=== PATIENT | female | born 1980 | race Two or more races ===

== ENCOUNTER 2020-02-04 17:36 | Inpatient (IN) | payer BC, MEDICAID ==
[~2020-02-04] VITALS: Ht 172.7 cm; Wt 60.6 kg
[~2020-02-04 17:36] MED LIST: IBUP600T27 PO; IBUPROFEN PO
[2020-02-04 18:34] LABS: Hematocrit 12.3 % (36.0-46.0)
[2020-02-04 18:35] LABS: Mean Corpuscular Hemoglobin 32.4 pg (28.0-32.0); Mean Corpuscular Hgb Conc. 36.8 g/dL (32.0-36.0); Mean Corpuscular Volume 88.2 fL (80.0-100.0); Platelet Count (auto) 164 10^3/uL (140-450); Red Cell Distribution Width 19.2 % (11.8-14.3); White Blood Cell 6.9 10^3/uL (4.4-10.8)
[2020-02-04 18:46] LABS: Albumin 1.7 g/dL (3.4-5.0); Anion Gap 13 (5-15); Blood Alcohol < 3.0 mg/dL (0-5); Blood Urea Nitrogen 18 mg/dL (7-18); Calcium 7.6 mg/dL (8.5-10.1); Carbon Dioxide 23 mmol/L (21-32); Chloride 80 mmol/L (98-107); Glucose 120 mg/dL (74-106); INR 2.12 (0.9-1.15); Magnesium 1.7 mg/dL (1.6-2.6); Partial Thromboplastin Time 42.2 sec (23.64-32.05)
[2020-02-04 18:50] LABS: Lactic Acid w/Reflex 3.1 mmol/L (0.4-2.0)
[2020-02-04 18:52] LABS: Alanine Aminotransferase 31 U/L (13-56); Alkaline Phosphatase 151 U/L (45-117); Aspartate Aminotransferase 135 U/L (15-37); BUN/Creatinine Ratio 13.6; Bilirubin, Total 3.7 mg/dL (0.2-1.0); GFR African American 58 mL/min; GFR Non-African American 48 mL/min; Total Protein 5.6 g/dL (6.4-8.2)
[2020-02-04] MEDS ORDERED: LACTULOSE 20Gm/30ML SOLN PO ONE ×2 (19:00→19:15)
[2020-02-04] MEDS ORDERED: NOREPINEPHRINE 8 MG/250ML KIT 250 ML IV ONE (19:04)
[2020-02-04 19:14] LABS: Potassium 2.9 mmol/L (3.5-5.1); Sodium 116 mmol/L (136-145)
[2020-02-04 19:15] LABS: Band Neutrophils % (manual) 0; Basophils % (manual) 0 (0.0-2.0); Blast Cells 0; Eosinophils % (manual) 0 (0-7); Hemoglobin 4.5 g/dL (12.2-16.2); Metamyelocytes % 0; Myelocytes % 0; Promyelocytes % 0; Reactive Lymphocytes 0
[2020-02-04] MEDS: NOREPINEPHRINE 8 MG/250ML KIT 250 ML IV SCH (19:16)
[2020-02-04 19:24] LABS: Amylase 39 U/L (25-115); Lipase 386 U/L (73-393)
[2020-02-04 19:36] LABS: Alcohol, Urine < 3.0 mg/dL (0-5); Amphetamine Screen, Urine NEGATIVE (NEGATIVE); Barbiturate Scree,Urine NEGATIVE (NEGATIVE); Benzodiazephine Screen, Urine NEGATIVE (NEGATIVE); Cannabinoid Screen, Urine NEGATIVE (NEGATIVE); Cocaine Screen, Urine NEGATIVE (NEGATIVE); Opiate Scree,Urine NEGATIVE (NEGATIVE); Phencyclidine Screen, Urine NEGATIVE (NEGATIVE)
[2020-02-04] MEDS ORDERED: levoFLOXacin 750MG 150 ML IV ONE (19:45)
[2020-02-04] MEDS ORDERED: SODIUM CHLORIDE 0.9% 1,000 ML IV ONE ×2 (19:45→22:30)
[2020-02-04 20:00] LABS: Lymphocytes % (manual) 11 (10.0-50.0); Monocytes % (manual) 4 (0-12)
[2020-02-04 20:07] LABS: Urine Bacteria MANY /hpf (None Seen); Urine Blood Negative /uL (Negative); Urine Hyaline Cast MANY /lpf (0 - 2); Urine Mucus FEW (None Seen); Urine Specific Gravity 1.016 (1.001-1.035); Urine WBC 60 /hpf (0 - 5)
[2020-02-04] MEDS: POTASSIUM CHL 20MEQ/100ML 100 ML IV SCH ×2 (21:25→21:45)
[2020-02-04 22:00] VITALS: BP 88/51
[2020-02-04 22:20] VITALS: BP 106/65
[2020-02-04] MEDS ORDERED: DEXTROSE (50%) 50ML SYRG IV PRN (22:30)
[2020-02-04] MEDS ORDERED: MORPHINE SULFATE 4 MG/ML SYR/VIAL IV PRN (22:30)
[2020-02-04] MEDS: LACTULOSE 20Gm/30ML SOLN PO SCH (22:30)
[2020-02-04] MEDS ORDERED: DOCUSATE SOD 100 MG CAP PO PRN (22:30)
[2020-02-04 23:00] VITALS: BP 103/57
[2020-02-04 23:15] VITALS: BP 105/65
[2020-02-05] MEDS: InsuLIN REG 1unit/0.01ml Soln (100units/ml) SC SCH ×6 (00:45→20:00)
[2020-02-05] MEDS: LACTULOSE 20Gm/30ML SOLN PO SCH ×4 (00:54→18:15)
[2020-02-05] MEDS: ACCU-CHEK COMFORT CURVE STRIP VI SCH ×6 (00:56→20:22)
[2020-02-05 01:00] VITALS: BP 108/63
[2020-02-05] MEDS: ONDANSETRON HCL 4 MG/2 ML VIAL IV PRN (01:48)
[2020-02-05 02:11] LABS: Basophils # (auto) 0.1 10 ^3/uL (0-0.2); Basophils % (auto) 0.8 % (0.0-2.0); Eosinophils # (auto) 0 10 ^3/uL (0-0.8); Monocytes # (auto) 0.5 10 ^3/uL (0-1.3); Nucleated Red Blood Cells % 0.4 %
[2020-02-05 02:13] LABS: Hematocrit 18.2 % (36.0-46.0); Lymphocytes % (auto) 9.1 % (10.0-50.0); Mean Corpuscular Hemoglobin 31.4 pg (28.0-32.0); Mean Corpuscular Hgb Conc. 35.1 g/dL (32.0-36.0); Mean Corpuscular Volume 89.6 fL (80.0-100.0); Monocytes % (auto) 4.3 % (0.0-12.0); Neutrophils # (auto) 9.9 10 ^3/uL (1.6-8.6); Neutrophils % (auto) 85.8 % (37.0-80.0); Platelet Count (auto) 180 10^3/uL (140-450); Red Blood Cells 2.03 10^6/uL (4.0-5.20); Red Cell Distribution Width 17.1 % (11.8-14.3); White Blood Cell 11.5 10^3/uL (4.4-10.8)
[2020-02-05 02:24] LABS: Hemoglobin 6.4 g/dL (12.2-16.2)
[2020-02-05 02:32] LABS: Calcium 7.3 mg/dL (8.5-10.1); Potassium 3.1 mmol/L (3.5-5.1)
[2020-02-05 02:35] LABS: BUN/Creatinine Ratio 12.6
[2020-02-05 03:00] VITALS: BP 101/58
[2020-02-05 03:19] LABS: Hepatitis B Surface Antibody Negative
[2020-02-05 06:04] LABS: Hepatitis A Total Antibody Negative; Hepatitis B Core Total AB Negative; Hepatitis B Surface Antigen Negative (Negative); Hepatitis C Antibody Negative (Negative)
[2020-02-05 08:10] VITALS: BP 102/65
[2020-02-05 09:44] LABS: Basophils # (auto) 0.1 10 ^3/uL (0-0.2); Eosinophils # (auto) 0 10 ^3/uL (0-0.8); Hemoglobin 8.4 g/dL (12.2-16.2); Monocytes # (auto) 0.5 10 ^3/uL (0-1.3); Red Blood Cells 2.69 10^6/uL (4.0-5.20)
[2020-02-05 09:46] LABS: Basophils % (auto) 0.7 % (0.0-2.0); Hematocrit 24.2 % (36.0-46.0); Lymphocytes # (auto) 1.5 10 ^3/uL (0.4-5.4); Lymphocytes % (auto) 12.5 % (10.0-50.0); Mean Corpuscular Hemoglobin 31.4 pg (28.0-32.0); Mean Corpuscular Hgb Conc. 34.8 g/dL (32.0-36.0); Mean Corpuscular Volume 90.2 fL (80.0-100.0); Monocytes % (auto) 4.3 % (0.0-12.0); Neutrophils # (auto) 9.9 10 ^3/uL (1.6-8.6); Neutrophils % (auto) 82.5 % (37.0-80.0); Nucleated Red Blood Cells % 0.1 %; Platelet Count (auto) 138 10^3/uL (140-450); Red Cell Distribution Width 15.9 % (11.8-14.3)
[2020-02-05 09:50] LABS: Albumin 1.4 g/dL (3.4-5.0); Calcium 7.1 mg/dL (8.5-10.1); Potassium 3.1 mmol/L (3.5-5.1)
[2020-02-05 09:53] LABS: BUN/Creatinine Ratio 13.7
[2020-02-05 09:55] LABS: Bilirubin, Total 6.2 mg/dL (0.2-1.0); Total Protein 5.2 g/dL (6.4-8.2)
[2020-02-05] MEDS: levoFLOXacin 750MG 150 ML IV SCH (10:09)
[2020-02-05 14:34] LABS: INR 2.04 (0.9-1.15); Partial Thromboplastin Time 42.6 sec (23.64-32.05)
[2020-02-05] MEDS ORDERED: PANTOPRAZOLE 40 MG/10 ML VIAL INJ IV ONE (15:00)
[2020-02-05] MEDS ORDERED: POTASSIUM EFFERVESENT TAB 25 MEQ PO ONE (15:00)
[2020-02-05] MEDS ORDERED: MORPHINE SULF INJ 2 MG/ML SYRINGE 1ML IV PRN (15:00)
[2020-02-05] MEDS ORDERED: FUROSEMIDE 40 MG/4 ML VIAL IV ONE (15:00)
[2020-02-05] MEDS: PANTOPRAZOLE 40mg/50ML NS AE 50 ML IV SCH ×2 (15:30→19:38)
[2020-02-05] MEDS: OCTREOTIDE ACETATE 500 MCG in SODIUM CHL 0.9% 99 ML IV SCH (16:14)
[2020-02-05 19:31] LABS: Calcium 7.3 mg/dL (8.5-10.1); Potassium 3.5 mmol/L (3.5-5.1)
[2020-02-05 19:34] LABS: BUN/Creatinine Ratio 14.4
[2020-02-05] MEDS: NOREPINEPHRINE 8 MG/250ML KIT 250 ML IV SCH (19:38)
[2020-02-06] VITALS (53 sets, daily range): BP systolic 85–103; BP diastolic 41–63
[2020-02-06] MEDS: LACTULOSE 20Gm/30ML SOLN PO SCH ×4 (00:30→18:00)
[2020-02-06] MEDS: ACCU-CHEK COMFORT CURVE STRIP VI SCH ×6 (00:30→20:00)
[2020-02-06] MEDS: OCTREOTIDE ACETATE 500 MCG in SODIUM CHL 0.9% 99 ML IV SCH ×3 (00:58→20:38)
[2020-02-06] MEDS: PANTOPRAZOLE 40mg/50ML NS AE 50 ML IV SCH ×5 (00:58→20:41)
[2020-02-06] MEDS: InsuLIN REG 1unit/0.01ml Soln (100units/ml) SC SCH ×6 (04:00→20:00)
[2020-02-06 05:28] LABS: Basophils # (auto) 0 10 ^3/uL (0-0.2); Basophils % (auto) 0.4 % (0.0-2.0); Eosinophils # (auto) 0 10 ^3/uL (0-0.8); Hematocrit 23.7 % (36.0-46.0); Hemoglobin 8.4 g/dL (12.2-16.2); Lymphocytes # (auto) 1.5 10 ^3/uL (0.4-5.4); Mean Corpuscular Hgb Conc. 35.3 g/dL (32.0-36.0); Mean Corpuscular Volume 90.7 fL (80.0-100.0); Monocytes # (auto) 0.6 10 ^3/uL (0-1.3); Monocytes % (auto) 7.6 % (0.0-12.0); Neutrophils # (auto) 6.2 10 ^3/uL (1.6-8.6); Nucleated Red Blood Cells % 0.1 %; Platelet Count (auto) 94 10^3/uL (140-450); Red Blood Cells 2.62 10^6/uL (4.0-5.20); Red Cell Distribution Width 15.8 % (11.8-14.3); White Blood Cell 8.3 10^3/uL (4.4-10.8)
[2020-02-06 05:40] LABS: BUN/Creatinine Ratio 13.5; Potassium 3.2 mmol/L (3.5-5.1)
[2020-02-06 08:44] LABS: INR 2.17 (0.9-1.15)
[2020-02-06] MEDS ORDERED: POTASSIUM CHL 20 Meq TABLET PO ONE (09:30)
[2020-02-06] MEDS ORDERED: POTASSIUM EFFERVESENT TAB 25 MEQ PO ONE (09:45)
[2020-02-06] MEDS: FUROSEMIDE 40 MG/4 ML VIAL IV SCH ×3 (09:50→12:30)
[2020-02-06] MEDS: ALBUMIN 25% 100 ML IV SCH ×2 (09:50→18:00)
[2020-02-06] MEDS ORDERED: FUROSEMIDE 40 MG/4 ML VIAL IV SCH (10:00)
[2020-02-06] MEDS: levoFLOXacin 750MG 150 ML IV SCH (12:20)
[2020-02-06 13:30] LABS: Urine Bacteria FEW /hpf (None Seen); Urine Blood 1+ /uL (Negative); Urine Specific Gravity 1.005 (1.001-1.035); Urine WBC 2 /hpf (0 - 5)
[2020-02-06 13:53] LABS: Sodium Urine 29 mmol/L (40-220)
[2020-02-06 13:55] LABS: Creatinine, Urine 16 mg/dL (30.0-125.0)
[2020-02-06] MEDS: NOREPINEPHRINE 8 MG/250ML KIT 250 ML IV SCH (17:10)
[2020-02-06] MEDS: SPIRONOLACTONE 25 MG TAB PO SCH (18:00)
[2020-02-06 19:23] LABS: Calcium 7.4 mg/dL (8.5-10.1)
[2020-02-06 19:26] LABS: BUN/Creatinine Ratio 11.1
[2020-02-07] VITALS (95 sets, daily range): BP systolic 80–127; BP diastolic 48–81
[2020-02-07] MEDS: ALBUMIN 25% 100 ML IV SCH (01:04)
[2020-02-07] MEDS: PANTOPRAZOLE 40mg/50ML NS AE 50 ML IV SCH ×5 (02:00→23:01)
[2020-02-07] MEDS: InsuLIN REG 1unit/0.01ml Soln (100units/ml) SC SCH ×6 (04:00→20:24)
[2020-02-07] MEDS: ACCU-CHEK COMFORT CURVE STRIP VI SCH ×6 (04:00→20:23)
[2020-02-07 04:31] LABS: Albumin 2.5 g/dL (3.4-5.0); Calcium 7.5 mg/dL (8.5-10.1)
[2020-02-07 04:36] LABS: BUN/Creatinine Ratio 10.2; Bilirubin, Total 7.1 mg/dL (0.2-1.0); Phosphorus 1.8 mg/dL (2.5-4.90); Total Protein 5.2 g/dL (6.4-8.2)
[2020-02-07 04:56] LABS: Potassium 2.9 mmol/L (3.5-5.1)
[2020-02-07] MEDS: LACTULOSE 20Gm/30ML SOLN PO SCH ×5 (05:34→23:35)
[2020-02-07] MEDS: POTASSIUM CHL 20MEQ/100ML 100 ML IV SCH ×2 (05:57→07:55)
[2020-02-07] MEDS: SPIRONOLACTONE 25 MG TAB PO SCH ×2 (06:00→18:06)
[2020-02-07] MEDS ORDERED: LORazepam 2MG/ML-1ML VIAL ONE (06:15)
[2020-02-07] MEDS: FUROSEMIDE 40 MG/4 ML VIAL IV SCH ×2 (07:00→09:45)
[2020-02-07] MEDS ORDERED: LORazepam 2MG/ML-1ML VIAL IV ONE (07:00)
[2020-02-07] MEDS: OCTREOTIDE ACETATE 500 MCG in SODIUM CHL 0.9% 99 ML IV SCH ×2 (07:00→17:00)
[2020-02-07 08:52] LABS: Basophils # (auto) 0.1 10 ^3/uL (0-0.2); Eosinophils # (auto) 0 10 ^3/uL (0-0.8); Platelet Count (auto) 78 10^3/uL (140-450)
[2020-02-07 08:54] LABS: Basophils % (auto) 1.4 % (0.0-2.0); Hematocrit 22.7 % (36.0-46.0); Hemoglobin 8.1 g/dL (12.2-16.2); Lymphocytes # (auto) 1.1 10 ^3/uL (0.4-5.4); Lymphocytes % (auto) 15.3 % (10.0-50.0); Mean Corpuscular Hemoglobin 33.1 pg (28.0-32.0); Mean Corpuscular Hgb Conc. 35.8 g/dL (32.0-36.0); Mean Corpuscular Volume 92.5 fL (80.0-100.0); Monocytes # (auto) 0.5 10 ^3/uL (0-1.3); Monocytes % (auto) 7.2 % (0.0-12.0); Neutrophils # (auto) 5.5 10 ^3/uL (1.6-8.6); Neutrophils % (auto) 76.1 % (37.0-80.0); Nucleated Red Blood Cells % 0.3 %; Red Blood Cells 2.45 10^6/uL (4.0-5.20); Red Cell Distribution Width 16.4 % (11.8-14.3); White Blood Cell 7.3 10^3/uL (4.4-10.8)
[2020-02-07] MEDS ORDERED: FUROSEMIDE 20 MG/2 ML VIAL ONE ×2 (09:40→09:55)
[2020-02-07] MEDS: levoFLOXacin 750MG 150 ML IV SCH (09:44)
[2020-02-07] MEDS: MIDODRINE HCL 10 MG TAB PO SCH ×2 (09:44→21:58)
[2020-02-07] MEDS ORDERED: LORazepam 2MG/ML-1ML VIAL IV PRN ×2 (10:00)
[2020-02-07] MEDS ORDERED: POTASSIUM PHOSPHATE 44 MEQ in D5W 5% 250 ML IV ONE (11:30)
[2020-02-07] MEDS: MAGNESIUM SULFATE 1GM/100ML 100 ML IV SCH ×2 (12:37→14:00)
[2020-02-07] MEDS: NOREPINEPHRINE 8 MG/250ML KIT 250 ML IV SCH ×2 (13:28→23:02)
[2020-02-07] MEDS ORDERED: PHYTONADIONE (VIT K)10 MG/ML 1ML VIAL SUBCUT ONE (15:00)
[2020-02-07] MEDS ORDERED: phytonadione 1 ML ONE (15:56)
[2020-02-07 18:49] LABS: Basophils # (auto) 0 10 ^3/uL (0-0.2); Basophils % (auto) 0.5 % (0.0-2.0); Eosinophils # (auto) 0 10 ^3/uL (0-0.8); Hematocrit 24.9 % (36.0-46.0); Hemoglobin 8.5 g/dL (12.2-16.2); Lymphocytes # (auto) 0.9 10 ^3/uL (0.4-5.4); Lymphocytes % (auto) 8.8 % (10.0-50.0); Mean Corpuscular Hemoglobin 31.8 pg (28.0-32.0); Mean Corpuscular Hgb Conc. 34.3 g/dL (32.0-36.0); Mean Corpuscular Volume 92.7 fL (80.0-100.0); Monocytes # (auto) 0.9 10 ^3/uL (0-1.3); Monocytes % (auto) 9.4 % (0.0-12.0); Neutrophils # (auto) 7.9 10 ^3/uL (1.6-8.6); Neutrophils % (auto) 81.3 % (37.0-80.0); Nucleated Red Blood Cells % 0.3 %; Platelet Count (auto) 79 10^3/uL (140-450); Red Blood Cells 2.68 10^6/uL (4.0-5.20); Red Cell Distribution Width 16.3 % (11.8-14.3); White Blood Cell 9.8 10^3/uL (4.4-10.8)
[2020-02-07 22:30] LABS: BUN/Creatinine Ratio 8.6; Calcium 7.5 mg/dL (8.5-10.1); Potassium 3.5 mmol/L (3.5-5.1)
[2020-02-08] VITALS (92 sets, daily range): BP systolic 86–121; BP diastolic 41–81
[2020-02-08] MEDS: ACCU-CHEK COMFORT CURVE STRIP VI SCH ×5 (00:05→18:13)
[2020-02-08] MEDS: InsuLIN REG 1unit/0.01ml Soln (100units/ml) SC SCH ×5 (03:49→18:00)
[2020-02-08] MEDS: PANTOPRAZOLE 40mg/50ML NS AE 50 ML IV SCH ×2 (04:25→11:17)
[2020-02-08 05:45] LABS: Albumin 1.9 g/dL (3.4-5.0); BUN/Creatinine Ratio 9.7; Calcium 7.2 mg/dL (8.5-10.1); Potassium 3.5 mmol/L (3.5-5.1)
[2020-02-08] MEDS: LACTULOSE 20Gm/30ML SOLN PO SCH ×3 (05:46→18:00)
[2020-02-08] MEDS: SPIRONOLACTONE 25 MG TAB PO SCH ×2 (05:46→18:00)
[2020-02-08 05:48] LABS: Bilirubin, Total 6.3 mg/dL (0.2-1.0); Total Protein 4.9 g/dL (6.4-8.2)
[2020-02-08 08:39] LABS: INR 1.95 (0.9-1.15); Partial Thromboplastin Time 48.1 sec (23.64-32.05)
[2020-02-08] MEDS: NOREPINEPHRINE 8 MG/250ML KIT 250 ML IV SCH (09:27)
[2020-02-08] MEDS: MIDODRINE HCL 10 MG TAB PO SCH ×2 (10:00→21:55)
[2020-02-08] MEDS: levoFLOXacin 750MG 150 ML IV SCH (11:17)
[2020-02-08] MEDS ORDERED: CLINIMIX PER PHARMACY 0 ML IV SCH (11:45)
[2020-02-08 12:44] LABS: Eosinophils # (auto) 0 10 ^3/uL (0-0.8); Hematocrit 24.6 % (36.0-46.0); Hemoglobin 8.4 g/dL (12.2-16.2); Monocytes # (auto) 1.5 10 ^3/uL (0-1.3); Platelet Count (auto) 72 10^3/uL (140-450); White Blood Cell 12.4 10^3/uL (4.4-10.8)
[2020-02-08 12:45] LABS: Basophils # (auto) 0 10 ^3/uL (0-0.2); Basophils % (auto) 0.3 % (0.0-2.0); Lymphocytes # (auto) 1.2 10 ^3/uL (0.4-5.4); Lymphocytes % (auto) 9.9 % (10.0-50.0); Mean Corpuscular Hemoglobin 31.9 pg (28.0-32.0); Mean Corpuscular Hgb Conc. 34.2 g/dL (32.0-36.0); Mean Corpuscular Volume 93.2 fL (80.0-100.0); Monocytes % (auto) 11.9 % (0.0-12.0); Neutrophils # (auto) 9.6 10 ^3/uL (1.6-8.6); Neutrophils % (auto) 77.9 % (37.0-80.0); Nucleated Red Blood Cells % 0.2 %; Red Blood Cells 2.64 10^6/uL (4.0-5.20); Red Cell Distribution Width 16.7 % (11.8-14.3)
[2020-02-08] MEDS: VASOPRESSIN 50 UNITS in D5W 5% 247.5 ML IV SCH (13:47)
[2020-02-08] MEDS: ALBUMIN 25% 50 ML IV SCH ×2 (14:16→14:30)
[2020-02-08] MEDS ORDERED: POTASSIUM CHL 20MEQ/100ML 100 ML IV ONE (16:30)
[2020-02-08] MEDS ORDERED: DEXTROSE (50%) 50ML SYRG IV SCH (18:00)
[2020-02-08] MEDS: AMINO ACID INFUSION IN D5W 1,000 ML IV NR (20:22)
[2020-02-08] MEDS: PANTOPRAZOLE 40 MG/10 ML VIAL INJ IV SCH (21:55)
[2020-02-09] VITALS (70 sets, daily range): BP systolic 82–117; BP diastolic 40–72
[2020-02-09 04:37] LABS: Calcium 7.1 mg/dL (8.5-10.1); Magnesium 1.3 mg/dL (1.6-2.6)
[2020-02-09 04:42] LABS: Basophils # (auto) 0 10 ^3/uL (0-0.2); Basophils % (auto) 0.2 % (0.0-2.0); Eosinophils # (auto) 0 10 ^3/uL (0-0.8); Hematocrit 22.3 % (36.0-46.0); Hemoglobin 7.6 g/dL (12.2-16.2); Lymphocytes # (auto) 1.4 10 ^3/uL (0.4-5.4); Lymphocytes % (auto) 9.8 % (10.0-50.0); Mean Corpuscular Hemoglobin 31.6 pg (28.0-32.0); Mean Corpuscular Hgb Conc. 33.9 g/dL (32.0-36.0); Monocytes % (auto) 14.3 % (0.0-12.0); Neutrophils # (auto) 10.4 10 ^3/uL (1.6-8.6); Neutrophils % (auto) 75.7 % (37.0-80.0); Nucleated Red Blood Cells % 0.1 %; Platelet Count (auto) 57 10^3/uL (140-450); Red Cell Distribution Width 16.5 % (11.8-14.3); White Blood Cell 13.7 10^3/uL (4.4-10.8)
[2020-02-09 04:43] LABS: BUN/Creatinine Ratio 11.5; Bilirubin, Total 7.8 mg/dL (0.2-1.0); Pre Albumin 3.8 mg/dL (20.0-40.0); Total Protein 4.9 g/dL (6.4-8.2)
[2020-02-09 05:04] LABS: Potassium 2.9 mmol/L (3.5-5.1)
[2020-02-09] MEDS ORDERED: POTASSIUM CHL 20MEQ/100ML 100 ML IV ONE (05:30)
[2020-02-09] MEDS: LACTULOSE 20Gm/30ML SOLN PO SCH ×4 (06:00→18:20)
[2020-02-09] MEDS: SPIRONOLACTONE 25 MG TAB PO SCH ×2 (06:00→18:20)
[2020-02-09] MEDS: ACCU-CHEK COMFORT CURVE STRIP VI SCH ×4 (06:15→18:21)
[2020-02-09] MEDS: InsuLIN REG 1unit/0.01ml Soln (100units/ml) SC SCH ×4 (06:15→18:22)
[2020-02-09] MEDS: FUROSEMIDE 40 MG/4 ML VIAL IV SCH (07:00)
[2020-02-09] MEDS: PANTOPRAZOLE 40 MG/10 ML VIAL INJ IV SCH ×2 (10:03→22:23)
[2020-02-09] MEDS: levoFLOXacin 750MG 150 ML IV SCH (10:05)
[2020-02-09] MEDS: POTASSIUM CHL 20MEQ/100ML 100 ML IV SCH ×4 (10:06→16:46)
[2020-02-09] MEDS: MIDODRINE HCL 10 MG TAB PO SCH ×2 (10:30→18:20)
[2020-02-09] MEDS ORDERED: SODIUM PHOSP 40 MEQ in D5W 5% 250 ML IV ONE (11:00)
[2020-02-09] MEDS: MAGNESIUM SULFATE 1GM/100ML 100 ML IV SCH ×4 (11:53→15:39)
[2020-02-09] MEDS ORDERED: POTASSIUM PHOSPHATE 44 MEQ in D5W 5% 250 ML IV ONE ×2 (12:15→19:00)
[2020-02-09] MEDS ORDERED: CLINIMIX PER PHARMACY 0 ML IV SCH (13:00)
[2020-02-09] MEDS: VASOPRESSIN 50 UNITS in D5W 5% 247.5 ML IV SCH ×2 (13:00→21:35)
[2020-02-09] MEDS: NOREPINEPHRINE BITARTRATE 16 MG in D5W 5% 250 ML IV SCH (14:26)
[2020-02-09] MEDS: AMINO ACID INFUSION IN D5W 1,000 ML IV NR (19:49)
[2020-02-09] MEDS ORDERED: TPN PER PHARMACY IV NR ×10 (20:00)
[2020-02-09] MEDS ORDERED: TPN PER PHARMACY IV SCH (20:00)
[2020-02-10] VITALS (88 sets, daily range): BP systolic 84–121; BP diastolic 36–80
[2020-02-10] MEDS: LACTULOSE 20Gm/30ML SOLN PO SCH ×5 (00:23→23:49)
[2020-02-10] MEDS: InsuLIN REG 1unit/0.01ml Soln (100units/ml) SC SCH ×4 (00:26→18:49)
[2020-02-10] MEDS: NOREPINEPHRINE BITARTRATE 16 MG in D5W 5% 250 ML IV SCH (04:00)
[2020-02-10] MEDS: ACCU-CHEK COMFORT CURVE STRIP VI SCH ×4 (05:52→18:00)
[2020-02-10] MEDS: MIDODRINE HCL 10 MG TAB PO SCH ×2 (06:00→18:47)
[2020-02-10] MEDS: SPIRONOLACTONE 25 MG TAB PO SCH ×2 (06:00→18:47)
[2020-02-10 06:08] LABS: Basophils # (auto) 0 10 ^3/uL (0-0.2); Basophils % (auto) 0.2 % (0.0-2.0); Eosinophils # (auto) 0 10 ^3/uL (0-0.8); Hematocrit 21.6 % (36.0-46.0); Hemoglobin 7.4 g/dL (12.2-16.2); Lymphocytes # (auto) 1.1 10 ^3/uL (0.4-5.4); Lymphocytes % (auto) 8.2 % (10.0-50.0); Mean Corpuscular Hemoglobin 31.9 pg (28.0-32.0); Mean Corpuscular Hgb Conc. 34.3 g/dL (32.0-36.0); Mean Corpuscular Volume 93.2 fL (80.0-100.0); Monocytes # (auto) 2.1 10 ^3/uL (0-1.3); Neutrophils % (auto) 75.6 % (37.0-80.0); Nucleated Red Blood Cells % 0.2 %; Platelet Count (auto) 51 10^3/uL (140-450); Red Blood Cells 2.32 10^6/uL (4.0-5.20); Red Cell Distribution Width 17.5 % (11.8-14.3); White Blood Cell 13.2 10^3/uL (4.4-10.8)
[2020-02-10 06:18] LABS: Potassium 4.3 mmol/L (3.5-5.1)
[2020-02-10 06:24] LABS: Albumin 1.7 g/dL (3.4-5.0); BUN/Creatinine Ratio 14.6; Calcium 6.9 mg/dL (8.5-10.1); Magnesium 1.7 mg/dL (1.6-2.6)
[2020-02-10 06:27] LABS: Bilirubin, Total 5.4 mg/dL (0.2-1.0); Phosphorus 2.2 mg/dL (2.5-4.90); Total Protein 4.6 g/dL (6.4-8.2)
[2020-02-10] MEDS: FUROSEMIDE 40 MG/4 ML VIAL IV SCH (07:06)
[2020-02-10] MEDS: PANTOPRAZOLE 40 MG/10 ML VIAL INJ IV SCH ×2 (10:17→22:03)
[2020-02-10] MEDS: levoFLOXacin 250 MG TAB PO SCH (11:00)
[2020-02-10] MEDS ORDERED: SODIUM CHL 3% 500 ML IV ONE (11:30)
[2020-02-10 13:12] LABS: Basophils # (auto) 0 10 ^3/uL (0-0.2); Basophils % (auto) 0.4 % (0.0-2.0); Eosinophils # (auto) 0 10 ^3/uL (0-0.8); Hematocrit 21.8 % (36.0-46.0); Hemoglobin 7.4 g/dL (12.2-16.2); Lymphocytes # (auto) 1.1 10 ^3/uL (0.4-5.4); Lymphocytes % (auto) 8.2 % (10.0-50.0); Mean Corpuscular Hemoglobin 31.8 pg (28.0-32.0); Mean Corpuscular Hgb Conc. 34.2 g/dL (32.0-36.0); Mean Corpuscular Volume 92.9 fL (80.0-100.0); Monocytes % (auto) 15.5 % (0.0-12.0); Neutrophils # (auto) 9.8 10 ^3/uL (1.6-8.6); Neutrophils % (auto) 75.9 % (37.0-80.0); Nucleated Red Blood Cells % 0.1 %; Platelet Count (auto) 53 10^3/uL (140-450); Red Blood Cells 2.34 10^6/uL (4.0-5.20); Red Cell Distribution Width 17.4 % (11.8-14.3); White Blood Cell 12.9 10^3/uL (4.4-10.8)
[2020-02-10 13:33] LABS: BUN/Creatinine Ratio 12.4; Calcium 7.3 mg/dL (8.5-10.1); Potassium 3.5 mmol/L (3.5-5.1)
[2020-02-10] MEDS ORDERED: FUROSEMIDE 40 MG/4 ML VIAL IV SCH (18:00)
[2020-02-10] MEDS ORDERED: TPN PER PHARMACY IV NR ×10 (20:00)
[2020-02-10] MEDS ORDERED: FUROSEMIDE 20 MG/2 ML VIAL ONE (20:51)
[2020-02-10 23:01] LABS: Hemoglobin 8.2 g/dL (12.2-16.2)
[2020-02-11] VITALS (91 sets, daily range): BP systolic 81–114; BP diastolic 32–79
[2020-02-11] MEDS: FUROSEMIDE 100 MG/10ML VIAL IV SCH ×2 (05:49→17:47)
[2020-02-11] MEDS: SPIRONOLACTONE 25 MG TAB PO SCH ×2 (05:50→17:47)
[2020-02-11] MEDS: MIDODRINE HCL 10 MG TAB PO SCH ×2 (05:50→17:47)
[2020-02-11] MEDS: LACTULOSE 20Gm/30ML SOLN PO SCH ×3 (05:50→18:00)
[2020-02-11] MEDS: NOREPINEPHRINE BITARTRATE 16 MG in D5W 5% 250 ML IV SCH (05:52)
[2020-02-11 06:10] LABS: Basophils # (auto) 0 10 ^3/uL (0-0.2); Basophils % (auto) 0.2 % (0.0-2.0); Eosinophils # (auto) 0 10 ^3/uL (0-0.8); Hematocrit 23.2 % (36.0-46.0); Hemoglobin 7.8 g/dL (12.2-16.2); Lymphocytes % (auto) 7.6 % (10.0-50.0); Mean Corpuscular Hgb Conc. 33.8 g/dL (32.0-36.0); Mean Corpuscular Volume 91.8 fL (80.0-100.0); Monocytes # (auto) 2.3 10 ^3/uL (0-1.3); Monocytes % (auto) 17.3 % (0.0-12.0); Neutrophils # (auto) 10.1 10 ^3/uL (1.6-8.6); Neutrophils % (auto) 74.9 % (37.0-80.0); Platelet Count (auto) 58 10^3/uL (140-450); Red Blood Cells 2.52 10^6/uL (4.0-5.20); Red Cell Distribution Width 18.3 % (11.8-14.3); White Blood Cell 13.5 10^3/uL (4.4-10.8)
[2020-02-11 06:29] LABS: Calcium 7.2 mg/dL (8.5-10.1); Potassium 3.3 mmol/L (3.5-5.1)
[2020-02-11 06:32] LABS: BUN/Creatinine Ratio 15.7
[2020-02-11] MEDS: PANTOPRAZOLE 40 MG/10 ML VIAL INJ IV SCH ×2 (09:41→23:52)
[2020-02-11] MEDS: levoFLOXacin 250 MG TAB PO SCH (09:42)
[2020-02-11] MEDS ORDERED: LACTULOSE 20Gm/30ML SOLN PO PRN (19:15)
[2020-02-11] MEDS: VASOPRESSIN 50 UNITS in D5W 5% 247.5 ML IV SCH ×3 (21:20)
[2020-02-11] MEDS: SODIUM CHLORIDE 1 GM TAB PO SCH (23:52)
[2020-02-12] VITALS (93 sets, daily range): BP systolic 80–110; BP diastolic 38–71
[2020-02-12 04:27] LABS: Basophils # (auto) 0 10 ^3/uL (0-0.2); Eosinophils # (auto) 0 10 ^3/uL (0-0.8); Lymphocytes # (auto) 1.2 10 ^3/uL (0.4-5.4); Platelet Count (auto) 65 10^3/uL (140-450)
[2020-02-12 04:29] LABS: Basophils % (auto) 0.2 % (0.0-2.0); Hematocrit 22.4 % (36.0-46.0); Hemoglobin 7.5 g/dL (12.2-16.2); Lymphocytes % (auto) 8.2 % (10.0-50.0); Mean Corpuscular Hemoglobin 30.6 pg (28.0-32.0); Mean Corpuscular Hgb Conc. 33.4 g/dL (32.0-36.0); Mean Corpuscular Volume 91.6 fL (80.0-100.0); Monocytes # (auto) 2.1 10 ^3/uL (0-1.3); Neutrophils # (auto) 10.9 10 ^3/uL (1.6-8.6); Neutrophils % (auto) 76.6 % (37.0-80.0); Nucleated Red Blood Cells % 0.1 %; Red Blood Cells 2.44 10^6/uL (4.0-5.20); Red Cell Distribution Width 18.6 % (11.8-14.3); White Blood Cell 14.2 10^3/uL (4.4-10.8)
[2020-02-12 04:38] LABS: BUN/Creatinine Ratio 14.4; Calcium 6.9 mg/dL (8.5-10.1)
[2020-02-12 04:48] LABS: Potassium 2.9 mmol/L (3.5-5.1)
[2020-02-12] MEDS ORDERED: POTASSIUM CHL 20 Meq TABLET PO ONE (05:15)
[2020-02-12] MEDS ORDERED: POTASSIUM CHL 20MEQ/100ML 100 ML IV ONE ×2 (05:24→11:45)
[2020-02-12] MEDS: POTASSIUM CHL 20MEQ/100ML 100 ML IV SCH ×2 (05:45→07:24)
[2020-02-12] MEDS: MIDODRINE HCL 10 MG TAB PO SCH ×3 (05:47→17:45)
[2020-02-12] MEDS: FUROSEMIDE 100 MG/10ML VIAL IV SCH (05:47)
[2020-02-12] MEDS: SPIRONOLACTONE 25 MG TAB PO SCH ×2 (05:47→17:45)
[2020-02-12] MEDS: NOREPINEPHRINE BITARTRATE 16 MG in D5W 5% 250 ML IV SCH (07:25)
[2020-02-12] MEDS: PANTOPRAZOLE 40 MG/10 ML VIAL INJ IV SCH ×2 (09:55→21:32)
[2020-02-12] MEDS: SODIUM CHLORIDE 1 GM TAB PO SCH ×2 (09:55→21:32)
[2020-02-12] MEDS: levoFLOXacin 250 MG TAB PO SCH (09:55)
[2020-02-12] MEDS ORDERED: ALBUMIN 25% 50 ML IV ONE (16:30)
[2020-02-12] MEDS: ALBUMIN 25% 50 ML IV SCH (17:20)
[2020-02-13] VITALS (90 sets, daily range): BP systolic 78–107; BP diastolic 36–64
[2020-02-13] MEDS: ALBUMIN 25% 50 ML IV SCH ×2 (00:12→08:30)
[2020-02-13 04:35] LABS: Basophils # (auto) 0.1 10 ^3/uL (0-0.2); Eosinophils # (auto) 0 10 ^3/uL (0-0.8); Eosinophils % (auto) 0.2 % (0.0-7.0); Hemoglobin 7.7 g/dL (12.2-16.2); Lymphocytes # (auto) 0.9 10 ^3/uL (0.4-5.4); Monocytes # (auto) 1.6 10 ^3/uL (0-1.3); Nucleated Red Blood Cells % 0.1 %
[2020-02-13 04:37] LABS: Basophils % (auto) 0.5 % (0.0-2.0); Hematocrit 22.7 % (36.0-46.0); Lymphocytes % (auto) 5.8 % (10.0-50.0); Mean Corpuscular Hemoglobin 31.8 pg (28.0-32.0); Mean Corpuscular Hgb Conc. 33.9 g/dL (32.0-36.0); Mean Corpuscular Volume 93.7 fL (80.0-100.0); Monocytes % (auto) 10.2 % (0.0-12.0); Neutrophils # (auto) 13.3 10 ^3/uL (1.6-8.6); Neutrophils % (auto) 83.3 % (37.0-80.0); Platelet Count (auto) 78 10^3/uL (140-450); Red Blood Cells 2.42 10^6/uL (4.0-5.20); Red Cell Distribution Width 19.5 % (11.8-14.3)
[2020-02-13 04:50] LABS: INR 1.74 (0.9-1.15)
[2020-02-13 04:52] LABS: Magnesium 1.3 mg/dL (1.6-2.6); Potassium 3.8 mmol/L (3.5-5.1)
[2020-02-13 04:57] LABS: BUN/Creatinine Ratio 13.7; Bilirubin, Total 5.7 mg/dL (0.2-1.0); Phosphorus 2.8 mg/dL (2.5-4.90); Total Protein 4.7 g/dL (6.4-8.2)
[2020-02-13] MEDS: ONDANSETRON HCL 4 MG/2 ML VIAL IV PRN (05:35)
[2020-02-13] MEDS: SPIRONOLACTONE 25 MG TAB PO SCH ×2 (06:00→18:37)
[2020-02-13] MEDS: MIDODRINE HCL 10 MG TAB PO SCH ×3 (08:00→18:36)
[2020-02-13] MEDS ORDERED: MAGNESIUM OXIDE 400 MG TAB PO ONE (11:00)
[2020-02-13] MEDS: PANTOPRAZOLE 40 MG/10 ML VIAL INJ IV SCH ×2 (12:35→22:00)
[2020-02-13] MEDS: FUROSEMIDE 100 MG/10ML VIAL IV SCH (12:35)
[2020-02-13] MEDS: levoFLOXacin 250 MG TAB PO SCH (12:36)
[2020-02-13] MEDS: NOREPINEPHRINE BITARTRATE 16 MG in SODIUM CHL 0.9% 234 ML IV SCH (12:49)
[2020-02-13] MEDS: NOREPINEPHRINE BITARTRATE 16 MG in D5W 5% 250 ML IV SCH (12:49)
[2020-02-13] MEDS: VASOPRESSIN 50 UNITS in D5W 5% 247.5 ML IV SCH (13:00)
[2020-02-13] MEDS: MAGNESIUM OXIDE 400 MG TAB PO SCH (22:00)
[2020-02-14] VITALS (94 sets, daily range): BP systolic 87–108; BP diastolic 49–68
[2020-02-14 03:45] LABS: Basophils # (auto) 0.1 10 ^3/uL (0-0.2); Basophils % (auto) 0.4 % (0.0-2.0); Eosinophils # (auto) 0 10 ^3/uL (0-0.8); Hemoglobin 7.7 g/dL (12.2-16.2); Monocytes # (auto) 1.8 10 ^3/uL (0-1.3)
[2020-02-14 03:48] LABS: Hematocrit 22.9 % (36.0-46.0); Lymphocytes # (auto) 1.1 10 ^3/uL (0.4-5.4); Lymphocytes % (auto) 6.9 % (10.0-50.0); Mean Corpuscular Hemoglobin 31.3 pg (28.0-32.0); Mean Corpuscular Hgb Conc. 33.8 g/dL (32.0-36.0); Mean Corpuscular Volume 92.5 fL (80.0-100.0); Monocytes % (auto) 11.2 % (0.0-12.0); Neutrophils # (auto) 13.3 10 ^3/uL (1.6-8.6); Neutrophils % (auto) 81.5 % (37.0-80.0); Platelet Count (auto) 95 10^3/uL (140-450); Red Blood Cells 2.48 10^6/uL (4.0-5.20); Red Cell Distribution Width 19.7 % (11.8-14.3); White Blood Cell 16.3 10^3/uL (4.4-10.8)
[2020-02-14 04:08] LABS: Potassium 3.5 mmol/L (3.5-5.1)
[2020-02-14 04:11] LABS: BUN/Creatinine Ratio 14.3
[2020-02-14] MEDS: SPIRONOLACTONE 25 MG TAB PO SCH (06:00)
[2020-02-14] MEDS: MAGNESIUM OXIDE 400 MG TAB PO SCH ×2 (08:34→23:00)
[2020-02-14] MEDS: PANTOPRAZOLE 40 MG/10 ML VIAL INJ IV SCH ×2 (08:34→23:00)
[2020-02-14] MEDS: levoFLOXacin 250 MG TAB PO SCH (08:34)
[2020-02-14] MEDS: MIDODRINE HCL 10 MG TAB PO SCH ×3 (08:34→18:09)
[2020-02-14] MEDS: VASOPRESSIN 50 UNITS in D5W 5% 247.5 ML IV SCH (08:35)
[2020-02-14] MEDS: FUROSEMIDE 100 MG/10ML VIAL IV SCH (08:35)
[2020-02-14] MEDS ORDERED: FERROUS SULFATE 325 MG TAB PO SCH (12:00)
[2020-02-14] MEDS: NOREPINEPHRINE BITARTRATE 16 MG in SODIUM CHL 0.9% 234 ML IV SCH (13:26)
[2020-02-14] MEDS ORDERED: cefTRIAXone 1GM/50ML D5W 50 ML IV ONE (14:00)
[2020-02-14] MEDS ORDERED: SODIUM FERR GLUC 125 MG in NS 100 ML IV SCH (15:00)
[2020-02-14] MEDS ORDERED: IRON SUCROSE COMPLEX 200 MG in SODIUM CHL 0.9% 100 ML IV SCH (16:00)
[2020-02-15] VITALS (57 sets, daily range): BP systolic 84–102; BP diastolic 45–66
[2020-02-15] MEDS: ONDANSETRON HCL 4 MG/2 ML VIAL IV PRN ×2 (04:05→20:38)
[2020-02-15 04:19] LABS: Basophils # (auto) 0.1 10 ^3/uL (0-0.2); Eosinophils # (auto) 0 10 ^3/uL (0-0.8); Hemoglobin 8.1 g/dL (12.2-16.2); Neutrophils # (auto) 15.6 10 ^3/uL (1.6-8.6)
[2020-02-15 04:21] LABS: Basophils % (auto) 0.7 % (0.0-2.0); Hematocrit 23.7 % (36.0-46.0); Lymphocytes % (auto) 5.3 % (10.0-50.0); Mean Corpuscular Hemoglobin 31.9 pg (28.0-32.0); Mean Corpuscular Hgb Conc. 34.1 g/dL (32.0-36.0); Mean Corpuscular Volume 93.4 fL (80.0-100.0); Monocytes # (auto) 1.7 10 ^3/uL (0-1.3); Monocytes % (auto) 9.2 % (0.0-12.0); Neutrophils % (auto) 84.8 % (37.0-80.0); Platelet Count (auto) 107 10^3/uL (140-450); Red Blood Cells 2.54 10^6/uL (4.0-5.20); White Blood Cell 18.4 10^3/uL (4.4-10.8)
[2020-02-15 04:36] LABS: Red Cell Distribution Width 21.8 % (11.8-14.3)
[2020-02-15 04:38] LABS: % Iron Saturation 94.7 % (15-50); Albumin 1.8 g/dL (3.4-5.0); BUN/Creatinine Ratio 17.5; Calcium 6.6 mg/dL (8.5-10.1); Potassium 3.7 mmol/L (3.5-5.1)
[2020-02-15 04:41] LABS: Bilirubin, Total 5.5 mg/dL (0.2-1.0); Total Protein 4.8 g/dL (6.4-8.2)
[2020-02-15] MEDS: MIDODRINE HCL 10 MG TAB PO SCH ×3 (08:23→18:22)
[2020-02-15] MEDS ORDERED: cefTRIAXone 1GM/50ML D5W 50 ML IV SCH (09:00)
[2020-02-15] MEDS: MAGNESIUM OXIDE 400 MG TAB PO SCH (09:52)
[2020-02-15] MEDS: PANTOPRAZOLE 40 MG/10 ML VIAL INJ IV SCH ×2 (09:52→22:20)
[2020-02-15] MEDS: FUROSEMIDE 100 MG/10ML VIAL IV SCH (10:00)
[2020-02-15] MEDS ORDERED: DOXYCYCLINE 100MG/250ML 250 ML IV ONE (11:00)
[2020-02-15 11:33] LABS: Magnesium 1.5 mg/dL (1.6-2.6)
[2020-02-15 11:37] LABS: Phosphorus 2.8 mg/dL (2.5-4.90)
[2020-02-15] MEDS: PIPERACILLIN-TAZOB 3.375GM 100 ML IV SCH ×2 (11:39→18:22)
[2020-02-15] MEDS ORDERED: POTASSIUM CHL 20 Meq TABLET PO ONE (13:00)
[2020-02-15] MEDS: VASOPRESSIN 50 UNITS in D5W 5% 247.5 ML IV SCH (13:00)
[2020-02-15] MEDS: MAGNESIUM SULFATE 1GM/100ML 100 ML IV SCH ×3 (14:16→15:29)
[2020-02-15] MEDS: NOREPINEPHRINE BITARTRATE 16 MG in SODIUM CHL 0.9% 234 ML IV SCH (16:00)
[2020-02-15] MEDS: DOXYCYCLINE 100MG/250ML 250 ML IV SCH (22:20)
[2020-02-16] VITALS (81 sets, daily range): BP systolic 86–107; BP diastolic 41–66
[2020-02-16] MEDS: PIPERACILLIN-TAZOB 3.375GM 100 ML IV SCH ×5 (00:05→23:50)
[2020-02-16 04:06] LABS: Basophils # (auto) 0.1 10 ^3/uL (0-0.2); Basophils % (auto) 0.7 % (0.0-2.0); Eosinophils # (auto) 0 10 ^3/uL (0-0.8); Lymphocytes % (auto) 5.8 % (10.0-50.0); Mean Corpuscular Hemoglobin 31.4 pg (28.0-32.0)
[2020-02-16 04:10] LABS: Hematocrit 22.9 % (36.0-46.0); Hemoglobin 7.7 g/dL (12.2-16.2); Mean Corpuscular Hgb Conc. 33.7 g/dL (32.0-36.0); Monocytes # (auto) 1.5 10 ^3/uL (0-1.3); Monocytes % (auto) 8.6 % (0.0-12.0); Neutrophils # (auto) 14.9 10 ^3/uL (1.6-8.6); Neutrophils % (auto) 84.9 % (37.0-80.0); Platelet Count (auto) 116 10^3/uL (140-450); Red Blood Cells 2.46 10^6/uL (4.0-5.20); White Blood Cell 17.6 10^3/uL (4.4-10.8)
[2020-02-16 04:17] LABS: Red Cell Distribution Width 22.2 % (11.8-14.3)
[2020-02-16 04:27] LABS: Albumin 1.8 g/dL (3.4-5.0); BUN/Creatinine Ratio 20.4; Bilirubin, Total 4.6 mg/dL (0.2-1.0); Calcium 6.8 mg/dL (8.5-10.1); Magnesium 2.1 mg/dL (1.6-2.6); Total Protein 4.7 g/dL (6.4-8.2)
[2020-02-16 08:10] LABS: INR 1.75 (0.9-1.15); Partial Thromboplastin Time 50.7 sec (23.64-32.05)
[2020-02-16] MEDS: MIDODRINE HCL 10 MG TAB PO SCH ×3 (08:13→17:31)
[2020-02-16] MEDS: FUROSEMIDE 100 MG/10ML VIAL IV SCH ×2 (09:37→13:03)
[2020-02-16] MEDS: PANTOPRAZOLE 40 MG/10 ML VIAL INJ IV SCH ×2 (09:38→21:52)
[2020-02-16] MEDS: DOXYCYCLINE 100MG/250ML 250 ML IV SCH ×2 (09:38→21:52)
[2020-02-16] MEDS ORDERED: FUROSEMIDE 100 MG/10ML VIAL IV ONE (10:45)
[2020-02-16] MEDS ORDERED: ALBUMIN 25% 50 ML IV ONE ×2 (11:34→11:45)
[2020-02-16] MEDS: VASOPRESSIN 50 UNITS in D5W 5% 247.5 ML IV SCH (13:00)
[2020-02-16] MEDS: NOREPINEPHRINE BITARTRATE 16 MG in SODIUM CHL 0.9% 234 ML IV SCH (17:31)
[2020-02-17] VITALS (31 sets, daily range): BP systolic 79–111; BP diastolic 40–69
[2020-02-17 04:18] LABS: Basophils # (auto) 0.1 10 ^3/uL (0-0.2); Basophils % (auto) 0.6 % (0.0-2.0); Eosinophils # (auto) 0 10 ^3/uL (0-0.8); Hematocrit 24.4 % (36.0-46.0); Hemoglobin 8.4 g/dL (12.2-16.2); Lymphocytes # (auto) 1.2 10 ^3/uL (0.4-5.4); Lymphocytes % (auto) 8.3 % (10.0-50.0); Mean Corpuscular Hemoglobin 31.9 pg (28.0-32.0); Mean Corpuscular Hgb Conc. 34.2 g/dL (32.0-36.0); Mean Corpuscular Volume 93.3 fL (80.0-100.0); Monocytes # (auto) 1.3 10 ^3/uL (0-1.3); Neutrophils # (auto) 11.5 10 ^3/uL (1.6-8.6); Neutrophils % (auto) 82.1 % (37.0-80.0); Nucleated Red Blood Cells % 0.1 %; Platelet Count (auto) 125 10^3/uL (140-450); Red Blood Cells 2.62 10^6/uL (4.0-5.20)
[2020-02-17 04:30] LABS: Potassium 3.2 mmol/L (3.5-5.1)
[2020-02-17 04:34] LABS: Calcium 7.2 mg/dL (8.5-10.1)
[2020-02-17] MEDS: PIPERACILLIN-TAZOB 3.375GM 100 ML IV SCH ×3 (05:34→17:20)
[2020-02-17] MEDS ORDERED: POTASSIUM CHL 20MEQ/100ML 100 ML IV ONE ×2 (06:15→06:18)
[2020-02-17] MEDS: MIDODRINE HCL 10 MG TAB PO SCH ×3 (07:50→17:20)
[2020-02-17] MEDS: DOXYCYCLINE 100MG/250ML 250 ML IV SCH ×2 (09:37→22:11)
[2020-02-17] MEDS: PANTOPRAZOLE 40 MG/10 ML VIAL INJ IV SCH ×2 (09:37→22:12)
[2020-02-17] MEDS: FUROSEMIDE 100 MG/10ML VIAL IV SCH ×2 (10:30→10:33)
[2020-02-17] MEDS ORDERED: POTASSIUM CHL 20 Meq TABLET PO ONE (11:00)
[2020-02-17] MEDS ORDERED: POTASSIUM EFFERVESENT TAB 25 MEQ PO ONE (11:00)
[2020-02-18] MEDS: PIPERACILLIN-TAZOB 3.375GM 100 ML IV SCH ×4 (00:33→17:37)
[2020-02-18 05:15] VITALS: BP 96/54
[2020-02-18 09:07] VITALS: BP 92/53
[2020-02-18] MEDS: DOXYCYCLINE 100MG/250ML 250 ML IV SCH ×2 (10:54→22:32)
[2020-02-18] MEDS: PANTOPRAZOLE 40 MG/10 ML VIAL INJ IV SCH ×2 (10:55→22:32)
[2020-02-18] MEDS: MIDODRINE HCL 10 MG TAB PO SCH ×3 (10:55→18:00)
[2020-02-18] MEDS: FUROSEMIDE 100 MG/10ML VIAL IV SCH (10:55)
[2020-02-18] MEDS ORDERED: POTASSIUM CHLORIDE 40 MEQ, LIDOCAINE 1% (LOCAL ANESTH.) 4 ML in SODIUM CHL 0.9% 100 ML IV ONE (11:00)
[2020-02-18] MEDS: MAGNESIUM SULFATE 1GM/100ML 100 ML IV SCH ×4 (12:00→20:39)
[2020-02-18 13:00] VITALS: BP 98/58
[2020-02-18 16:42] VITALS: BP 98/60
[2020-02-18 20:00] VITALS: BP 98/59
[2020-02-18 21:01] VITALS: BP 98/59
[2020-02-19] MEDS: PIPERACILLIN-TAZOB 3.375GM 100 ML IV SCH ×4 (02:19→20:55)
[2020-02-19 04:30] VITALS: BP 101/60
[2020-02-19 06:18] LABS: Basophils # (auto) 0.2 10 ^3/uL (0-0.2); Basophils % (auto) 1.1 % (0.0-2.0); Eosinophils # (auto) 0 10 ^3/uL (0-0.8); Hematocrit 26.2 % (36.0-46.0); Hemoglobin 8.8 g/dL (12.2-16.2); Lymphocytes # (auto) 1.5 10 ^3/uL (0.4-5.4); Lymphocytes % (auto) 9.1 % (10.0-50.0); Mean Corpuscular Hemoglobin 31.8 pg (28.0-32.0); Mean Corpuscular Hgb Conc. 33.5 g/dL (32.0-36.0); Monocytes # (auto) 1.3 10 ^3/uL (0-1.3); Monocytes % (auto) 7.7 % (0.0-12.0); Neutrophils # (auto) 13.9 10 ^3/uL (1.6-8.6); Neutrophils % (auto) 82.1 % (37.0-80.0); Platelet Count (auto) 168 10^3/uL (140-450); Red Blood Cells 2.76 10^6/uL (4.0-5.20); White Blood Cell 16.9 10^3/uL (4.4-10.8)
[2020-02-19 06:20] LABS: Red Cell Distribution Width 24.9 % (11.8-14.3)
[2020-02-19 08:55] VITALS: BP 99/54
[2020-02-19] MEDS: MIDODRINE HCL 10 MG TAB PO SCH ×3 (09:33→18:24)
[2020-02-19] MEDS: PANTOPRAZOLE 40 MG/10 ML VIAL INJ IV SCH ×2 (09:55→22:02)
[2020-02-19] MEDS: FUROSEMIDE 100 MG/10ML VIAL IV SCH (09:55)
[2020-02-19] MEDS: DOXYCYCLINE 100MG/250ML 250 ML IV SCH ×2 (09:55→23:45)
[2020-02-19] MEDS ORDERED: POTASSIUM PHOSPHATE 26.4 MEQ in SODIUM CHL 0.9% 100 ML IV ONE (11:30)
[2020-02-19 13:00] VITALS: BP 106/63
[2020-02-19 16:47] VITALS: BP 101/58
[2020-02-19 21:53] VITALS: BP 100/57
[2020-02-20] MEDS: PIPERACILLIN-TAZOB 3.375GM 100 ML IV SCH ×2 (02:57→08:52)
[2020-02-20 05:33] VITALS: BP 99/59
[2020-02-20 06:03] LABS: Basophils # (auto) 0.2 10 ^3/uL (0-0.2); Basophils % (auto) 1.3 % (0.0-2.0); Eosinophils # (auto) 0 10 ^3/uL (0-0.8); Eosinophils % (auto) 0.1 % (0.0-7.0); Hematocrit 23.8 % (36.0-46.0); Hemoglobin 8.1 g/dL (12.2-16.2); Lymphocytes # (auto) 1.4 10 ^3/uL (0.4-5.4); Lymphocytes % (auto) 10.2 % (10.0-50.0); Mean Corpuscular Hemoglobin 32.4 pg (28.0-32.0); Mean Corpuscular Hgb Conc. 34.1 g/dL (32.0-36.0); Monocytes # (auto) 1.5 10 ^3/uL (0-1.3); Neutrophils # (auto) 10.8 10 ^3/uL (1.6-8.6); Neutrophils % (auto) 77.4 % (37.0-80.0); Platelet Count (auto) 152 10^3/uL (140-450); White Blood Cell 13.9 10^3/uL (4.4-10.8)
[2020-02-20 06:04] LABS: Red Cell Distribution Width 24.9 % (11.8-14.3)
[2020-02-20 06:22] LABS: Albumin 1.7 g/dL (3.4-5.0); Calcium 7.4 mg/dL (8.5-10.1); Potassium 3.4 mmol/L (3.5-5.1)
[2020-02-20 06:25] LABS: BUN/Creatinine Ratio 28.8; Bilirubin, Total 3.4 mg/dL (0.2-1.0); Total Protein 5.2 g/dL (6.4-8.2)
[2020-02-20] MEDS: MIDODRINE HCL 10 MG TAB PO SCH ×2 (07:59→12:43)
[2020-02-20] MEDS ORDERED: POTASSIUM CHL 20 Meq TABLET PO ONE (08:30)
[2020-02-20 09:00] VITALS: BP 100/61
[2020-02-20] MEDS: PANTOPRAZOLE 40 MG/10 ML VIAL INJ IV SCH (09:40)
[2020-02-20] MEDS: DOXYCYCLINE 100MG/250ML 250 ML IV SCH (09:40)
[2020-02-20] MEDS: FUROSEMIDE 100 MG/10ML VIAL IV SCH (09:40)
[2020-02-20 13:00] VITALS: BP 113/76
[2020-02-20 13:02] VITALS: BP 100/61
[2020-03-22] MEDS ORDERED: MULTCAP45 PO ×2 (16:54)
[2020-03-22] MEDS ORDERED: FURO40TA4 PO ×2 (16:54)
[2020-03-22] MEDS ORDERED: FER325T PO ×2 (16:54)
[2020-03-22] MEDS ORDERED: PANT40TA2 PO ×2 (16:54)
[2020-03-22] MEDS ORDERED: RIFA550T PO ×2 (16:54)
[2020-03-22] MEDS ORDERED: ATOR40TA52 PO ×2 (16:54)
[2020-03-26] MEDS ORDERED: MID10T PO ×2 (13:03)
== END 2020-02-20 15:00 | disposition home or self-care (01) | DRG 720 ==
LOC: EDBD 17:36 → EDUNIT# 17:36 → ER 17:36 → OVERFLOW 17:37 → ICU WEST 02-06 10:55 → DOU IN ICU 02-09 08:05 → ICU WEST 02-11 17:29 → WEST WING 02-17 13:57 → TELE-WESTW 02-17 14:22
PROVIDERS: ADMIT Hospitalist; ATTEND Family Medicine
PROC: 02HV33Z Insertion of Infusion Device into Superior Vena Cava, Percutaneous Approach (ICD-10-PCS; 2020-02-04)
PROC: 30233N1 Transfusion of Nonautologous Red Blood Cells into Peripheral Vein, Percutaneous Approach (ICD-10-PCS; 2020-02-04)
PROC: 0W9G3ZZ Drainage of Peritoneal Cavity, Percutaneous Approach (ICD-10-PCS; principal; 2020-02-07)
PROC: 0W9G3ZZ Drainage of Peritoneal Cavity, Percutaneous Approach (ICD-10-PCS; 2020-02-16)
DX: A41.51 Sepsis due to Escherichia coli [E. coli] (principal); K72.00 Acute and subacute hepatic failure without coma; N17.0 Acute kidney failure with tubular necrosis; R65.21 Severe sepsis with septic shock; G93.41 Metabolic encephalopathy; J18.9 Pneumonia, unspecified organism; D68.9 Coagulation defect, unspecified; K92.2 Gastrointestinal hemorrhage, unspecified; E87.1 Hypo-osmolality and hyponatremia; N39.0 Urinary tract infection, site not specified; R18.8 Other ascites; D64.9 Anemia, unspecified; D69.59 Other secondary thrombocytopenia; E83.39 Other disorders of phosphorus metabolism; E83.42 Hypomagnesemia; E87.6 Hypokalemia; E87.70 Fluid overload, unspecified; G40.409 Other generalized epilepsy and epileptic syndromes, not intractable, without status epilepticus; K74.60 Unspecified cirrhosis of liver; K76.0 Fatty (change of) liver, not elsewhere classified; R62.7 Adult failure to thrive; Z79.899 Other long term (current) drug therapy; Z83.3 Family history of diabetes mellitus; Z90.710 Acquired absence of both cervix and uterus; Z91.14 Patient's other noncompliance with medication regimen; E88.09 Other disorders of plasma-protein metabolism, not elsewhere classified; R63.4 Abnormal weight loss; Z68.20 Body mass index [BMI] 20.0-20.9, adult
CPT/HCPCS: 10022; 36415; 36600; 49083; 70450; 71045; 74176; 76700; 76705; 76942; 80048; 80053; 80061; 80307; 80320; 81001; 82040; 82105; 82140; 82150; 82378; 82390; 82570; 82728; 82805; 82962; 83036; 83516; 83540; 83550; 83605; 83690; 83735; 83930; 83935; 84100; 84300; 84478; 84484; 84550; 85007; 85014; 85018; 85025; 85027; 85610; 85730; 86225; 86235; 86704; 86706; 86708; 86803; 86850; 86900; 86901; 86920; 87040; 87081; 87086; 87088; 87186; 87205; 87340; 89051; 93005; 93306; 95819; C9113; G0378; J0696; J1756; J1815; J1956; J2001; J2405; J2543; J3430; J3480; J3490; J7060; J7131; P9047

== ENCOUNTER 2020-02-28 10:55 | Inpatient (IN) | payer BC, MEDICAID ==
[~2020-02-28] VITALS: Ht 165.1 cm; Wt 56.0 kg
[2020-02-28] VITALS (7 sets, daily range): BP systolic 85–109; BP diastolic 56–77
[2020-02-28] MEDS ORDERED: LORazepam 2MG/ML-1ML VIAL ONE (11:07)
[2020-02-28 11:29] LABS: Hematocrit 26.7 % (36.0-46.0); Hemoglobin 8.8 g/dL (12.2-16.2); Mean Corpuscular Hemoglobin 31.7 pg (28.0-32.0); Mean Corpuscular Hgb Conc. 32.9 g/dL (32.0-36.0); Mean Corpuscular Volume 96.3 fL (80.0-100.0); Platelet Count (auto) 363 10^3/uL (140-450); Red Blood Cells 2.77 10^6/uL (4.0-5.20); White Blood Cell 22.8 10^3/uL (4.4-10.8)
[2020-02-28] MEDS ORDERED: LORazepam 2MG/ML-1ML VIAL IV ONE ×2 (11:30)
[2020-02-28 11:31] LABS: Urine Bacteria FEW /hpf (None Seen); Urine Blood Negative /uL (Negative); Urine Hyaline Cast FEW /lpf (0 - 2); Urine Specific Gravity 1.009 (1.001-1.035); Urine WBC 1 /hpf (0 - 5)
[2020-02-28 11:33] LABS: Red Cell Distribution Width 25.4 % (11.8-14.3)
[2020-02-28 11:35] LABS: Basophils % (manual) 0 (0.0-2.0); Blast Cells 0; Myelocytes % 0; Promyelocytes % 0; Reactive Lymphocytes 0
[2020-02-28 11:47] LABS: INR 1.65 (0.9-1.15); Partial Thromboplastin Time 42.9 sec (23.64-32.05)
[2020-02-28 11:49] LABS: Albumin 2.1 g/dL (3.4-5.0); Anion Gap 15 (5-15); Blood Urea Nitrogen 30 mg/dL (7-18); Calcium 7.4 mg/dL (8.5-10.1); Carbon Dioxide 14 mmol/L (21-32); Chloride 109 mmol/L (98-107); Glucose 177 mg/dL (74-106); Sodium 138 mmol/L (136-145)
[2020-02-28 11:51] LABS: Lactic Acid w/Reflex 5.2 mmol/L (0.4-2.0)
[2020-02-28 11:52] LABS: Band Neutrophils % (manual) 3; Eosinophils % (manual) 2 (0-7); Lymphocytes % (manual) 16 (10.0-50.0); Metamyelocytes % 1; Monocytes % (manual) 5 (0-12)
[2020-02-28 11:55] LABS: Alanine Aminotransferase 40 U/L (13-56); Alkaline Phosphatase 147 U/L (45-117); Aspartate Aminotransferase 96 U/L (15-37); BUN/Creatinine Ratio 22.2; Bilirubin, Total 3.9 mg/dL (0.2-1.0); GFR African American 56 mL/min; GFR Non-African American 47 mL/min; Total Protein 7.2 g/dL (6.4-8.2)
[2020-02-28 11:58] LABS: Potassium 2.4 mmol/L (3.5-5.1)
[2020-02-28] MEDS: POTASSIUM CHL 20MEQ/100ML 100 ML IV SCH ×3 (12:25→16:14)
[2020-02-28] MEDS ORDERED: NITROGLYCERIN 0.4 MG SL TAB SL PRN (13:00)
[2020-02-28] MEDS ORDERED: MORPHINE SULF INJ 2 MG/ML SYRINGE 1ML IV PRN (13:00)
[2020-02-28] MEDS ORDERED: LORazepam 2MG/ML-1ML VIAL IV PRN ×2 (13:00→21:45)
[2020-02-28] MEDS: DOXYCYCLINE 100MG/250ML 250 ML IV SCH (13:00)
[2020-02-28] MEDS ORDERED: ONDANSETRON HCL 4 MG/2 ML VIAL IV PRN (13:00)
[2020-02-28 13:20] LABS: Magnesium 1.5 mg/dL (1.6-2.6)
[2020-02-28 13:29] LABS: CRP High Sensitivity 1.17 mg/dL (< 0.3)
[2020-02-28] MEDS ORDERED: ALBUMIN 25% 100 ML IV ONE (16:00)
--- NOTE | 2020-02-28 17:15 | NUR ---
Admit to [facility] admitted to [facility] via gurney on classroom monitor, and portable 02. Patient transfered to bed, connected to unit monitoring and oxygen, [facility]. Patient awake and oriented x3, re-oriented to time, fatigued, follows simple commands, speaks with a soft voice. No S/S of SOB or pain. Patient saturation 100% at 2 LPM oxygen via nasal cannula. See interventions for complete assessment. Bed locked on low position, padded side rails up x2, bed alarms on at all times, call de leon within reach, instructed to call for needed assistance. Patient oriented to Ginette mock RN, unit, room, bed, and unit policies regarding patient care and visiting hours. All questions and concerns addressed, patient verbalized understanding.
--- NOTE | 2020-02-28 17:16 | NUR ---
Per NEWBORN PHOTOGRAPHER consult to Dr Morejon has been called.
--- NOTE | 2020-02-28 17:30 | NUR ---
MRSA swab sent to lab
[2020-02-28] MEDS ORDERED: DOXY100C2 PO (18:20)
[2020-02-28] MEDS ORDERED: RIFA550T PO (18:20)
[2020-02-28] MEDS ORDERED: FURO40TA4 PO (18:20)
[2020-02-28] MEDS ORDERED: POTA1TAB61 PO (18:20)
--- NOTE | 2020-02-28 18:26 | NUR ---
Called next of kin on record Jayla Raymon - sister in law/caregiver regarding patient's home medications. Med rec done per information for Jayla.
[2020-02-28] MEDS: PIPERACILLIN-TAZOB 3.375GM 100 ML IV SCH (18:36)
[2020-02-28] MEDS: LACTULOSE 20Gm/30ML SOLN PO SCH (18:37)
--- NOTE | 2020-02-28 19:15 | NUR ---
Gave report to aKiley DEL RIO.
--- NOTE | 2020-02-28 19:15 | NUR ---
OPENING NOTE RECIEVED REPORT FROM DAY SHIFT RN AND ASSUMED CARE OF PT. PT IS RESTING IN BED. BED IS LOCKED AND IN LOWEST POSITION AND CALL LIGHT WITHIN REACH. EDUCATED PT ON PLAN OF CARE, USE OF CALL LIGHT AND FALL AND SEIZURE PRECAUTIONS. PT IS CONFUSED AND ALTERED AND UNABLE TO PROPERLY VERBALIZE UNDERSTANDING. VITAL SIGNS STABLE WITH NO S/S OF DISTRESS NOTED. 2L NC APPLIED. CAMERA MECHANIC CONNECTED. WILL CONTINUE TO MONITOR AND ASSESS PT.
--- NOTE | 2020-02-28 19:45 | NUR ---
IV insertion IV access obtained, via clean sterile technique by inserting 20 gauge catheter at LEFT AC after 1 attempt. IV secured properly. No trauma to site. Patient tolerated well. Will continue to assess for s/s of infiltration.
--- NOTE | 2020-02-28 20:35 | NUR ---
HOSPITALIST JERI ON UNIT MADE JERI AWARE OF PT LOC. NO NEW ORDERS RECEIVED, CONTINUE WITH CURRENT PLAN OF CARE.
--- NOTE | 2020-02-28 20:54 | NUR ---
NEURO DR ENGLISH AT BEDSIDE TO MONITOR AND ASSESS PT. NEW ORDERS RECEIVED, NOTED IN CHART. MADE MD AWARE OF PT LAB VALUES AND LOC.
[2020-02-28] MEDS: rifAXIMin 550 MG TAB PO SCH (22:00)
[2020-02-28] MEDS ORDERED: ATORVASTATIN 20 MG TAB PO SCH (22:00)
--- NOTE | 2020-02-28 23:15 | NUR ---
DIETARY PT REQUESTING WATER. NO DIET CURRENTLY ORDERED. NO PROCEDURES PENDING THAT PT SHOULD BE NPO FOR. PO PILLS GIVEN WITH APPLESAUCE AND 30 ML OF WATER GIVEN. MD ENGLISH OKAYED ADMINISTRATION OF WATER/APPLESAUCE WITH PILLS, BUT NO FORMAL DIET ORDER IN PLACE YET. WILL FOLLOW UP WITH HOSPITALIST.
[2020-02-29] VITALS (7 sets, daily range): BP systolic 99–103; BP diastolic 58–71
--- NOTE | 2020-02-29 01:00 | NUR ---
DOXYCYCLINE LATE ADMIN ZOSYN IS CURRENTLY RUNNING PER MD ORDER. WILL ADMIN DOXY PER MD ORDER AFTER ZOSYN HAS INFUSED AND NO S/S OF REACTION ARE NOTED. UNABLE TO CALL PHARMACY TO RESCHEDULE ADMINISTRATION.
--- NOTE | 2020-02-29 02:38 | NUR ---
FULL VANESSA CHANGE PT HAS HAD SEVERAL LIQUID BROWN BM DUE TO LACTULOSE ADMIN. FULL VANESSA CHANGE DONE, GOWN CHANGE, AND BATH GIVEN TO PT. JIMMY AND CATHETER CARE DONE.
[2020-02-29] MEDS: DOXYCYCLINE 100MG/250ML 250 ML IV SCH ×2 (03:00→15:04)
--- NOTE | 2020-02-29 05:20 | NUR ---
FAMILY CALL GRISELDA, PTS SISTER IN LAW/ CAREGIVER CALLED. SET UP PASSWORD. UPDATED HER ON PT CONDITION AND PLAN OF CARE. VERBALIZED UNDERSTANDING.
--- NOTE | 2020-02-29 05:30 | NUR ---
AM LABS SENT
--- NOTE | 2020-02-29 05:30 | NUR ---
PT REMOVED RFA 20 G. ELIANE ALVAREZ REINSERTED RFA 22G USING CLEAN STERILE TECHNIQUE. PT TOLERATED WELL.
[2020-02-29] MEDS: LACTULOSE 20Gm/30ML SOLN PO SCH ×5 (06:02→23:30)
[2020-02-29] MEDS: PIPERACILLIN-TAZOB 3.375GM 100 ML IV SCH ×5 (06:02→23:30)
--- NOTE | 2020-02-29 07:10 | NUR ---
AM LABS HAVE NOT RESULTED. CALLED LAB FOR FOLLOW UP. AWAITING CALL BACK.
--- NOTE | 2020-02-29 07:22 | NUR ---
LAB CALLBACK LAB SAID THEY DID NOT RECEIVE BLOOD. ASKED THEM TO COME AND DRAW LABS FROM PT. AWAITING ARRIVAL.
--- NOTE | 2020-02-29 07:30 | NUR ---
OPENING SHIFT NOTE: Received report from NOC RNKailey. Assumed care of patient. Received patient lying in bed, no s/s of distress noted, connected to bedside monitor. Patient is A&Ox3 (self, place, situation) and denies pain. Patient on 2L NC with O2 sats 100%, cartagena draining to gravity with dark hany output. Mittens on bilaterally due to pulling out IV lines. Patient with two patent IVS, Lt FA #20 and Rt FA #22. Bed in lowest position, rails x3 up with seizure precautions in place, and call light within reach. Updated on plan of care. Will continue to monitor.
--- NOTE | 2020-02-29 08:00 | NUR ---
Patient found in loose liquid stool. Patient unable to know when she has to go, states she thinks she is passing gas. Rectal tube placed with out difficulty. Balloon inflated with 35ml of water. Green liquid stool returned upon insertion.
[2020-02-29 08:15] LABS: Basophils # (auto) 0 10 ^3/uL (0-0.2); Eosinophils # (auto) 0 10 ^3/uL (0-0.8); Eosinophils % (auto) 0.2 % (0.0-7.0); Hematocrit 22.5 % (36.0-46.0); Hemoglobin 7.5 g/dL (12.2-16.2); Monocytes # (auto) 0.8 10 ^3/uL (0-1.3)
[2020-02-29 08:17] LABS: Basophils % (auto) 0.2 % (0.0-2.0); Lymphocytes # (auto) 1.9 10 ^3/uL (0.4-5.4); Lymphocytes % (auto) 13.6 % (10.0-50.0); Mean Corpuscular Hemoglobin 31.7 pg (28.0-32.0); Mean Corpuscular Hgb Conc. 33.4 g/dL (32.0-36.0); Mean Corpuscular Volume 94.9 fL (80.0-100.0); Monocytes % (auto) 5.6 % (0.0-12.0); Neutrophils # (auto) 11.3 10 ^3/uL (1.6-8.6); Neutrophils % (auto) 80.4 % (37.0-80.0); Platelet Count (auto) 212 10^3/uL (140-450); Red Blood Cells 2.37 10^6/uL (4.0-5.20)
[2020-02-29 08:18] LABS: Red Cell Distribution Width 24.5 % (11.8-14.3)
[2020-02-29 08:32] LABS: INR 1.92 (0.9-1.15); Partial Thromboplastin Time 48.8 sec (23.64-32.05)
[2020-02-29 08:35] LABS: Cholesterol 98 mg/dL (< 200)
[2020-02-29 08:36] LABS: Albumin 2.1 g/dL (3.4-5.0)
[2020-02-29 08:37] LABS: HDL Cholesterol 34 mg/dL (40-59); LDL Cholesterol 51 mg/dL (< 100); Triglycerides 56 mg/dL (< 150)
[2020-02-29 08:40] LABS: BUN/Creatinine Ratio 27.4; Bilirubin, Total 3.1 mg/dL (0.2-1.0); Total Protein 6.1 g/dL (6.4-8.2)
[2020-02-29 08:44] LABS: Potassium 2.6 mmol/L (3.5-5.1)
--- NOTE | 2020-02-29 08:50 | NUR ---
LAB CRITICAL: Lab call with critical result potassium 2.6. ammunition and explosives handler hospitalist paged for orders.
[2020-02-29] MEDS: PANTOPRAZOLE 40 MG/10 ML VIAL INJ IV SCH (10:53)
[2020-02-29] MEDS: rifAXIMin 550 MG TAB PO SCH ×2 (10:53→23:23)
--- NOTE | 2020-02-29 11:18 | NUR ---
Paged DR Morin regarding critical lab and possible downgrade orders. Addendum: 02/29/20 at 1122 by RYDER STORM RN Received Dr Morin's cell # from Dinorah, ICU Director. No answer, unable to leave message due to full mailbox.
--- NOTE | 2020-02-29 11:24 | NUR ---
explosive technician at bedside.
--- NOTE | 2020-02-29 11:29 | NUR ---
T/C from Dr Morin. Informed MD of potassium level. Orders to be put in. MD to see patient prior to deciding if patient can be downgraded.
[2020-02-29] MEDS ORDERED: POTASSIUM EFFERVESENT TAB 25 MEQ PO ONE (11:30)
[2020-02-29] MEDS ORDERED: POTASSIUM CHL 20 Meq TABLET PO ONE (11:30)
--- NOTE | 2020-02-29 11:45 | NUR ---
Dr Morin at bedside. Patient examined. Orders received to downgrade to tele with ángelater.
--- NOTE | 2020-02-29 12:43 | NUR ---
Report given to Sophy DEL RIO. Patient to room 217A via bed on tele box #29.
--- NOTE | 2020-02-29 13:10 | NUR ---
Received patient from [facility]. Patient awake, oriented x1, on rectal tube, on Soto catheter. Patient is looking for a black purse. Informed the patient her only belongings are her clothes and two rings on her fingers. No black purse. Sitter at bedside. .
--- NOTE | 2020-02-29 15:00 | NUR ---
Patient asking for food. Patient made aware she's on nothing by mouth except medications. Sitter at bedside. Will page the doctor.
--- NOTE | 2020-02-29 15:10 | NUR ---
Patient's [id number] Apmela (P# [phone]) called.
--- NOTE | 2020-02-29 15:15 | NUR ---
Paged Dr. Morin. Waiting for MD to call back.
--- NOTE | 2020-02-29 15:30 | NUR ---
PT eval orders received. Pt's K+ is 2.6. Spoke with pt's RN who states she is still awaiting orders from MD to replace potassium. Pt is not appropriate for mobilization with K+ <3.0 Will attempt again tomorrow.
--- NOTE | 2020-02-29 16:20 | NUR ---
Paged Dr. Morin again. Waiting for MD to call back.
--- NOTE | 2020-02-29 17:05 | NUR ---
Dr. Morin called back. made aware patient's K = 2.6*L and patient asked for food but on NPO. Dr. Morin ordered Regular diet and clarify with [facility] RN Pilar if patient received the Potassium she ordered.
--- NOTE | 2020-02-29 17:08 | NUR ---
Patient received Klor-Con at [facility] as administered by ELIANE Quezada as per EMAR.
--- NOTE | 2020-02-29 19:40 | NUR ---
RECEIVED REPORT FROM DAY RN POC REVIEWED
[2020-02-29] MEDS ORDERED: MAGNESIUM OXIDE 400 MG TAB PO ONE (20:00)
[2020-02-29] MEDS ORDERED: ALBUMIN 5% 250 ML IV ONE (20:15)
--- NOTE | 2020-02-29 20:15 | NUR ---
KIMMIE APPLIED PT PICKING AT IV SITE, REORIENTED PT TO POC
[2020-02-29] MEDS ORDERED: DEXTROSE (50%) 50ML SYRG IV PRN ×2 (21:15)
[2020-02-29] MEDS ORDERED: InsuLIN REG 1unit/0.01ml Soln (100units/ml) SC SCH (22:00)
--- NOTE | 2020-02-29 22:10 | NUR ---
ACCUCHECK 104
--- NOTE | 2020-02-29 22:36 | NUR ---
PT AWOKE RESTLESS AND CONFUSED, SITTER AT BEDSIDE REORIENTED PT TO POC
[2020-02-29] MEDS: ACCU-CHEK COMFORT CURVE STRIP VI SCH (22:45)
[2020-02-29] MEDS: ATORVASTATIN 20 MG TAB PO SCH (23:22)
[2020-02-29] MEDS: SODIUM BICARBONATE 650 MG TAB PO SCH (23:22)
[2020-03-01 02:00] VITALS: BP 110/37
[2020-03-01] MEDS: DOXYCYCLINE 100MG/250ML 250 ML IV SCH ×2 (02:47→15:41)
--- NOTE | 2020-03-01 03:30 | NUR ---
RESTING COMFORTABLE WITH EYES CLOSED RESP EVEN AND UNLABORED
[2020-03-01 05:54] VITALS: BP 109/61
[2020-03-01] MEDS: SODIUM BICARBONATE 650 MG TAB PO SCH ×3 (06:00→18:10)
[2020-03-01] MEDS: LACTULOSE 20Gm/30ML SOLN PO SCH (06:00)
[2020-03-01] MEDS: PIPERACILLIN-TAZOB 3.375GM 100 ML IV SCH ×3 (06:06→18:10)
[2020-03-01] MEDS: ACCU-CHEK COMFORT CURVE STRIP VI SCH ×4 (06:07→22:41)
--- NOTE | 2020-03-01 06:09 | NUR ---
ACCUCHECK 93
[2020-03-01 06:18] LABS: Lymphocytes % (auto) 20.3 % (10.0-50.0); Monocytes # (auto) 0.9 10 ^3/uL (0-1.3)
[2020-03-01 06:21] LABS: Basophils # (auto) 0.1 10 ^3/uL (0-0.2); Basophils % (auto) 0.7 % (0.0-2.0); Eosinophils # (auto) 0.1 10 ^3/uL (0-0.8); Eosinophils % (auto) 1.3 % (0.0-7.0); Hematocrit 19.5 % (36.0-46.0); Mean Corpuscular Hemoglobin 32.4 pg (28.0-32.0); Mean Corpuscular Hgb Conc. 34.3 g/dL (32.0-36.0); Mean Corpuscular Volume 94.4 fL (80.0-100.0); Monocytes % (auto) 8.8 % (0.0-12.0); Neutrophils # (auto) 6.9 10 ^3/uL (1.6-8.6); Neutrophils % (auto) 68.9 % (37.0-80.0); Nucleated Red Blood Cells % 0.3 %; Platelet Count (auto) 184 10^3/uL (140-450); Red Blood Cells 2.07 10^6/uL (4.0-5.20)
[2020-03-01 06:24] LABS: Red Cell Distribution Width 24.6 % (11.8-14.3)
[2020-03-01 06:26] LABS: Hemoglobin 6.7 g/dL (12.2-16.2)
--- NOTE | 2020-03-01 06:27 | NUR ---
HEMATOLOGY CALLED PTS HGB 6.7/HCT 19.5 WILL NOTIFY HOSPITALIST FOR ORDERS
--- NOTE | 2020-03-01 06:43 | NUR ---
HOSPITALIST PAGED REGARDING PTS LOW H/H WAITING FOR ORDERS
--- NOTE | 2020-03-01 06:52 | NUR ---
REPORT GIVEN TO AM NURSE POC REVIEWED
--- NOTE | 2020-03-01 07:08 | NUR ---
RECEIVED ORDERS FROM HOSPITALIST TO REPEAT H/H
[2020-03-01 07:44] LABS: Albumin 1.9 g/dL (3.4-5.0); Calcium 8.2 mg/dL (8.5-10.1); Potassium 3.5 mmol/L (3.5-5.1)
[2020-03-01 07:47] LABS: BUN/Creatinine Ratio 25.7; Bilirubin, Total 3.2 mg/dL (0.2-1.0); Total Protein 5.6 g/dL (6.4-8.2)
--- NOTE | 2020-03-01 08:00 | NUR ---
Patient sitting up in chair, asking where her wheelchair is. Patient said she came to the hospital with her chair from home. Explained to patient she has no wheelchair from home when she came to the hospital. Sitter at bedside.
[2020-03-01 08:03] LABS: Hematocrit 24.1 % (36.0-46.0)
--- NOTE | 2020-03-01 08:18 | NUR ---
Lxaags-rb-nne Pamela called. Pamela made aware patient was looking for her wheelchair. Pamela said the only belongings that patient has when taken to the hospital were her clothes. Patient's black purse, wheelchair are all at home.
--- NOTE | 2020-03-01 08:36 | NUR ---
Dr. Morin made aware of current Hgb = 8.0 L. MD ordered to follow up with GI Consult.
--- NOTE | 2020-03-01 08:41 | NUR ---
Unit SecOlivia Quinonez to quinten for GI Consult.
[2020-03-01 09:00] VITALS: BP 104/70
[2020-03-01] MEDS ORDERED: LORazepam 2MG/ML-1ML VIAL IV ONE (09:30)
--- NOTE | 2020-03-01 09:59 | NUR ---
Qifdxs-vz-wgs Pamela called that patient keeps calling the , that patient insisted of going home. Pamela said that they don't want the patient to go home when she's not well.
--- NOTE | 2020-03-01 10:37 | NUR ---
Spoke with PICC Line ELIANE Roach regarding order for midline.
--- NOTE | 2020-03-01 10:48 | NUR ---
Patient off unit for MRI.
--- NOTE | 2020-03-01 11:10 | NUR ---
Patient back to room from Radiology for MRI. Lavell Wilkinson at bedside for GI Consult.
--- NOTE | 2020-03-01 11:15 | NUR ---
Lavell Wilkinson ordered to wait for the Swallow Evaluation, when patient can eat after the evaluation, have patient on 2 GM Na diet.
[2020-03-01] MEDS: PANTOPRAZOLE 40 MG/10 ML VIAL INJ IV SCH (11:25)
[2020-03-01] MEDS: rifAXIMin 550 MG TAB PO SCH (11:25)
[2020-03-01] MEDS: MAGNESIUM OXIDE 400 MG TAB PO SCH (11:25)
--- NOTE | 2020-03-01 11:42 | NUR ---
Accu check = 109 mg/dl.
--- NOTE | 2020-03-01 11:50 | NUR ---
Dr. Morin at bedside. made aware Lavell Wilkinson has seen the patient for GI Consult, MRI done, Swallow Evaluation pending. Dr. Morin made aware patient was able to swallow crushed pills mixed with apple sauce and had sips of water with no coughing.
--- NOTE | 2020-03-01 11:54 | NUR ---
Paged the Physical Therapy for Swallow Evaluation.
--- NOTE | 2020-03-01 12:48 | NUR ---
Jennifer Perales at bedside for EEG. PICC Line ELIANE Roach came over for midline insertion or two regular IV line insertion.
[2020-03-01 13:00] VITALS: BP 110/70
[2020-03-01] MEDS ORDERED: POTASSIUM EFFERVESENT TAB 25 MEQ GT ONE (13:00)
--- NOTE | 2020-03-01 13:36 | NUR ---
SWALLOW EVALUATED. PATIENT REQUIRED ASSISTANCE TO SIT UP. PATIENT ALOC BUT ABLE TO FOLLOW DIRECTIONS. PATIENT HAS NATURAL TEETH UPPER AND LOWER. PATIENT ABLE TO TOLERATE MECHANICAL SOFT DIET TEXTURE WITH THIN LIQUIDS WITH NO OVERT SIGNS OR SYMPTOMS OF ASPIRATION. NURSING NOTIFIED.
--- NOTE | 2020-03-01 15:30 | NUR ---
Patient is biting, attempting to remove her mittens. Sitter at bedside. Paged Dr. Morin.
--- NOTE | 2020-03-01 15:33 | NUR ---
Dr. Morin called back. made aware patient is biting, attempting to remove her mittens. Patient is anxious. Dr. Morin ordered that too much Ativan is bad for patient's liver, only give the Ativan Inj PRN if patient has seizures. No seizures noted during this shift.
[2020-03-01 17:00] VITALS: BP 96/60
[2020-03-01 17:41] LABS: Urine Bacteria FEW /hpf (None Seen); Urine Blood 2+ /uL (Negative); Urine Budding Yeast MODERATE /hpf (None Seen); Urine Hyaline Cast FEW /lpf (0 - 2); Urine Mucus FEW (None Seen); Urine Specific Gravity 1.029 (1.001-1.035); Urine WBC 32 /hpf (0 - 5)
--- NOTE | 2020-03-01 18:10 | NUR ---
Patient sitting up on bed, asking where her push chair is. Reoriented the patient she came to the hospital with no push chair from home. Patient is confused. Sitter at bedside.
--- NOTE | 2020-03-01 18:10 | NUR ---
Accu check = 104 mg/dl.
--- NOTE | 2020-03-01 18:50 | NUR ---
Patient sitting up on chair, eating dinner. Sitter at bedside.
--- NOTE | 2020-03-01 19:27 | NUR ---
received report from day rn poc reviewed
--- NOTE | 2020-03-01 19:28 | NUR ---
pt back in bed bath and hair washed by sitter, pt appears tired and relaxed at this time, ate dinner sitting up in chair, will continue to monitor
[2020-03-01 22:00] VITALS: BP 100/51
--- NOTE | 2020-03-01 22:00 | NUR ---
BLOOD GLUCOSE 98
--- NOTE | 2020-03-01 22:00 | NUR ---
NOT ABLE TO GIVE PT PO MEDS PT IS STILL EXTREMLY LETHARGIC FROM EARLIER ATIVAN MED GIVEN FOR MRI EXAM, PT IS AROUSABLE UPON VERBAL COMMAND
--- NOTE | 2020-03-01 23:30 | NUR ---
PT AWOKE , ALERT TIMES 3 RESP EVEN AND UNLABORED, PT TOOK ALL MEDS NO S/S OF ASPIRATION, REORIENTED PT TO POC, SITTER AT BEDSIDE FOR PTS SAFETY, NO MITTENS ON PT AT THIS TIME
--- NOTE | 2020-03-01 23:43 | NUR ---
RESTING WITH EYES CLOSED RESP EVEN AND UNLABORED. AROUSABLE
[2020-03-02] VITALS (10 sets, daily range): BP systolic 89–104; BP diastolic 52–64
[2020-03-02] MEDS: LACTULOSE 20Gm/30ML SOLN PO SCH ×3 (01:32→23:17)
[2020-03-02] MEDS: SODIUM BICARBONATE 650 MG TAB PO SCH ×5 (01:32→23:17)
[2020-03-02] MEDS: levETIRAcetam 500 MG TAB PO SCH ×3 (01:33→23:17)
[2020-03-02] MEDS: ATORVASTATIN 20 MG TAB PO SCH ×2 (01:33→23:18)
[2020-03-02] MEDS: PIPERACILLIN-TAZOB 3.375GM 100 ML IV SCH ×5 (01:35→23:19)
[2020-03-02] MEDS: rifAXIMin 550 MG TAB PO SCH ×3 (01:35→23:18)
[2020-03-02] MEDS: DOXYCYCLINE 100MG/250ML 250 ML IV SCH ×2 (01:36→15:46)
[2020-03-02] MEDS: ACCU-CHEK COMFORT CURVE STRIP VI SCH ×4 (06:16→23:19)
--- NOTE | 2020-03-02 06:35 | NUR ---
BLOOD GLUCOSE 100, PT MORE ALERT THIS MORNING, NO S/S OF AGITATION
--- NOTE | 2020-03-02 06:44 | NUR ---
REPORT GIVEN TO AM NURSE POC REVIEWED
[2020-03-02 07:21] LABS: Basophils # (auto) 0 10 ^3/uL (0-0.2); Basophils % (auto) 0.5 % (0.0-2.0); Eosinophils # (auto) 0.2 10 ^3/uL (0-0.8); Lymphocytes % (auto) 21.5 % (10.0-50.0); Mean Corpuscular Hemoglobin 32.3 pg (28.0-32.0); Mean Corpuscular Hgb Conc. 34.7 g/dL (32.0-36.0); Mean Corpuscular Volume 93.3 fL (80.0-100.0); Monocytes # (auto) 0.8 10 ^3/uL (0-1.3); Monocytes % (auto) 8.2 % (0.0-12.0); Neutrophils # (auto) 6.4 10 ^3/uL (1.6-8.6); Neutrophils % (auto) 67.8 % (37.0-80.0); Nucleated Red Blood Cells % 0.1 %; Platelet Count (auto) 161 10^3/uL (140-450); Red Blood Cells 2.04 10^6/uL (4.0-5.20); White Blood Cell 9.4 10^3/uL (4.4-10.8)
--- NOTE | 2020-03-02 07:30 | NUR ---
Opening Shift Note Assumed care of patient, awake and alert/oriented x4. No S/S of distress/SOB or pain. Instructed on POC and to call for assist PRN, will continue to monitor for changes Q1hr and PRN. Bed in low and locked position, rails up x2, no-slip socks on. Sitter at bedside.
[2020-03-02 07:33] LABS: BUN/Creatinine Ratio 21.6; Calcium 8.1 mg/dL (8.5-10.1); Potassium 3.1 mmol/L (3.5-5.1)
[2020-03-02 07:38] LABS: Hemoglobin 6.6 g/dL (12.2-16.2); Red Cell Distribution Width 24.6 % (11.8-14.3)
--- NOTE | 2020-03-02 07:38 | NUR ---
CRITICAL HEMOGLOBIN 6.6, SPOKE TO LISSETTE IN LAB, PAGE TO ON-CALL HOSPITALIST FOR ORDERS, AWAITING CALL BACK.
--- NOTE | 2020-03-02 07:53 | NUR ---
HOSPITALIST CALL BACK NEW ORDERS ADDED FOR REDRAW IN 4 HOURS.
--- NOTE | 2020-03-02 09:30 | NUR ---
RECTAL TUBE DISCONTINUED PATIENT STATED SHE WISHES FOR THE TUBE TO BE REMOVED, INFORMED ON THE REASON FOR TUBE AND DETERMINED THAT PATIENT IS ABLE TO CALL FOR A BEDPAN OR ASK FOR ASSIST TO BEDSIDE COMMODE. RECTAL TUBE REMOVED BY REMOVING ALL WATER FROM BALLOON, APPROX 35ML. TOTAL IN COLLECTION BAG IS 500ML OF LOOSE STOOL WITH PARTIALLY FORMED PARTICLES. PATIENT TOLERATED IT WELL.
[2020-03-02] MEDS: FUROSEMIDE 20 MG TAB PO SCH (10:00)
--- NOTE | 2020-03-02 10:20 | NUR ---
PHYSICAL THERAPY AT BEDSIDE PATIENT MINIMUM ASSIST, AMBULATED WITH FRONT WHEEL WALKER APPROX 80FEET, TOLERATED WELL WITH STEADY GAIT.
[2020-03-02] MEDS ORDERED: POTASSIUM EFFERVESENT TAB 25 MEQ PO ONE (11:00)
[2020-03-02] MEDS: MAGNESIUM OXIDE 400 MG TAB PO SCH (11:23)
[2020-03-02] MEDS: PANTOPRAZOLE 40 MG/10 ML VIAL INJ IV SCH (11:24)
[2020-03-02 11:41] LABS: Hemoglobin 6.6 g/dL (12.2-16.2)
--- NOTE | 2020-03-02 12:09 | NUR ---
BLOOD TRANSFUSION INITIATED BLOOD CONSENT SIGNED BY PATIENT AND PHYSICIAN, SEE [facility]ATION [facility].
--- NOTE | 2020-03-02 12:15 | NUR ---
DR BARNARD AT BEDSIDE NEW ORDERS ADDED, WILL CARRY OUT.
--- NOTE | 2020-03-02 12:41 | NUR ---
DR LOTT AT BEDSIDE NEW ORDERS ADDED, PLANNING EGD ON THURSDAY IF PATIENT INR AND HGB IMPROVES. DISCUSSED PLAN WITH PATIENT AND SHE VERBALIZED UNDERSTANDING.
[2020-03-02] MEDS ORDERED: PHYTONADIONE (VIT K)10 MG/ML 1ML VIAL SUBCUT ONE (12:45)
--- NOTE | 2020-03-02 15:06 | NUR ---
HELD LASIX NOTIFIED DR DIXON OF HELD LASIX AT 1000 DUE TO DECREASED BLOOD PRESSURE 89/59, HOWEVER ALSO NOTIFIED THAT WE ARE CURRENTLY ADMINISTERING BLOOD, STATED ONE TIME ORDER OF LASIX 20MG IV. WILL CARRY OUT.
[2020-03-02] MEDS ORDERED: FUROSEMIDE 20 MG/2 ML VIAL IV ONE (15:15)
--- NOTE | 2020-03-02 15:47 | NUR ---
NUTRITION ASSESSMENT NOTES Please refer to link notes of nutrition screen form filed under the intervention section of the plan of care for further details. Est. Energy Needs: 6873-2013 kcal (25-30 kcal/kg BW). Est. Protein Needs: 55-66 gms/day (1.0-1.2 gms/kg BW). Will continue to monitor pertinent labs and reassess nutrient need prn Addendum: 03/02/20 at [address] Amended: Links added.
--- NOTE | 2020-03-02 19:30 | NUR ---
Opening Shift Note Assumed care of patient, awake and alert/oriented x 4. No S/S of distress/SOB or pain. Instructed on POC and to call for assist PRN, will continue to monitor for changes Q1hr and PRN. Bed in lowest locked position, side rails up x2, call light within reach. Addendum: 03/03/20 at 0359 by LEONIDAS DRAKE RN RN ADDITION: Seizure precautions in place at time of original note.
--- NOTE | 2020-03-02 22:10 | NUR ---
Dr. Morejon at bedside, POC discussed.
[2020-03-02] MEDS ORDERED: LORazepam 2MG/ML-1ML VIAL IV PRN (22:45)
--- NOTE | 2020-03-02 23:10 | NUR ---
Blood sugar 97, no coverage ordered, will continue to monitor.
[2020-03-03] MEDS: DOXYCYCLINE 100MG/250ML 250 ML IV SCH ×2 (02:02→13:00)
[2020-03-03 05:08] VITALS: BP 98/57
--- NOTE | 2020-03-03 06:32 | NUR ---
Closing Note Patient lying in bed, awake and alert. No s/s of distress. Will endorse care to dayshift RN. Addendum: 03/03/20 at 0644 by LEONIDAS DRAKE RN RN ADDITION: Blood sugar 86, no coverage ordered, will continue to monitor.
[2020-03-03] MEDS: PIPERACILLIN-TAZOB 3.375GM 100 ML IV SCH ×3 (06:33→17:51)
[2020-03-03] MEDS: ACCU-CHEK COMFORT CURVE STRIP VI SCH (06:34)
[2020-03-03] MEDS: SODIUM BICARBONATE 650 MG TAB PO SCH ×4 (06:34→22:40)
--- NOTE | 2020-03-03 08:00 | NUR ---
Opening Shift Note Assumed care of patient, awake, alert and oriented X. No S/S of distress/SOB or pain. Tele# 24, sinus rhythm @ 92 bpm. IV X2, right antecubital, 22 gauge, and right upper arm, 20 gauge, both patent and saline locked. Urethral Soto catheter draining clear, brown urine to gravity. Instructed on POC and to call for assist PRN, verbalized understanding. Bed locked, in lowest position, call light within reach, seizure and fall precautions in place, will continue to monitor for changes Q1hr and PRN.
[2020-03-03] MEDS: PANTOPRAZOLE 40 MG/10 ML VIAL INJ IV SCH (09:39)
[2020-03-03] MEDS: levETIRAcetam 500 MG TAB PO SCH ×2 (09:39→22:40)
[2020-03-03] MEDS: LACTULOSE 20Gm/30ML SOLN PO SCH ×2 (09:39→22:39)
[2020-03-03] MEDS: rifAXIMin 550 MG TAB PO SCH ×2 (09:40→22:40)
[2020-03-03] MEDS: FUROSEMIDE 20 MG TAB PO SCH (09:40)
[2020-03-03] MEDS ORDERED: PHYTONADIONE (VIT K)10 MG/ML 1ML VIAL SUBCUT ONE (10:00)
[2020-03-03 10:31] VITALS: BP 92/55
--- NOTE | 2020-03-03 10:35 | NUR ---
GI Dr Sorenson at bedside for GI follow up. New orders received and followed through. Patient updated on plan of care, verbalized understanding.
--- NOTE | 2020-03-03 11:22 | NUR ---
ROUNDS Dr Lavell Addison at bedside for rounds, new orders received and followed through. Patient updated on plan of care, verbalized understanding.
[2020-03-03 11:45] LABS: Basophils # (auto) 0.1 10 ^3/uL (0-0.2); Basophils % (auto) 0.6 % (0.0-2.0); Eosinophils # (auto) 0.2 10 ^3/uL (0-0.8); Eosinophils % (auto) 2.1 % (0.0-7.0); Monocytes # (auto) 0.9 10 ^3/uL (0-1.3)
[2020-03-03 11:46] LABS: Hematocrit 23.5 % (36.0-46.0); Hemoglobin 8.2 g/dL (12.2-16.2); Lymphocytes # (auto) 1.7 10 ^3/uL (0.4-5.4); Lymphocytes % (auto) 15.7 % (10.0-50.0); Mean Corpuscular Hemoglobin 32.3 pg (28.0-32.0); Mean Corpuscular Hgb Conc. 34.9 g/dL (32.0-36.0); Mean Corpuscular Volume 92.6 fL (80.0-100.0); Monocytes % (auto) 7.7 % (0.0-12.0); Neutrophils # (auto) 8.2 10 ^3/uL (1.6-8.6); Neutrophils % (auto) 73.9 % (37.0-80.0); Nucleated Red Blood Cells % 0.4 %; Platelet Count (auto) 149 10^3/uL (140-450); Red Blood Cells 2.54 10^6/uL (4.0-5.20); White Blood Cell 11.1 10^3/uL (4.4-10.8)
[2020-03-03 11:55] LABS: Red Cell Distribution Width 22.5 % (11.8-14.3)
[2020-03-03 12:02] LABS: Albumin 1.7 g/dL (3.4-5.0); Calcium 7.5 mg/dL (8.5-10.1)
[2020-03-03 12:07] LABS: BUN/Creatinine Ratio 20.3; Bilirubin, Total 3.3 mg/dL (0.2-1.0); Total Protein 5.7 g/dL (6.4-8.2)
[2020-03-03 12:09] LABS: Potassium 2.8 mmol/L (3.5-5.1)
--- NOTE | 2020-03-03 12:33 | NUR ---
K+ K+ 2.6, Dr Lavell Addison notified, verbalized understanding, new orders received for KCL 60 meq P.O. X1. Order placed and followed through.
[2020-03-03] MEDS ORDERED: POTASSIUM CHL 20 Meq TABLET PO ONE (12:45)
[2020-03-03 13:00] VITALS: BP_SYST 106; BP_SYST 88; BP_DIAS 60
--- NOTE | 2020-03-03 13:28 | NUR ---
B/P 88/60 Dr Sorenson, GI, notified, verbalized understanding. New order for Albumin received and followed through. Patient updated on plan of care, verbalized understanding.
[2020-03-03] MEDS: ALBUMIN 25% 100 ML IV SCH ×2 (15:45→17:06)
[2020-03-03 17:00] VITALS: BP 95/60
--- NOTE | 2020-03-03 19:31 | NUR ---
Care endorsed to ELIANE Tsang, night nurse.
--- NOTE | 2020-03-03 19:31 | NUR ---
Opening Shift Note Assumed care of patient, awake and alert/oriented x 4. No S/S of distress/SOB or pain. Seizure precautions in place. Instructed on POC and to call for assist PRN, will continue to monitor for changes Q1hr and PRN. Bed in lowest locked position, side rails up x2, call light within reach.
[2020-03-03 22:00] VITALS: BP 93/55
[2020-03-03] MEDS: ATORVASTATIN 20 MG TAB PO SCH (22:40)
--- NOTE | 2020-03-03 22:42 | NUR ---
2200 MEDICATIONS MEDICATIONS PASSED FOR PRIMARY RN ALL MEDS GIVEN PER MD ORDER ALL RIGHTS OF MEDICATION ADMINISTRATION VERIFIED.
[2020-03-04] MEDS: PIPERACILLIN-TAZOB 3.375GM 100 ML IV SCH ×5 (00:15→23:50)
[2020-03-04] MEDS: DOXYCYCLINE 100MG/250ML 250 ML IV SCH ×2 (01:50→15:52)
[2020-03-04 05:56] VITALS: BP 96/62
[2020-03-04] MEDS: SODIUM BICARBONATE 650 MG TAB PO SCH ×4 (06:05→23:17)
[2020-03-04 07:06] LABS: Basophils # (auto) 0.1 10 ^3/uL (0-0.2); Eosinophils # (auto) 0.2 10 ^3/uL (0-0.8); Lymphocytes # (auto) 1.8 10 ^3/uL (0.4-5.4); Nucleated Red Blood Cells % 0.2 %
[2020-03-04 07:10] LABS: Basophils % (auto) 0.7 % (0.0-2.0); Eosinophils % (auto) 2.3 % (0.0-7.0); Hematocrit 20.2 % (36.0-46.0); Hemoglobin 7.2 g/dL (12.2-16.2); Lymphocytes % (auto) 21.9 % (10.0-50.0); Mean Corpuscular Hemoglobin 32.2 pg (28.0-32.0); Mean Corpuscular Hgb Conc. 35.6 g/dL (32.0-36.0); Mean Corpuscular Volume 90.3 fL (80.0-100.0); Monocytes # (auto) 0.8 10 ^3/uL (0-1.3); Monocytes % (auto) 9.4 % (0.0-12.0); Neutrophils # (auto) 5.3 10 ^3/uL (1.6-8.6); Neutrophils % (auto) 65.7 % (37.0-80.0); Platelet Count (auto) 126 10^3/uL (140-450); Red Blood Cells 2.23 10^6/uL (4.0-5.20); White Blood Cell 8.1 10^3/uL (4.4-10.8)
[2020-03-04 07:21] LABS: INR 2.09 (0.9-1.15); Red Cell Distribution Width 21.9 % (11.8-14.3)
[2020-03-04 07:31] LABS: Albumin 2.3 g/dL (3.4-5.0); BUN/Creatinine Ratio 23.1; Calcium 7.3 mg/dL (8.5-10.1); Potassium 3.1 mmol/L (3.5-5.1)
[2020-03-04 07:33] LABS: Total Protein 5.2 g/dL (6.4-8.2)
--- NOTE | 2020-03-04 07:37 | NUR ---
Closing Note Patient lying in bed, eyes closed, respirations even and unlabored, appears asleep. No s/s of distress. Care endorsed to dayshisherley Monte RN.
--- NOTE | 2020-03-04 08:00 | NUR ---
Opening Shift Note Assumed care of patient, awake, alert and oriented X4. No S/S of distress/SOB or pain. Tele# 24, sinus rhythm @ 89 bpm. IV X2, right antecubital, 22 gauge, and right upper arm, 20 gauge, both patent and saline locked. Urethral Soto catheter draining clear, yellow urine to gravity. Instructed on POC and to call for assist PRN, verbalized understanding. Bed locked, in lowest position, call light within reach, will continue to monitor for changes Q1hr and PRN.
[2020-03-04] MEDS ORDERED: POTASSIUM CHL 20 Meq TABLET PO ONE (09:00)
[2020-03-04 09:28] VITALS: BP 96/60
[2020-03-04] MEDS ORDERED: PHYTONADIONE (VIT K)10 MG/ML 1ML VIAL SUBCUT ONE (10:00)
[2020-03-04] MEDS: FUROSEMIDE 20 MG TAB PO SCH (10:00)
[2020-03-04] MEDS: rifAXIMin 550 MG TAB PO SCH ×2 (10:31→23:17)
[2020-03-04] MEDS: PANTOPRAZOLE 40 MG/10 ML VIAL INJ IV SCH (10:31)
[2020-03-04] MEDS: LACTULOSE 20Gm/30ML SOLN PO SCH ×2 (10:31→23:17)
[2020-03-04] MEDS: levETIRAcetam 500 MG TAB PO SCH ×2 (10:31→23:18)
--- NOTE | 2020-03-04 10:35 | NUR ---
ROUNDS Dr Lavell Addison at bedside for rounds, plan of care discussed with patient, verbalized understanding.
--- NOTE | 2020-03-04 12:20 | NUR ---
GI Dr Sorenson at bedside for GI follow up. New orders received and followed through. Patient updated on plan of care, verbalized understanding.
[2020-03-04 12:54] VITALS: BP 98/62
--- NOTE | 2020-03-04 14:00 | NUR ---
PT DECLINED P.T. TODAY.
[2020-03-04 17:51] VITALS: BP 102/63
--- NOTE | 2020-03-04 19:13 | NUR ---
Care endorsed to ELIANE Tsang, night nurse.
--- NOTE | 2020-03-04 19:13 | NUR ---
Opening Shift Note Assumed care of patient, awake and alert X 4. No S/S of distress/SOB or pain. Bed in lowest locked position, side rails up x2, call light within reach. Instructed on POC and to call for assist PRN, will continue to monitor for changes Q1hr and PRN.
[2020-03-04 22:00] VITALS: BP 101/68
[2020-03-04] MEDS: ATORVASTATIN 20 MG TAB PO SCH (23:17)
[2020-03-05] VITALS (9 sets, daily range): BP systolic 94–103; BP diastolic 58–72
[2020-03-05] MEDS: DOXYCYCLINE 100MG/250ML 250 ML IV SCH ×2 (01:40→15:31)
[2020-03-05 05:36] LABS: Basophils # (auto) 0.1 10 ^3/uL (0-0.2); Hematocrit 20.8 % (36.0-46.0); Hemoglobin 7.2 g/dL (12.2-16.2); Lymphocytes # (auto) 1.1 10 ^3/uL (0.4-5.4); Monocytes # (auto) 0.9 10 ^3/uL (0-1.3); Neutrophils # (auto) 7.6 10 ^3/uL (1.6-8.6); Red Blood Cells 2.25 10^6/uL (4.0-5.20); White Blood Cell 9.9 10^3/uL (4.4-10.8)
[2020-03-05 05:42] LABS: Basophils % (auto) 0.7 % (0.0-2.0); Eosinophils # (auto) 0.2 10 ^3/uL (0-0.8); Eosinophils % (auto) 2.4 % (0.0-7.0); Lymphocytes % (auto) 11.4 % (10.0-50.0); Mean Corpuscular Hemoglobin 32.1 pg (28.0-32.0); Mean Corpuscular Hgb Conc. 34.7 g/dL (32.0-36.0); Mean Corpuscular Volume 92.3 fL (80.0-100.0); Neutrophils % (auto) 76.5 % (37.0-80.0); Platelet Count (auto) 111 10^3/uL (140-450)
[2020-03-05 05:44] LABS: Red Cell Distribution Width 21.9 % (11.8-14.3)
[2020-03-05 05:58] LABS: Albumin 2.1 g/dL (3.4-5.0); BUN/Creatinine Ratio 18.3; Bilirubin, Total 2.4 mg/dL (0.2-1.0); Calcium 7.2 mg/dL (8.5-10.1); Total Protein 5.5 g/dL (6.4-8.2)
[2020-03-05] MEDS: SODIUM BICARBONATE 650 MG TAB PO SCH ×2 (06:34→12:34)
[2020-03-05] MEDS: PIPERACILLIN-TAZOB 3.375GM 100 ML IV SCH ×2 (06:34→12:33)
--- NOTE | 2020-03-05 07:30 | NUR ---
Closing Note Patient lying in bed, awake and alert, no s/s of distress. Bed in lowest locked position, side rails up x2, call light within reach. Seizure precautions maintained throughout shift. Care endorsed to dayshift RN.
[2020-03-05 07:35] LABS: INR 2.1 (0.9-1.15)
--- NOTE | 2020-03-05 07:39 | NUR ---
Opening Note Assumed pt care from NOC RN. Pt is a/ox4 with no s/s of distress or SOB. Pt is currently sitting upright in bed with no complaints at this time. Discussed POC with pt; scheduled EGD today; pt verbalized understanding. Pt currently has cartagena which is draining to gravity and free of kinks. Pt has been NPO since 0000 for scheduled procedure. Safety measures maintained with call light within reach, bed in lowest position and side rails up. Will continue to monitor.
[2020-03-05] MEDS ORDERED: SODIUM CHLORIDE LOCK 10 ML ONE (09:15)
[2020-03-05] MEDS ORDERED: NALOXONE HCL 0.4 MG/ML VIAL ONE (09:15)
[2020-03-05] MEDS ORDERED: FLUMAZENIL 0.1 MG/ML INJ 10ML MDV IV ONE (09:15)
[2020-03-05] MEDS ORDERED: LIDOCAINE VISCOUS 2% 15ML UD ONE (09:15)
[2020-03-05] MEDS ORDERED: diphenhdrAMINE HCL 50 MG/1 ML VL ONE (09:16)
--- NOTE | 2020-03-05 09:54 | NUR ---
Transferred patient to OR, patient alert and oriented x4, no signs of distress noted. Given report to neuropsychiatrist, made aware of Blood Products running at 100ml/hr. All questions answered.
--- NOTE | 2020-03-05 10:13 | NUR ---
PT Patient was sent to OR for a procedure as per ELIANE Kramer. Addendum: 03/05/20 at 1013 by MARY ANN PTT Amended: Links added.
[2020-03-05] MEDS: MIDAZOLAM HCL 5 MG/ML-1ML VIAL ONE ×2 (11:17→11:21)
[2020-03-05] MEDS: fentaNYL CITRATE 100 MCG/2 ML VL ONE ×2 (11:17→11:21)
--- NOTE | 2020-03-05 12:05 | NUR ---
Pt Arrived Back on Unit Pt back on unit from OR. Pt is a/ox4 with no s/s of distress or SOB. Pt placed on 2L NC. Safety measures maintained with call light within reach, bed in lowest position and side rails up. Bed alarm on and pt instructed to call when need assistance. Pt verbalized understanding.
[2020-03-05] MEDS: LACTULOSE 20Gm/30ML SOLN PO SCH (12:33)
[2020-03-05] MEDS: PANTOPRAZOLE 40 MG/10 ML VIAL INJ IV SCH (12:33)
[2020-03-05] MEDS: levETIRAcetam 500 MG TAB PO SCH (12:34)
[2020-03-05] MEDS: rifAXIMin 550 MG TAB PO SCH (12:34)
[2020-03-05] MEDS: FUROSEMIDE 20 MG TAB PO SCH (12:34)
--- NOTE | 2020-03-05 12:43 | NUR ---
Transfusion Complete Transfusion was completed down in OR.
--- NOTE | 2020-03-05 13:58 | NUR ---
Dr. Morin at bedside. to see patient, discussed possible DC pending most recent Neuro note. No new orders, will continue to monitor.
[2020-03-05] MEDS ORDERED: POTASSIUM CHL 20 Meq TABLET PO SCH (15:30)
--- NOTE | 2020-03-05 15:48 | NUR ---
Soto Catheter Removed Pt instructed to call if need assistance in voiding. Will continue to monitor voiding needs. Addendum: 03/05/20 at 1722 by YONG ELAINE RN RN Pt voided without difficulty.
--- NOTE | 2020-03-05 16:27 | NUR ---
IVs and Tele 29 Removed IVS to pt's R FA and R Upper arm d/c'ed. Catheters were removed fully intact. Sites are asymptomatic. Pressure was applied to each site with gauze and then wrapped in coban. Pt instructed to keep dressing on for 30 minutes; pt verbalized understanding. Tele 29 removed and sent back to ICU. Tele staff made aware.
--- NOTE | 2020-03-05 17:20 | NUR ---
Pt D/C'ed Off Unit Pt d/c'ed off unit via wheelchair. Pt is a/ox4 with no s/s of distress or SOB. Education, d/c information, prescriptions were all given to pt. Pt aware of upcoming appointments. IVs and tele box was removed prior to d/c. All questions were answered.
[2020-03-05] MEDS ORDERED: DOXYCYCLINE 100 MG TAB/CAP PO SCH (22:00)
== END 2020-03-05 17:20 | disposition home or self-care (01) | DRG 871 ==
LOC: EDUNIT# 10:55 → ER 10:55 → EDBD 10:55 → OVERFLOW 10:56 → DOU IN ICU 17:15 → TELE-CENTR 02-29 12:52
PROVIDERS: ADMIT Nurse Practitioner Acute Care; ATTEND Internal Medicine Nephrology
PROC: 0W9G3ZZ Drainage of Peritoneal Cavity, Percutaneous Approach (ICD-10-PCS; 2020-02-28)
PROC: 30233N1 Transfusion of Nonautologous Red Blood Cells into Peripheral Vein, Percutaneous Approach (ICD-10-PCS; 2020-03-02)
PROC: 30233K1 Transfusion of Nonautologous Frozen Plasma into Peripheral Vein, Percutaneous Approach (ICD-10-PCS; 2020-03-05)
PROC: 0DJ08ZZ Inspection of Upper Intestinal Tract, Via Natural or Artificial Opening Endoscopic (ICD-10-PCS; principal; 2020-03-05 11:14)
DX: A41.9 Sepsis, unspecified organism (principal); G93.41 Metabolic encephalopathy; N17.0 Acute kidney failure with tubular necrosis; I63.9 Cerebral infarction, unspecified; D62 Acute posthemorrhagic anemia; E44.0 Moderate protein-calorie malnutrition; K76.6 Portal hypertension; K29.70 Gastritis, unspecified, without bleeding; Z68.20 Body mass index [BMI] 20.0-20.9, adult; K31.89 Other diseases of stomach and duodenum; D69.59 Other secondary thrombocytopenia; E83.42 Hypomagnesemia; E87.6 Hypokalemia; G40.909 Epilepsy, unspecified, not intractable, without status epilepticus; K70.31 Alcoholic cirrhosis of liver with ascites; K72.90 Hepatic failure, unspecified without coma; N18.3 Chronic kidney disease, stage 3 (moderate); D63.8 Anemia in other chronic diseases classified elsewhere; R62.7 Adult failure to thrive; Z83.3 Family history of diabetes mellitus; Z79.899 Other long term (current) drug therapy; Z90.710 Acquired absence of both cervix and uterus
CPT/HCPCS: 10022; 36415; 70450; 70551; 71045; 76942; 80048; 80053; 80061; 81001; 81025; 81241; 82140; 82550; 82962; 83605; 83735; 84132; 84484; 85007; 85014; 85018; 85025; 85027; 85301; 85302; 85303; 85305; 85306; 85610; 85613; 85670; 85705; 85730; 85732; 86141; 86147; 86850; 86900; 86901; 86920; 87040; 87081; 87086; 87205; 92610; 93886; 97116; 97163; 97530; 99291; C9113; G0378; J2250; J2543; J3430; J3480; J3490; J7060; P9047

== ENCOUNTER 2020-03-07 23:23 | Emergency (ER) | payer BC ==
[~2020-03-07] VITALS: Ht 154.9 cm; Wt 54.9 kg
[~2020-03-07 23:23] MED LIST changes: +FURO40TA4 PO; -IBUP600T27 PO; -IBUPROFEN PO; +POTA1TAB61 PO; +RIFA550T PO
[2020-03-07 23:55] VITALS: BP 100/62
[2020-03-08 00:15] LABS: Eosinophils # (auto) 0.4 10 ^3/uL (0-0.8); Eosinophils % (auto) 1.9 % (0.0-7.0)
[2020-03-08 00:16] LABS: Basophils # (auto) 0.2 10 ^3/uL (0-0.2); Basophils % (auto) 0.9 % (0.0-2.0); Hematocrit 22.2 % (36.0-46.0); Hemoglobin 7.4 g/dL (12.2-16.2); Lymphocytes # (auto) 2.1 10 ^3/uL (0.4-5.4); Lymphocytes % (auto) 9.5 % (10.0-50.0); Mean Corpuscular Hemoglobin 31.3 pg (28.0-32.0); Mean Corpuscular Hgb Conc. 33.6 g/dL (32.0-36.0); Mean Corpuscular Volume 93.2 fL (80.0-100.0); Monocytes # (auto) 1.3 10 ^3/uL (0-1.3); Monocytes % (auto) 5.7 % (0.0-12.0); Neutrophils # (auto) 18.6 10 ^3/uL (1.6-8.6); Platelet Count (auto) 114 10^3/uL (140-450); Red Blood Cells 2.38 10^6/uL (4.0-5.20); White Blood Cell 22.7 10^3/uL (4.4-10.8)
[2020-03-08 00:18] LABS: Red Cell Distribution Width 22.7 % (11.8-14.3)
[2020-03-08 00:32] LABS: Albumin 2.3 g/dL (3.4-5.0); BUN/Creatinine Ratio 15.4; Calcium 7.5 mg/dL (8.5-10.1); Potassium 3.3 mmol/L (3.5-5.1)
[2020-03-08 00:40] LABS: Total Protein 6.1 g/dL (6.4-8.2)
[2020-03-08] MEDS ORDERED: MORPHINE SULF INJ 2 MG/ML SYRINGE 1ML IV PRN (02:45)
[2020-03-08] MEDS ORDERED: NITROGLYCERIN 0.4 MG SL TAB SL PRN (02:45)
== END 2020-03-08 03:17 | disposition left against medical advice (07) ==
LOC: ER 23:25 → OVERFLOW 23:26 → UNDOADMIN 23:26 → ER 03-08 03:17
DX: K85.90 Acute pancreatitis without necrosis or infection, unspecified (principal); K83.1 Obstruction of bile duct; N17.9 Acute kidney failure, unspecified; Z79.1 Long term (current) use of non-steroidal anti-inflammatories (NSAID); Z79.899 Other long term (current) drug therapy; Z90.710 Acquired absence of both cervix and uterus
CPT/HCPCS: 36415; 74176; 80053; 82150; 83690; 85025

== ENCOUNTER 2020-03-22 11:28 | Inpatient (IN) | payer BC, MEDICAID ==
[~2020-03-22] VITALS: Ht 154.9 cm; Wt 70.5 kg
[2020-03-22 12:26] LABS: Basophils # (auto) 0.2 10 ^3/uL (0-0.2); Eosinophils # (auto) 0.1 10 ^3/uL (0-0.8); Hemoglobin 7.7 g/dL (12.2-16.2); Mean Corpuscular Hemoglobin 30.9 pg (28.0-32.0); Monocytes # (auto) 1.5 10 ^3/uL (0-1.3)
[2020-03-22 12:27] LABS: Basophils % (auto) 1.1 % (0.0-2.0); Eosinophils % (auto) 0.4 % (0.0-7.0); Hematocrit 22.7 % (36.0-46.0); Lymphocytes # (auto) 1.8 10 ^3/uL (0.4-5.4); Lymphocytes % (auto) 13.2 % (10.0-50.0); Mean Corpuscular Hgb Conc. 33.9 g/dL (32.0-36.0); Mean Corpuscular Volume 91.1 fL (80.0-100.0); Monocytes % (auto) 10.5 % (0.0-12.0); Neutrophils # (auto) 10.4 10 ^3/uL (1.6-8.6); Neutrophils % (auto) 74.8 % (37.0-80.0); Platelet Count (auto) 181 10^3/uL (140-450); Red Blood Cells 2.49 10^6/uL (4.0-5.20); Red Cell Distribution Width 22.2 % (11.8-14.3)
[2020-03-22 12:42] LABS: Potassium 3.9 mmol/L (3.5-5.1)
[2020-03-22 12:52] LABS: INR 1.52 (0.9-1.15); Partial Thromboplastin Time 42.1 sec (23.64-32.05)
[2020-03-22 12:59] LABS: BUN/Creatinine Ratio 12.1; Bilirubin, Total 2.4 mg/dL (0.2-1.0); Total Protein 5.9 g/dL (6.4-8.2)
[2020-03-22 13:00] LABS: Albumin 1.8 g/dL (3.4-5.0)
[2020-03-22] MEDS ORDERED: phytonadione 10 MG in SODIUM CHL 0.9% 50 ML IV ONE (13:45)
[2020-03-22] MEDS ORDERED: levoFLOXacin 500MG 100 ML IV ONE (13:45)
[2020-03-22] MEDS ORDERED: MORPHINE SULF INJ 2 MG/ML SYRINGE 1ML IV PRN (13:45)
[2020-03-22] MEDS ORDERED: NITROGLYCERIN 0.4 MG SL TAB SL PRN (13:45)
--- NOTE | 2020-03-22 14:33 | NUR ---
PT IN ULTRASOUND FOR A PARACENTESIS BY DR GALLAGHER. S 107/52-91-96-100%. 1445: FINISHED WITH PROCEDURE. 4250 ML OF FLUID REMOVED. PT TOLERATED WELL
--- NOTE | 2020-03-22 15:00 | NUR ---
Telemetry admit from ANCELMO MONZON admitted to Telemetry unit after SBAR received. Patient oriented to PRATEEK JEFFREY, RN primary RN, unit, room, bed, and unit policies regarding patient care and visiting hours. Patient now on continuous telemetry monitoring, tele box # 28 and telemetry reading on arrival to unit is SR. Patient weighed by bedscale and encouraged to call if they need something. All questions and concerns addressed, patient verbalized understanding.
[2020-03-22] MEDS ORDERED: LORazepam 0.5 MG TAB PO PRN (15:15)
[2020-03-22] MEDS ORDERED: ACETAMINOPHEN 500 MG TAB PO PRN ×2 (15:15→15:30)
[2020-03-22] MEDS ORDERED: PROMETHAZINE HCL 25 MG/ML 1ML IV PRN (15:15)
[2020-03-22] MEDS ORDERED: traMADol HCL 50 MG TAB PO PRN (15:15)
[2020-03-22] MEDS ORDERED: PNEUMOCOCCAL VACC POLYS 25 MCG/0.5 ML VIAL IM ONE (16:00)
[2020-03-22] MEDS: metroNIDAZOLE 500MG/100ML 100 ML IV SCH ×2 (16:30→21:30)
[2020-03-22 16:32] VITALS: BP 96/55
[2020-03-22] MEDS ORDERED: PANT40TA2 PO (16:54)
[2020-03-22] MEDS ORDERED: FURO40TA4 PO (16:54)
[2020-03-22] MEDS ORDERED: SPIR100T4 PO (16:54)
[2020-03-22] MEDS ORDERED: FER325T PO (16:54)
[2020-03-22] MEDS ORDERED: MULTCAP45 PO (16:54)
[2020-03-22] MEDS ORDERED: RIFA550T PO (16:54)
[2020-03-22] MEDS ORDERED: ATOR40TA52 PO (16:54)
[2020-03-22 18:03] LABS: Hematocrit 20.6 % (36.0-46.0)
--- NOTE | 2020-03-22 18:18 | NUR ---
Critical lab value Hgb 7.0. paged hospitalist technical solutions director, awaiting call back at this time. Will cont to monitor patient.
--- NOTE | 2020-03-22 18:42 | NUR ---
Placed second page to hospitalist waiter/waitress economy class regarding critical hgb value. Awaiting call back at this time. Will cont to monitor patient.
--- NOTE | 2020-03-22 19:13 | NUR ---
Endorsed care to night RN. Including low hgb nd multiple attempts to reach hospitalist relocation specialist regarding critical lab value.
[2020-03-22 20:00] VITALS: BP 95/53
--- NOTE | 2020-03-22 20:35 | NUR ---
Spoke to hospitalist Fernando and updated on patient's status and critical Hemoglobin. Per hospitalist, to wait for Hgb midnight draw result and to transfuse blood if Hgb is <7
[2020-03-22 21:23] VITALS: BP 95/53
[2020-03-22] MEDS: PANTOPRAZOLE 40 MG TAB PO SCH (21:30)
[2020-03-22] MEDS ORDERED: FAMOTIDINE 20 MG TAB PO SCH (22:00)
[2020-03-23] VITALS (7 sets, daily range): BP systolic 92–110; BP diastolic 50–69
--- NOTE | 2020-03-23 00:25 | NUR ---
Updated hospitalist Fernando on latest Hgb result of 6.5. Received order to transfuse 1 unit PRBC. Acknowledged and read back, will carry out order
[2020-03-23 00:41] LABS: Hematocrit 19.3 % (36.0-46.0)
[2020-03-23 00:44] LABS: Hemoglobin 6.5 g/dL (12.2-16.2)
--- NOTE | 2020-03-23 01:10 | NUR ---
Updated patient on POC, consent signed for blood transfusion. Called Lab to draw Stat blood typing
--- NOTE | 2020-03-23 04:02 | NUR ---
1 unit of PRBC started after verified by 2nd RN Barbara, will monitor for BT reaction
[2020-03-23 06:00] LABS: Basophils # (auto) 0.1 10 ^3/uL (0-0.2); Eosinophils # (auto) 0.1 10 ^3/uL (0-0.8); Hemoglobin 7.2 g/dL (12.2-16.2); Lymphocytes # (auto) 1.6 10 ^3/uL (0.4-5.4); Lymphocytes % (auto) 13.8 % (10.0-50.0); Monocytes # (auto) 1.7 10 ^3/uL (0-1.3)
[2020-03-23] MEDS: metroNIDAZOLE 500MG/100ML 100 ML IV SCH ×2 (06:00→14:22)
[2020-03-23 06:02] LABS: Basophils % (auto) 0.7 % (0.0-2.0); Eosinophils % (auto) 0.4 % (0.0-7.0); Mean Corpuscular Hemoglobin 31.4 pg (28.0-32.0); Mean Corpuscular Hgb Conc. 34.3 g/dL (32.0-36.0); Mean Corpuscular Volume 91.7 fL (80.0-100.0); Monocytes % (auto) 14.5 % (0.0-12.0); Neutrophils # (auto) 8.3 10 ^3/uL (1.6-8.6); Neutrophils % (auto) 70.6 % (37.0-80.0); Platelet Count (auto) 145 10^3/uL (140-450); Red Blood Cells 2.29 10^6/uL (4.0-5.20); White Blood Cell 11.7 10^3/uL (4.4-10.8)
[2020-03-23 06:03] LABS: Red Cell Distribution Width 21.7 % (11.8-14.3)
--- NOTE | 2020-03-23 06:08 | NUR ---
Unable to give Flagyl IV at this time, patient is on blood transfusion. Will endorse to gunjan DEL RIO
--- NOTE | 2020-03-23 07:20 | NUR ---
Blood transfusion done, no BT reaction noted. Will endorse to daysronnie RN
--- NOTE | 2020-03-23 07:45 | NUR ---
Opening Note Received report from night guard RN. Patient is awake, alert and oriented x4. No signs or symptoms of distress noted at this time. Patient denies pain or shortness of breath at this time. Reviewed plan of care with patient, patient verbalized understanding. Bed in low and locked position, call light within reach. Will continue to monitor Q1 hour and PRN.
--- NOTE | 2020-03-23 09:08 | NUR ---
Call from Dr. Swetha Wiseman MD instructed this RN to keep the patient NPO until she comes to see the patient. Patient updated on plan of care, verbalized understanding. Will continue to monitor Q1 hour and PRN.
[2020-03-23] MEDS ORDERED: levoFLOXacin 250MG 50 ML IV SCH (10:00)
[2020-03-23] MEDS ORDERED: levoFLOXacin 500MG 100 ML IV SCH (10:00)
[2020-03-23 10:01] LABS: Hematocrit 22.3 % (36.0-46.0); Hemoglobin 7.6 g/dL (12.2-16.2)
--- NOTE | 2020-03-23 10:05 | NUR ---
Dr. Royer Narvaez at station States patient does not need to be NPO. Will continue to monitor Q1 hour and PRN.
[2020-03-23] MEDS: PANTOPRAZOLE 40 MG TAB PO SCH ×2 (10:12→22:18)
--- NOTE | 2020-03-23 11:45 | NUR ---
ultra sound tech at bedside
[2020-03-23] MEDS: ALBUMIN 25% 50 ML IV SCH ×2 (11:46→18:28)
[2020-03-23 12:30] LABS: Urine Bacteria NONE SEEN /hpf (None Seen); Urine Blood TRACE /uL (Negative); Urine Hyaline Cast FEW /lpf (0 - 2); Urine Mucus FEW (None Seen); Urine WBC 14 /hpf (0 - 5)
[2020-03-23 12:35] LABS: Protein, Urine 124.7 mg/dL (0.0-11.9)
--- NOTE | 2020-03-23 12:47 | NUR ---
urine sample collected and sent to lab
--- NOTE | 2020-03-23 13:50 | NUR ---
Dr. Morin at bedside Discussing plan of care with patient and this RN. Will continue to monitor Q1 hour and PRN.
[2020-03-23] MEDS: OCTREOTIDE ACETATE 100 MCG/ML VL SUBCUT SCH ×2 (14:00→22:25)
[2020-03-23] MEDS: MIDODRINE HCL 10 MG TAB PO SCH ×2 (14:22→18:25)
--- NOTE | 2020-03-23 14:31 | NUR ---
Nutrition Assessment Notes Please refer to link for full assessment notes. Est Energy needs: 9450-7790 kcals (25-30 kcal/kgBW) Est Protein needs: 64-77 gms/day (1.0-1.2 gm/kgBW) Will continue to monitor and reassess prn. Addendum: 03/23/20 at [address] Amended: Links added.
[2020-03-23] MEDS ORDERED: levETIRAcetam 500 MG TAB PO ONE (17:45)
[2020-03-23] MEDS ORDERED: LORazepam 2MG/ML-1ML VIAL IV PRN (18:00)
[2020-03-23] MEDS ORDERED: LORazepam 2MG/ML-1ML VIAL IV ONE (18:00)
--- NOTE | 2020-03-23 19:10 | NUR ---
Closing Note Report given to rn shift mgr RN. No signs or symptoms of distress noted at this time.
--- NOTE | 2020-03-23 19:35 | NUR ---
Opening Shift Note Assumed care of patient, awake and alert. No S/S of distress/SOB or pain. Instructed on POC and to call for assist PRN, patient verbalized understanding. Safety precaution in place, call light within reach, will continue to monitor for changes Q1hr and PRN.
[2020-03-23] MEDS: levETIRAcetam 500 MG TAB PO SCH (22:18)
[2020-03-24] MEDS: ALBUMIN 25% 50 ML IV SCH (02:48)
--- NOTE | 2020-03-24 03:18 | NUR ---
IV on LAC accidentally pulled out, removed with catheter intact, patient tolerated well IV insertion IV access obtained, via clean sterile technique by inserting 22 gauge catheter at LFA after [1] attempt(s). IV secured properly. No trauma to site. Patient tolerated well. NOTE: []
[2020-03-24 05:00] VITALS: BP 91/50
[2020-03-24 05:28] LABS: Basophils # (auto) 0.1 10 ^3/uL (0-0.2); Eosinophils # (auto) 0 10 ^3/uL (0-0.8); Eosinophils % (auto) 0.6 % (0.0-7.0); Hematocrit 24.7 % (36.0-46.0); Hemoglobin 8.6 g/dL (12.2-16.2); Lymphocytes # (auto) 1.8 10 ^3/uL (0.4-5.4); Lymphocytes % (auto) 20.8 % (10.0-50.0); Mean Corpuscular Hemoglobin 31.9 pg (28.0-32.0); Mean Corpuscular Hgb Conc. 34.7 g/dL (32.0-36.0); Monocytes # (auto) 1.1 10 ^3/uL (0-1.3); Monocytes % (auto) 12.8 % (0.0-12.0); Neutrophils # (auto) 5.6 10 ^3/uL (1.6-8.6); Neutrophils % (auto) 64.8 % (37.0-80.0); Platelet Count (auto) 175 10^3/uL (140-450); Red Blood Cells 2.68 10^6/uL (4.0-5.20); White Blood Cell 8.6 10^3/uL (4.4-10.8)
[2020-03-24 05:31] LABS: Red Cell Distribution Width 21.5 % (11.8-14.3)
[2020-03-24 05:42] LABS: Calcium 7.7 mg/dL (8.5-10.1); Potassium 4.4 mmol/L (3.5-5.1)
[2020-03-24] MEDS: MIDODRINE HCL 10 MG TAB PO SCH ×3 (06:08→18:13)
[2020-03-24] MEDS: OCTREOTIDE ACETATE 100 MCG/ML VL SUBCUT SCH ×3 (06:11→22:47)
--- NOTE | 2020-03-24 07:25 | NUR ---
Opening Note Received report from production supervisor off shift RN. Patient is resting in bed. No signs or symptoms of distress noted at this time. Patient is on room air, respirations even and unlabored. Bed in low and locked position, call light within reach. Will continue to monitor Q1 hour and PRN.
[2020-03-24 08:53] VITALS: BP 101/62
--- NOTE | 2020-03-24 09:30 | NUR ---
Patient taken down for MRI
[2020-03-24] MEDS: levETIRAcetam 500 MG TAB PO SCH ×2 (11:08→22:35)
[2020-03-24] MEDS: PANTOPRAZOLE 40 MG TAB PO SCH ×2 (11:09→22:35)
--- NOTE | 2020-03-24 12:07 | NUR ---
Dr. Ivana Addison at bedside MD at bed side discussing plan of care with patient and this RN. Will continue to monitor Q1 hour and PRN.
[2020-03-24] MEDS ORDERED: ALBUMIN 25% 50 ML IV ONE (12:45)
[2020-03-24] MEDS: FUROSEMIDE 20 MG TAB PO SCH (12:48)
[2020-03-24 13:00] VITALS: BP 96/59
[2020-03-24 17:00] VITALS: BP 93/64
--- NOTE | 2020-03-24 19:25 | NUR ---
Closing Note Report given to financial aid manager RN. No signs or symptoms of distress noted at this time.
[2020-03-24 20:05] VITALS: BP 102/62
--- NOTE | 2020-03-24 20:05 | NUR ---
Opening Shift Note Assumed care of patient, awake and alert. No S/S of distress/SOB or pain. Patient is on room air. Respirations even and unlabored. Seizure precautions present. Side rails are padded. Instructed on POC and to call for assist PRN, will continue to monitor for changes Q1hr and PRN.
[2020-03-24 22:00] VITALS: BP 102/62
--- NOTE | 2020-03-24 23:52 | NUR ---
Hospitalist paged regarding patient having third watery stool today. Awaiting callback at this time.
--- NOTE | 2020-03-25 | NUR ---
Dr. Echeverria called back regarding patient having third watery stool today. No new orders received. Per Dr. Echeverria will continue to monitor patient for fever, elevated WBC, and abdominal pain associated with watery stool.
[2020-03-25 05:00] VITALS: BP 97/59
[2020-03-25] MEDS: OCTREOTIDE ACETATE 100 MCG/ML VL SUBCUT SCH ×3 (05:30→21:26)
[2020-03-25] MEDS: MIDODRINE HCL 10 MG TAB PO SCH ×3 (05:30→18:13)
--- NOTE | 2020-03-25 07:00 | NUR ---
CLOSING NOTE No S/S of distress/SOB or pain. Patient is on room air. Respirations even and unlabored. Seizure precautions present. Side rails are padded. Suction at bedside.
--- NOTE | 2020-03-25 07:25 | NUR ---
Opening Note Received report from radiology assistant RN. Patient is resting in bed. No signs or symptoms of distress noted at this time. Patient is on room air, respirations even and unlabored. Patient denies pain at this time. Bed in low and locked position, call light within reach. Will continue to monitor Q1 hour and PRN.
[2020-03-25 07:39] LABS: Basophils # (auto) 0.1 10 ^3/uL (0-0.2); Basophils % (auto) 1.2 % (0.0-2.0); Nucleated Red Blood Cells % 0.1 %; Red Blood Cells 2.64 10^6/uL (4.0-5.20)
[2020-03-25 07:41] LABS: Eosinophils # (auto) 0.1 10 ^3/uL (0-0.8); Eosinophils % (auto) 0.6 % (0.0-7.0); Hematocrit 24.3 % (36.0-46.0); Hemoglobin 8.3 g/dL (12.2-16.2); Lymphocytes % (auto) 21.5 % (10.0-50.0); Mean Corpuscular Hemoglobin 31.5 pg (28.0-32.0); Mean Corpuscular Hgb Conc. 34.2 g/dL (32.0-36.0); Mean Corpuscular Volume 92.1 fL (80.0-100.0); Monocytes # (auto) 1.3 10 ^3/uL (0-1.3); Neutrophils % (auto) 62.7 % (37.0-80.0); Platelet Count (auto) 191 10^3/uL (140-450); White Blood Cell 9.5 10^3/uL (4.4-10.8)
[2020-03-25 07:43] LABS: Red Cell Distribution Width 20.6 % (11.8-14.3)
[2020-03-25 07:59] LABS: BUN/Creatinine Ratio 13.8; Calcium 7.6 mg/dL (8.5-10.1); Potassium 4.2 mmol/L (3.5-5.1)
[2020-03-25 08:26] VITALS: BP 98/58
--- NOTE | 2020-03-25 09:03 | NUR ---
Dr. Ivana Addison at bedside Discussing plan of care with patient and this RN. No new orders received at this time. Will continue to monitor Q1 hour and PRN.
[2020-03-25] MEDS: PANTOPRAZOLE 40 MG TAB PO SCH ×2 (10:02→21:20)
[2020-03-25] MEDS: FUROSEMIDE 20 MG TAB PO SCH (10:02)
[2020-03-25] MEDS: levETIRAcetam 500 MG TAB PO SCH ×2 (10:02→21:20)
[2020-03-25 12:30] VITALS: BP 94/63
[2020-03-25 17:27] VITALS: BP 111/69
[2020-03-25] MEDS: SPIRONOLACTONE 25 MG TAB PO SCH (18:14)
--- NOTE | 2020-03-25 19:08 | NUR ---
Closing Note Report given to shift superintendent RN. No signs or symptoms of distress noted at this time.
[2020-03-25 20:10] VITALS: BP 121/79
--- NOTE | 2020-03-25 20:10 | NUR ---
Opening Shift Note No S/S of distress/SOB or pain. Patient is on room air. Respirations even and unlabored. Seizure precautions present. Side rails are padded. Suction at bedside.
[2020-03-25 22:00] VITALS: BP 121/79
[2020-03-26] MEDS: SPIRONOLACTONE 25 MG TAB PO SCH (05:19)
[2020-03-26] MEDS: OCTREOTIDE ACETATE 100 MCG/ML VL SUBCUT SCH ×2 (05:20→14:09)
[2020-03-26] MEDS: MIDODRINE HCL 10 MG TAB PO SCH ×2 (05:20→12:04)
[2020-03-26 05:25] VITALS: BP 118/71
[2020-03-26 06:12] LABS: Basophils # (auto) 0.2 10 ^3/uL (0-0.2); Eosinophils # (auto) 0 10 ^3/uL (0-0.8); Hemoglobin 8.3 g/dL (12.2-16.2); Monocytes # (auto) 1.4 10 ^3/uL (0-1.3); Monocytes % (auto) 14.1 % (0.0-12.0)
[2020-03-26 06:14] LABS: Basophils % (auto) 1.6 % (0.0-2.0); Eosinophils % (auto) 0.2 % (0.0-7.0); Hematocrit 24.3 % (36.0-46.0); Lymphocytes # (auto) 1.9 10 ^3/uL (0.4-5.4); Lymphocytes % (auto) 19.2 % (10.0-50.0); Mean Corpuscular Hemoglobin 31.4 pg (28.0-32.0); Mean Corpuscular Hgb Conc. 34.3 g/dL (32.0-36.0); Mean Corpuscular Volume 91.8 fL (80.0-100.0); Neutrophils # (auto) 6.4 10 ^3/uL (1.6-8.6); Neutrophils % (auto) 64.9 % (37.0-80.0); Platelet Count (auto) 199 10^3/uL (140-450); Red Blood Cells 2.65 10^6/uL (4.0-5.20); White Blood Cell 9.8 10^3/uL (4.4-10.8)
[2020-03-26 06:23] LABS: Red Cell Distribution Width 20.9 % (11.8-14.3)
[2020-03-26 06:34] LABS: Calcium 7.7 mg/dL (8.5-10.1); Potassium 3.5 mmol/L (3.5-5.1)
--- NOTE | 2020-03-26 07:20 | NUR ---
Opening Shift Note Assumed care of patient, resting with eyes closed, arousable. No S/S of distress/SOB or pain. Respirations even and unlabored. Updated on POC and instructed to call for assistance as needed, patient verbalized understanding. Bed locked in lowest position, side rails up x2, call light within reach. Will continue to monitor for changes Q1hr and PRN.
[2020-03-26 09:00] VITALS: BP 106/66
[2020-03-26] MEDS: PANTOPRAZOLE 40 MG TAB PO SCH (09:52)
[2020-03-26] MEDS: FUROSEMIDE 20 MG TAB PO SCH (09:52)
[2020-03-26] MEDS: levETIRAcetam 500 MG TAB PO SCH (09:52)
[2020-03-26 13:00] VITALS: BP 114/72
[2020-03-26] MEDS ORDERED: SPIR25TA88 PO (13:03)
[2020-03-26] MEDS ORDERED: MID10T PO (13:03)
--- NOTE | 2020-03-26 13:27 | NUR ---
MARINE SERVICES TECHNICIAN AT BEDSIDE.
--- NOTE | 2020-03-26 14:00 | NUR ---
ELECTROENCEPHALOGRAM EEG COMPLETED AT BEDSIDE. PRIMARY RN MAY FRASER.
[2020-03-26 14:30] VITALS: BP 114/72
--- NOTE | 2020-03-26 16:10 | NUR ---
Discharge home Discharge instructions given as ordered. Encourage to follow up with PMD, GI, and [facility] as instructed. All questions and concerns addressed. Patient verbalized understanding. Medication reconciliation form completed and copy given to patient. Needed vaccines given. IV removed with catheter intact, pressure dressing applied. Telemetry unit returned to ICU. Patient taken to vehicle via wheelchair with all personal belongings, accompanied by staff. No distress noted at time of departure.
[2020-04-29] MEDS ORDERED: METO5TAB67 PO (13:36)
[2020-04-29] MEDS ORDERED: CHL5C PO (13:36)
[2020-05-03] MEDS ORDERED: AMOX500T86 PO (10:50)
[2020-05-03] MEDS ORDERED: LACT10SO3 PO (10:50)
[2020-05-03] MEDS ORDERED: SPIR25TA88 PO (10:57)
== END 2020-03-26 16:10 | disposition home or self-care (01) | DRG 432 ==
LOC: ER 11:28 → TELE 11:29 → TELE-CENTR 14:54
PROVIDERS: ADMIT Internal Medicine; ATTEND Internal Medicine Nephrology
PROC: 0W9G3ZZ Drainage of Peritoneal Cavity, Percutaneous Approach (ICD-10-PCS; principal; 2020-03-22)
PROC: 30233N1 Transfusion of Nonautologous Red Blood Cells into Peripheral Vein, Percutaneous Approach (ICD-10-PCS; 2020-03-23)
DX: K70.31 Alcoholic cirrhosis of liver with ascites (principal); K85.90 Acute pancreatitis without necrosis or infection, unspecified; D68.4 Acquired coagulation factor deficiency; N17.9 Acute kidney failure, unspecified; R56.9 Unspecified convulsions; K72.90 Hepatic failure, unspecified without coma; I12.9 Hypertensive chronic kidney disease with stage 1 through stage 4 chronic kidney disease, or unspecified chronic kidney disease; N18.3 Chronic kidney disease, stage 3 (moderate); D63.8 Anemia in other chronic diseases classified elsewhere; Z80.3 Family history of malignant neoplasm of breast; Z83.3 Family history of diabetes mellitus; Z86.73 Personal history of transient ischemic attack (TIA), and cerebral infarction without residual deficits; Z90.710 Acquired absence of both cervix and uterus
CPT/HCPCS: 10022; 36415; 49083; 70551; 76775; 76942; 80048; 80053; 81001; 82140; 82270; 82570; 82728; 83540; 83550; 83690; 84156; 84300; 84550; 85014; 85018; 85025; 85045; 85610; 85730; 86850; 86900; 86901; 86920; 87081; 95819; G0378; J1956; J3430; J3490

== ENCOUNTER 2020-04-13 21:32 | Inpatient (IN) | payer BC, MEDICAID ==
[~2020-04-13] VITALS: Ht 157.5 cm; Wt 60.7 kg
[~2020-04-13 21:32] MED LIST changes: +ATOR40TA52 PO; +FER325T PO; +MID10T PO; +MULTCAP45 PO; +PANT40TA2 PO; -POTA1TAB61 PO; +SPIR25TA88 PO
[2020-04-14] MEDS ORDERED: IOHEXOL 300 MG/ML 100ML BOTTLE IJ ONE (00:36)
[2020-04-14 01:09] LABS: Basophils # (auto) 0.1 10 ^3/uL (0-0.2); Basophils % (auto) 1.7 % (0.0-2.0); Eosinophils # (auto) 0.1 10 ^3/uL (0-0.8); Eosinophils % (auto) 0.7 % (0.0-7.0); Hematocrit 26.3 % (36.0-46.0); Lymphocytes # (auto) 2.4 10 ^3/uL (0.4-5.4); Lymphocytes % (auto) 27.7 % (10.0-50.0); Mean Corpuscular Hemoglobin 31.8 pg (28.0-32.0); Mean Corpuscular Volume 93.6 fL (80.0-100.0); Monocytes # (auto) 1.1 10 ^3/uL (0-1.3); Neutrophils # (auto) 4.8 10 ^3/uL (1.6-8.6); Neutrophils % (auto) 56.9 % (37.0-80.0); Nucleated Red Blood Cells % 0.1 %; Platelet Count (auto) 198 10^3/uL (140-450); Red Blood Cells 2.81 10^6/uL (4.0-5.20); White Blood Cell 8.5 10^3/uL (4.4-10.8)
[2020-04-14 01:19] LABS: Red Cell Distribution Width 20.8 % (11.8-14.3)
[2020-04-14 01:24] LABS: Alanine Aminotransferase 114 U/L (13-56); Albumin 2.3 g/dL (3.4-5.0); Anion Gap 11 (5-15); BUN/Creatinine Ratio 10.9; Blood Urea Nitrogen 15 mg/dL (7-18); Calcium 7.8 mg/dL (8.5-10.1); Carbon Dioxide 18 mmol/L (21-32); Chloride 111 mmol/L (98-107); GFR African American 55 mL/min; GFR Non-African American 45 mL/min; Glucose 104 mg/dL (74-106); Magnesium 1.9 mg/dL (1.6-2.6); Potassium 4.2 mmol/L (3.5-5.1); Sodium 140 mmol/L (136-145)
[2020-04-14 01:29] LABS: Alkaline Phosphatase 157 U/L (45-117); Aspartate Aminotransferase 158 U/L (15-37); Bilirubin, Total 3.8 mg/dL (0.2-1.0); Total Protein 6.7 g/dL (6.4-8.2)
[2020-04-14 01:42] LABS: INR 1.48 (0.9-1.15)
[2020-04-14] MEDS ORDERED: LACTULOSE 20Gm/30ML SOLN PO ONE (03:30)
[2020-04-14] MEDS ORDERED: SODIUM CHLORIDE 0.9% 1,000 ML IV SCH (06:06)
[2020-04-14] MEDS ORDERED: ACETAMINOPHEN 325 MG TAB PO PRN (06:15)
[2020-04-14] MEDS ORDERED: ONDANSETRON HCL 4 MG/2 ML VIAL IV PRN (06:15)
[2020-04-14] MEDS ORDERED: HYDROcodone-ACET 5/325MG TAB PO PRN (06:15)
[2020-04-14] MEDS ORDERED: DOCUSATE SOD 100 MG CAP PO PRN (06:15)
[2020-04-14] MEDS ORDERED: MORPHINE SULF INJ 2 MG/ML SYRINGE 1ML IV PRN (06:15)
[2020-04-14 06:41] LABS: Hematocrit 23.4 % (36.0-46.0); Mean Corpuscular Hemoglobin 32.5 pg (28.0-32.0); Mean Corpuscular Hgb Conc. 34.2 g/dL (32.0-36.0); Mean Corpuscular Volume 94.9 fL (80.0-100.0); Platelet Count (auto) 178 10^3/uL (140-450); Red Blood Cells 2.46 10^6/uL (4.0-5.20); White Blood Cell 7.1 10^3/uL (4.4-10.8)
[2020-04-14 06:44] LABS: Red Cell Distribution Width 20.8 % (11.8-14.3)
[2020-04-14 06:46] LABS: Band Neutrophils % (manual) 0; Basophils % (manual) 0 (0.0-2.0); Blast Cells 0; Metamyelocytes % 0; Myelocytes % 0; Promyelocytes % 0; Reactive Lymphocytes 0
[2020-04-14] MEDS: LACTULOSE 20Gm/30ML SOLN PO SCH ×4 (06:54→22:30)
[2020-04-14 07:00] LABS: Calcium 7.9 mg/dL (8.5-10.1); Potassium 3.4 mmol/L (3.5-5.1)
[2020-04-14 07:04] LABS: BUN/Creatinine Ratio 13.8
[2020-04-14 07:23] LABS: Eosinophils % (manual) 2 (0-7); Lymphocytes % (manual) 23 (10.0-50.0); Monocytes % (manual) 8 (0-12)
[2020-04-14 08:00] VITALS: BP 122/74
[2020-04-14 09:00] VITALS: BP 123/85
[2020-04-14 10:00] VITALS: BP 144/58
[2020-04-14] MEDS ORDERED: B-COMPLEX W/ C & FOLIC ACID(NEPHROVITE TAB) PO SCH (10:00)
[2020-04-14] MEDS: FERROUS SULFATE 325 MG TAB PO SCH ×2 (10:00→22:30)
[2020-04-14] MEDS ORDERED: MULTIPLE VITAMIN TAB PO SCH (10:00)
[2020-04-14] MEDS: FUROSEMIDE 40 MG TAB PO SCH (10:33)
[2020-04-14] MEDS: rifAXIMin 550 MG TAB PO SCH ×2 (10:33→22:46)
[2020-04-14] MEDS: PANTOPRAZOLE 40 MG TAB PO SCH (10:34)
[2020-04-14 12:00] VITALS: BP 127/76
[2020-04-14] MEDS ORDERED: FOLIC ACID 1 MG, MULTIPLE VITAMIN 10 ML, MAGNESIUM SULF SDV 50% 8 MEQ, THIAMINE INJ 100... INJ SCH ×5 (12:00)
[2020-04-14] MEDS: MIDODRINE HCL 10 MG TAB PO SCH ×2 (14:17→22:46)
[2020-04-14] MEDS: chlordiazePOXIDE HCL 25 MG CAP PO SCH ×2 (14:17→22:30)
[2020-04-14] MEDS: ALBUMIN 25% 100 ML IV SCH ×2 (15:34→22:48)
[2020-04-14] MEDS ORDERED: POTASSIUM CHL 20 Meq TABLET PO ONE (16:15)
[2020-04-14] MEDS: SPIRONOLACTONE 25 MG TAB PO SCH (18:07)
[2020-04-14] MEDS ORDERED: LORazepam 2MG/ML-1ML VIAL IV PRN (21:15)
[2020-04-14 22:00] VITALS: BP 133/66
[2020-04-14] MEDS: ATORVASTATIN 20 MG TAB PO SCH (22:30)
[2020-04-15] MEDS: OCTREOTIDE ACETATE 100 MCG/ML VL SUBCUT SCH ×4 (01:42→22:00)
[2020-04-15 05:00] VITALS: BP 123/78
[2020-04-15] MEDS: chlordiazePOXIDE HCL 25 MG CAP PO SCH ×3 (06:08→22:33)
[2020-04-15] MEDS: SPIRONOLACTONE 25 MG TAB PO SCH ×2 (06:08→17:48)
[2020-04-15] MEDS: MIDODRINE HCL 10 MG TAB PO SCH ×3 (06:08→22:35)
[2020-04-15] MEDS: LACTULOSE 20Gm/30ML SOLN PO SCH ×4 (06:09→22:33)
[2020-04-15] MEDS: ALBUMIN 25% 100 ML IV SCH (06:13)
[2020-04-15 08:29] VITALS: BP 134/81
[2020-04-15] MEDS: FERROUS SULFATE 325 MG TAB PO SCH ×2 (09:20→22:33)
[2020-04-15] MEDS: PANTOPRAZOLE 40 MG TAB PO SCH (09:21)
[2020-04-15] MEDS: rifAXIMin 550 MG TAB PO SCH ×2 (09:21→22:00)
[2020-04-15] MEDS: FUROSEMIDE 40 MG TAB PO SCH (09:22)
[2020-04-15] MEDS: FOLIC ACID 1 MG, MULTIPLE VITAMIN 10 ML, MAGNESIUM SULF SDV 50% 8 MEQ, THIAMINE INJ 100... INJ SCH ×5 (12:30)
[2020-04-15 16:53] VITALS: BP 147/79
[2020-04-15 22:00] VITALS: BP 131/83
[2020-04-15] MEDS: ATORVASTATIN 20 MG TAB PO SCH (22:35)
[2020-04-16 05:00] VITALS: BP 115/73
[2020-04-16 05:22] LABS: Albumin 2.6 g/dL (3.4-5.0); Calcium 8.2 mg/dL (8.5-10.1); Potassium 3.8 mmol/L (3.5-5.1)
[2020-04-16 05:26] LABS: BUN/Creatinine Ratio 8.1; Bilirubin, Total 3.9 mg/dL (0.2-1.0); Total Protein 6.3 g/dL (6.4-8.2)
[2020-04-16] MEDS: OCTREOTIDE ACETATE 100 MCG/ML VL SUBCUT SCH ×2 (06:00→22:49)
[2020-04-16] MEDS: MIDODRINE HCL 10 MG TAB PO SCH ×4 (06:00→22:46)
[2020-04-16] MEDS: SPIRONOLACTONE 25 MG TAB PO SCH ×3 (06:00→17:40)
[2020-04-16] MEDS: chlordiazePOXIDE HCL 25 MG CAP PO SCH ×4 (06:00→22:47)
[2020-04-16] MEDS: LACTULOSE 20Gm/30ML SOLN PO SCH ×4 (07:00→22:49)
[2020-04-16 07:56] VITALS: BP 139/89
[2020-04-16 08:31] LABS: Basophils # (auto) 0.1 10 ^3/uL (0-0.2); Eosinophils # (auto) 0 10 ^3/uL (0-0.8); Hemoglobin 7.8 g/dL (12.2-16.2); Lymphocytes # (auto) 1.9 10 ^3/uL (0.4-5.4); Mean Corpuscular Hemoglobin 32.1 pg (28.0-32.0); Nucleated Red Blood Cells % 0.1 %; White Blood Cell 7.9 10^3/uL (4.4-10.8)
[2020-04-16 08:33] LABS: Basophils % (auto) 1.2 % (0.0-2.0); Eosinophils % (auto) 0.1 % (0.0-7.0); Hematocrit 23.3 % (36.0-46.0); Lymphocytes % (auto) 23.9 % (10.0-50.0); Mean Corpuscular Hgb Conc. 33.4 g/dL (32.0-36.0); Mean Corpuscular Volume 96.1 fL (80.0-100.0); Monocytes % (auto) 13.2 % (0.0-12.0); Neutrophils # (auto) 4.8 10 ^3/uL (1.6-8.6); Neutrophils % (auto) 61.6 % (37.0-80.0); Platelet Count (auto) 180 10^3/uL (140-450); Red Blood Cells 2.42 10^6/uL (4.0-5.20); Red Cell Distribution Width 20.7 % (11.8-14.3)
[2020-04-16 08:49] LABS: INR 1.47 (0.9-1.15); Partial Thromboplastin Time 37.8 sec (23.64-32.05)
[2020-04-16] MEDS: FERROUS SULFATE 325 MG TAB PO SCH ×2 (09:26→22:48)
[2020-04-16] MEDS: FUROSEMIDE 40 MG TAB PO SCH (09:27)
[2020-04-16] MEDS: PANTOPRAZOLE 40 MG TAB PO SCH (09:27)
[2020-04-16] MEDS: rifAXIMin 550 MG TAB PO SCH ×2 (09:27→22:49)
[2020-04-16] MEDS ORDERED: SODIUM CHLORIDE LOCK 10 ML ONE (11:12)
[2020-04-16] MEDS ORDERED: LIDOCAINE VISCOUS 2% 15ML UD ONE (11:12)
[2020-04-16] MEDS ORDERED: diphenhdrAMINE HCL 50 MG/1 ML VL ONE (11:34)
[2020-04-16] MEDS: MIDAZOLAM HCL 5 MG/ML-1ML VIAL ONE ×2 (11:55→11:58)
[2020-04-16] MEDS: fentaNYL CITRATE 100 MCG/2 ML VL ONE ×2 (11:55→11:58)
[2020-04-16] MEDS ORDERED: METOCLOPRAMIDE HCL 5MG/ml INJ 2ml VIAL IV PRN (12:15)
[2020-04-16] MEDS: FOLIC ACID 1 MG, MULTIPLE VITAMIN 10 ML, MAGNESIUM SULF SDV 50% 8 MEQ, THIAMINE INJ 100... INJ SCH ×5 (12:59)
[2020-04-16 13:00] VITALS: BP 124/79
[2020-04-16 17:07] VITALS: BP 126/76
[2020-04-16 18:17] LABS: Creatinine, Urine 68 mg/dL (30.0-125.0); Sodium Urine 165 mmol/L (40-220)
[2020-04-16] MEDS: ATORVASTATIN 20 MG TAB PO SCH (22:47)
[2020-04-16 22:59] VITALS: BP 114/67
[2020-04-17 05:38] VITALS: BP 140/87
[2020-04-17] MEDS: SPIRONOLACTONE 25 MG TAB PO SCH ×2 (06:38→18:37)
[2020-04-17] MEDS: MIDODRINE HCL 10 MG TAB PO SCH ×2 (06:38→14:36)
[2020-04-17] MEDS: LACTULOSE 20Gm/30ML SOLN PO SCH ×3 (06:39→18:36)
[2020-04-17] MEDS: chlordiazePOXIDE HCL 25 MG CAP PO SCH ×2 (06:39→14:36)
[2020-04-17 08:00] VITALS: BP 129/81
[2020-04-17 09:00] VITALS: BP 129/81
[2020-04-17] MEDS: FUROSEMIDE 40 MG TAB PO SCH (10:00)
[2020-04-17] MEDS: FERROUS SULFATE 325 MG TAB PO SCH (10:00)
[2020-04-17] MEDS: PANTOPRAZOLE 40 MG TAB PO SCH (10:00)
[2020-04-17] MEDS: OCTREOTIDE ACETATE 100 MCG/ML VL SUBCUT SCH (10:01)
[2020-04-17] MEDS: rifAXIMin 550 MG TAB PO SCH (12:32)
[2020-04-17] MEDS: FOLIC ACID 1 MG, MULTIPLE VITAMIN 10 ML, MAGNESIUM SULF SDV 50% 8 MEQ, THIAMINE INJ 100... INJ SCH ×5 (12:35)
[2020-04-17 13:00] VITALS: BP 129/78
[2020-04-17 15:03] VITALS: BP 129/81
[2020-04-17 17:00] VITALS: BP 130/80
== END 2020-04-17 18:30 | disposition home or self-care (01) | DRG 432 ==
LOC: ER 21:36 → TELE 21:37 → DOU IN ICU 04-14 08:28 → WEST WING 04-14 15:07
PROVIDERS: ADMIT Hospitalist; ATTEND Family Medicine
PROC: 0DB88ZX Excision of Small Intestine, Via Natural or Artificial Opening Endoscopic, Diagnostic (ICD-10-PCS; 2020-04-16)
PROC: 0DB68ZX Excision of Stomach, Via Natural or Artificial Opening Endoscopic, Diagnostic (ICD-10-PCS; principal; 2020-04-16 11:54)
DX: K70.40 Alcoholic hepatic failure without coma (principal); K76.7 Hepatorenal syndrome; N17.9 Acute kidney failure, unspecified; K70.31 Alcoholic cirrhosis of liver with ascites; N18.2 Chronic kidney disease, stage 2 (mild); D63.8 Anemia in other chronic diseases classified elsewhere; E87.6 Hypokalemia; K75.81 Nonalcoholic steatohepatitis (NASH); D64.9 Anemia, unspecified; I95.9 Hypotension, unspecified; K44.9 Diaphragmatic hernia without obstruction or gangrene; K29.70 Gastritis, unspecified, without bleeding; K31.84 Gastroparesis; I12.9 Hypertensive chronic kidney disease with stage 1 through stage 4 chronic kidney disease, or unspecified chronic kidney disease; E66.9 Obesity, unspecified; Z80.3 Family history of malignant neoplasm of breast; Z79.899 Other long term (current) drug therapy; Z90.710 Acquired absence of both cervix and uterus; Z91.14 Patient's other noncompliance with medication regimen; Z68.24 Body mass index [BMI] 24.0-24.9, adult
CPT/HCPCS: 10022; 36415; 70450; 71250; 74176; 76700; 80048; 80053; 80320; 82140; 82570; 82962; 83735; 84300; 84484; 85007; 85025; 85027; 85610; 85730; 86850; 86900; 86901; 87081; 96360; G0378; J2250; P9047

== ENCOUNTER 2020-04-28 19:58 | Inpatient (IN) | payer BC, MEDICAID ==
[~2020-04-28] VITALS: Ht 154.9 cm; Wt 54.1 kg
[~2020-04-28 19:58] MED LIST changes: +DOXY100C2 PO; +IBUP600T27 PO; +IBUPROFEN PO; +POTA1TAB61 PO; +SPIR100T4 PO
[2020-04-28 21:51] LABS: Basophils # (auto) 0.1 10 ^3/uL (0-0.2); Eosinophils # (auto) 0 10 ^3/uL (0-0.8); Hemoglobin 8.4 g/dL (12.2-16.2)
[2020-04-28 21:53] LABS: Basophils % (auto) 2.1 % (0.0-2.0); Eosinophils % (auto) 0.3 % (0.0-7.0); Hematocrit 24.8 % (36.0-46.0); Lymphocytes # (auto) 1.8 10 ^3/uL (0.4-5.4); Lymphocytes % (auto) 24.6 % (10.0-50.0); Mean Corpuscular Hemoglobin 32.4 pg (28.0-32.0); Mean Corpuscular Hgb Conc. 33.9 g/dL (32.0-36.0); Mean Corpuscular Volume 95.5 fL (80.0-100.0); Monocytes % (auto) 13.4 % (0.0-12.0); Neutrophils # (auto) 4.3 10 ^3/uL (1.6-8.6); Neutrophils % (auto) 59.6 % (37.0-80.0); Platelet Count (auto) 176 10^3/uL (140-450); White Blood Cell 7.1 10^3/uL (4.4-10.8)
[2020-04-28 21:54] LABS: Red Cell Distribution Width 20.1 % (11.8-14.3)
[2020-04-28 22:07] LABS: Albumin 2.9 g/dL (3.4-5.0); BUN/Creatinine Ratio 12.9; Calcium 9.2 mg/dL (8.5-10.1); Potassium 3.2 mmol/L (3.5-5.1)
[2020-04-28 22:09] LABS: Bilirubin, Total 4.5 mg/dL (0.2-1.0); Total Protein 7.8 g/dL (6.4-8.2)
[2020-04-29] MEDS ORDERED: LACTULOSE 20Gm/30ML SOLN PO ONE (03:30)
[2020-04-29] MEDS ORDERED: POTASSIUM EFFERVESENT TAB 25 MEQ GT ONE (04:00)
[2020-04-29] MEDS ORDERED: ACETAMINOPHEN 325 MG TAB PO PRN (05:00)
[2020-04-29] MEDS ORDERED: SODIUM CHLORIDE 0.9% 1,000 ML IV SCH (05:00)
[2020-04-29] MEDS ORDERED: MORPHINE SULF INJ 2 MG/ML SYRINGE 1ML IV PRN (05:00)
[2020-04-29] MEDS ORDERED: HYDROcodone-ACET 5/325MG TAB PO PRN (05:00)
[2020-04-29] MEDS ORDERED: DOCUSATE SOD 100 MG CAP PO PRN (05:00)
[2020-04-29] MEDS ORDERED: ONDANSETRON HCL 4 MG/2 ML VIAL IV PRN (05:00)
[2020-04-29 06:35] LABS: Urine Bacteria None Seen /hpf (None Seen); Urine WBC None Seen /hpf (0 - 5)
[2020-04-29 06:42] LABS: Basophils # (auto) 0.1 10 ^3/uL (0-0.2); Basophils % (auto) 1.1 % (0.0-2.0); Eosinophils # (auto) 0 10 ^3/uL (0-0.8); Eosinophils % (auto) 0.2 % (0.0-7.0); Hemoglobin 8.2 g/dL (12.2-16.2); Mean Corpuscular Hemoglobin 32.8 pg (28.0-32.0); Mean Corpuscular Hgb Conc. 34.4 g/dL (32.0-36.0); Neutrophils # (auto) 3.6 10 ^3/uL (1.6-8.6)
[2020-04-29 06:44] LABS: Urine Blood Normal /uL (Negative); Urine Specific Gravity 1.038 (1.001-1.035)
[2020-04-29 06:45] LABS: Hematocrit 23.8 % (36.0-46.0); Lymphocytes # (auto) 1.3 10 ^3/uL (0.4-5.4); Lymphocytes % (auto) 22.4 % (10.0-50.0); Mean Corpuscular Volume 95.1 fL (80.0-100.0); Monocytes # (auto) 0.9 10 ^3/uL (0-1.3); Neutrophils % (auto) 60.3 % (37.0-80.0); Nucleated Red Blood Cells % 0.1 %; Platelet Count (auto) 149 10^3/uL (140-450); Red Cell Distribution Width 19.8 % (11.8-14.3); White Blood Cell 5.9 10^3/uL (4.4-10.8)
[2020-04-29 06:50] LABS: Potassium 3.7 mmol/L (3.5-5.1)
[2020-04-29 07:00] LABS: BUN/Creatinine Ratio 13.7
[2020-04-29 07:08] LABS: Alcohol, Urine < 3.0 mg/dL (0-10); Amphetamine Screen, Urine NEGATIVE (NEGATIVE); Barbiturate Scree,Urine NEGATIVE (NEGATIVE); Benzodiazephine Screen, Urine POSITIVE (NEGATIVE); Cannabinoid Screen, Urine NEGATIVE (NEGATIVE); Cocaine Screen, Urine NEGATIVE (NEGATIVE); Opiate Scree,Urine NEGATIVE (NEGATIVE); Phencyclidine Screen, Urine NEGATIVE (NEGATIVE)
[2020-04-29] MEDS ORDERED: METO5TAB67 PO ×2 (13:36)
[2020-04-29] MEDS ORDERED: CHL5C PO ×2 (13:36)
[2020-04-29] MEDS: LACTULOSE 20Gm/30ML SOLN PO SCH ×2 (17:55→21:07)
[2020-04-29 20:00] VITALS: BP 118/61
[2020-04-29 22:00] VITALS: BP 118/61
[2020-04-30] MEDS: LACTULOSE 20Gm/30ML SOLN PO SCH ×6 (02:12→21:36)
[2020-04-30 05:00] VITALS: BP 118/73
[2020-04-30 06:55] LABS: Eosinophils # (auto) 0 10 ^3/uL (0-0.8); Eosinophils % (auto) 0.2 % (0.0-7.0); Hematocrit 24.9 % (36.0-46.0); Lymphocytes # (auto) 1.3 10 ^3/uL (0.4-5.4); Mean Corpuscular Hemoglobin 32.6 pg (28.0-32.0); Monocytes # (auto) 0.7 10 ^3/uL (0-1.3); Neutrophils # (auto) 3.3 10 ^3/uL (1.6-8.6); Nucleated Red Blood Cells % 0.1 %; White Blood Cell 5.4 10^3/uL (4.4-10.8)
[2020-04-30 06:58] LABS: Basophils # (auto) 0 10 ^3/uL (0-0.2); Basophils % (auto) 0.7 % (0.0-2.0); Hemoglobin 8.5 g/dL (12.2-16.2); Lymphocytes % (auto) 24.6 % (10.0-50.0); Mean Corpuscular Hgb Conc. 33.9 g/dL (32.0-36.0); Monocytes % (auto) 13.4 % (0.0-12.0); Neutrophils % (auto) 61.1 % (37.0-80.0); Platelet Count (auto) 159 10^3/uL (140-450)
[2020-04-30 07:06] LABS: Red Cell Distribution Width 20.9 % (11.8-14.3)
[2020-04-30 07:18] LABS: INR 1.51 (0.9-1.15); Potassium 3.5 mmol/L (3.5-5.1)
[2020-04-30 07:31] LABS: Albumin 2.7 g/dL (3.4-5.0); BUN/Creatinine Ratio 13.2; Bilirubin, Total 4.6 mg/dL (0.2-1.0); Calcium 8.8 mg/dL (8.5-10.1)
[2020-04-30 09:00] VITALS: BP 117/59
[2020-04-30 13:00] VITALS: BP 124/80
[2020-04-30 17:00] VITALS: BP 117/70
[2020-04-30 20:00] VITALS: BP 125/81
[2020-04-30 22:04] VITALS: BP 125/81
[2020-05-01] MEDS: LACTULOSE 20Gm/30ML SOLN PO SCH ×6 (02:28→21:29)
[2020-05-01 05:00] VITALS: BP 121/67
[2020-05-01 09:00] VITALS: BP 118/76
[2020-05-01] MEDS ORDERED: cefTRIAXone 1GM/50ML D5W 50 ML IV ONE (11:45)
[2020-05-01 13:00] VITALS: BP 128/60
[2020-05-01 17:00] VITALS: BP 128/85
[2020-05-01 20:00] VITALS: BP 120/79
[2020-05-01] MEDS: cefTRIAXone 1GM/50ML D5W 50 ML IV SCH (21:29)
[2020-05-01 22:00] VITALS: BP 120/79
[2020-05-02] MEDS: LACTULOSE 20Gm/30ML SOLN PO SCH ×6 (02:41→21:01)
[2020-05-02 05:06] LABS: Basophils # (auto) 0.1 10 ^3/uL (0-0.2); Eosinophils # (auto) 0 10 ^3/uL (0-0.8); Eosinophils % (auto) 0.1 % (0.0-7.0); Hematocrit 22.7 % (36.0-46.0); Hemoglobin 7.7 g/dL (12.2-16.2); Lymphocytes # (auto) 1.6 10 ^3/uL (0.4-5.4); Mean Corpuscular Hemoglobin 32.9 pg (28.0-32.0); Mean Corpuscular Hgb Conc. 33.9 g/dL (32.0-36.0); Neutrophils # (auto) 3.1 10 ^3/uL (1.6-8.6); Red Blood Cells 2.34 10^6/uL (4.0-5.20); White Blood Cell 5.4 10^3/uL (4.4-10.8)
[2020-05-02 05:07] LABS: Basophils % (auto) 1.1 % (0.0-2.0); Lymphocytes % (auto) 28.9 % (10.0-50.0); Mean Corpuscular Volume 97.1 fL (80.0-100.0); Monocytes # (auto) 0.6 10 ^3/uL (0-1.3); Neutrophils % (auto) 57.9 % (37.0-80.0); Nucleated Red Blood Cells % 0.1 %; Platelet Count (auto) 168 10^3/uL (140-450)
[2020-05-02 05:20] VITALS: BP 115/66
[2020-05-02 05:24] LABS: BUN/Creatinine Ratio 16.4; Calcium 8.4 mg/dL (8.5-10.1); Potassium 3.4 mmol/L (3.5-5.1)
[2020-05-02 05:35] LABS: Red Cell Distribution Width 20.6 % (11.8-14.3)
[2020-05-02 09:00] VITALS: BP 120/71
[2020-05-02] MEDS: cefTRIAXone 1GM/50ML D5W 50 ML IV SCH ×2 (09:34→21:01)
[2020-05-02] MEDS ORDERED: POTASSIUM CHL 20 Meq TABLET PO ONE (10:00)
[2020-05-02 13:00] VITALS: BP 126/77
[2020-05-02 17:00] VITALS: BP 127/71
[2020-05-02 22:00] VITALS: BP 137/95
[2020-05-03] MEDS: LACTULOSE 20Gm/30ML SOLN PO SCH ×3 (02:28→10:44)
[2020-05-03 05:00] VITALS: BP 133/71
[2020-05-03 06:18] LABS: Potassium 3.8 mmol/L (3.5-5.1)
[2020-05-03 06:25] LABS: BUN/Creatinine Ratio 14.3
[2020-05-03 08:04] VITALS: BP 122/78
[2020-05-03] MEDS ORDERED: SODIUM BICARBONATE 650 MG TAB PO ONE (08:15)
[2020-05-03 08:40] VITALS: BP 122/78
[2020-05-03] MEDS: cefTRIAXone 1GM/50ML D5W 50 ML IV SCH (09:33)
[2020-05-03] MEDS ORDERED: AMOX500T86 PO ×2 (10:50)
[2020-05-03] MEDS ORDERED: LACT10SO3 PO ×2 (10:50)
[2020-05-03] MEDS ORDERED: SPIR25TA88 PO ×2 (10:57)
[2020-05-03 11:30] VITALS: BP 122/78
[2020-05-03] MEDS ORDERED: SODIUM BICARBONATE 650 MG TAB PO SCH (12:00)
[2020-05-03 12:30] VITALS: BP 116/79
== END 2020-05-03 13:15 | disposition home or self-care (01) | DRG 442 ==
LOC: ER 19:58 → TELE 19:59 → TELE-WESTW 04-29 17:46
PROVIDERS: ADMIT Hospitalist; ATTEND Internal Medicine Nephrology
DX: K72.00 Acute and subacute hepatic failure without coma (principal); E44.0 Moderate protein-calorie malnutrition; N17.9 Acute kidney failure, unspecified; N39.0 Urinary tract infection, site not specified; N18.4 Chronic kidney disease, stage 4 (severe); D63.8 Anemia in other chronic diseases classified elsewhere; E87.6 Hypokalemia; K29.70 Gastritis, unspecified, without bleeding; K70.9 Alcoholic liver disease, unspecified; K31.84 Gastroparesis; K44.9 Diaphragmatic hernia without obstruction or gangrene; K74.60 Unspecified cirrhosis of liver; Z68.22 Body mass index [BMI] 22.0-22.9, adult; Z79.899 Other long term (current) drug therapy; Z80.9 Family history of malignant neoplasm, unspecified; Z90.710 Acquired absence of both cervix and uterus
CPT/HCPCS: 36415; 70450; 80048; 80053; 80061; 80307; 81001; 82140; 85025; 85610; 85730; 87040; 87081; 87086; 93005; G0378; J0696

== ENCOUNTER → 2020-05-09 | Outpatient (CLI) | payer BC, MEDICAID ==
[~2020-05-09] MED LIST changes: +AMOX500T86 PO; -ATOR40TA52 PO; -DOXY100C2 PO; -FURO40TA4 PO; -IBUP600T27 PO; -IBUPROFEN PO; +LACT10SO3 PO; -POTA1TAB61 PO; -SPIR100T4 PO
[2020-05-09 10:24] LABS: Basophils # (auto) 0 10 ^3/uL (0-0.2); Basophils % (auto) 1.1 % (0.0-2.0); Eosinophils # (auto) 0 10 ^3/uL (0-0.8); Eosinophils % (auto) 0.6 % (0.0-7.0); Hematocrit 25.6 % (36.0-46.0); Hemoglobin 8.5 g/dL (12.2-16.2); Lymphocytes # (auto) 0.9 10 ^3/uL (0.4-5.4); Lymphocytes % (auto) 26.7 % (10.0-50.0); Mean Corpuscular Hemoglobin 33.1 pg (28.0-32.0); Mean Corpuscular Hgb Conc. 33.3 g/dL (32.0-36.0); Mean Corpuscular Volume 99.5 fL (80.0-100.0); Monocytes # (auto) 0.4 10 ^3/uL (0-1.3); Monocytes % (auto) 11.3 % (0.0-12.0); Neutrophils # (auto) 2.1 10 ^3/uL (1.6-8.6); Neutrophils % (auto) 60.3 % (37.0-80.0); Platelet Count (auto) 163 10^3/uL (140-450); Red Blood Cells 2.57 10^6/uL (4.0-5.20); White Blood Cell 3.5 10^3/uL (4.4-10.8)
[2020-05-09 10:28] LABS: Red Cell Distribution Width 21.9 % (11.8-14.3)
[2020-05-09 10:44] LABS: Albumin 2.8 g/dL (3.4-5.0); Calcium 9.1 mg/dL (8.5-10.1); Potassium 4.1 mmol/L (3.5-5.1)
[2020-05-09 10:48] LABS: Bilirubin, Total 2.7 mg/dL (0.2-1.0); Total Protein 7.2 g/dL (6.4-8.2)
== END | disposition home or self-care (01) ==
LOC: LAB 10:01
PROVIDERS: ATTEND Internal Medicine Nephrology
DX: K74.60 Unspecified cirrhosis of liver (principal); G93.40 Encephalopathy, unspecified
CPT/HCPCS: 36415; 80053; 82140; 85025

== ENCOUNTER 2020-05-18 05:36 | Inpatient (IN) | payer BC, MEDICAID ==
[~2020-05-18] VITALS: Ht 154.9 cm; Wt 56.0 kg
[2020-05-18] MEDS ORDERED: LACTULOSE 20Gm/30ML SOLN PO ONE (07:15)
[2020-05-18 08:50] LABS: Basophils # (auto) 0 10 ^3/uL (0-0.2); Basophils % (auto) 0.6 % (0.0-2.0); Eosinophils # (auto) 0 10 ^3/uL (0-0.8); Eosinophils % (auto) 0.7 % (0.0-7.0); Hematocrit 28.4 % (36.0-46.0); Hemoglobin 9.4 g/dL (12.2-16.2); Lymphocytes # (auto) 1.1 10 ^3/uL (0.4-5.4); Lymphocytes % (auto) 26.3 % (10.0-50.0); Mean Corpuscular Hemoglobin 33.1 pg (28.0-32.0); Mean Corpuscular Volume 100.3 fL (80.0-100.0); Monocytes # (auto) 0.5 10 ^3/uL (0-1.3); Monocytes % (auto) 11.5 % (0.0-12.0); Neutrophils # (auto) 2.5 10 ^3/uL (1.6-8.6); Neutrophils % (auto) 60.9 % (37.0-80.0); Nucleated Red Blood Cells % 0.1 %; Platelet Count (auto) 160 10^3/uL (140-450); Red Blood Cells 2.83 10^6/uL (4.0-5.20); Red Cell Distribution Width 18.7 % (11.8-14.3); White Blood Cell 4.1 10^3/uL (4.4-10.8)
[2020-05-18] MEDS ORDERED: NITROGLYCERIN 0.4 MG SL TAB SL PRN (09:30)
[2020-05-18] MEDS ORDERED: MORPHINE SULF INJ 2 MG/ML SYRINGE 1ML IV PRN (09:30)
[2020-05-18 09:38] LABS: Albumin 3.3 g/dL (3.4-5.0); BUN/Creatinine Ratio 13.8; Calcium 8.7 mg/dL (8.5-10.1); Potassium 3.9 mmol/L (3.5-5.1)
[2020-05-18 09:40] LABS: INR 1.45 (0.9-1.15); Partial Thromboplastin Time 35.3 sec (23.64-32.05)
[2020-05-18 09:41] LABS: Bilirubin, Total 3.6 mg/dL (0.2-1.0); Total Protein 7.8 g/dL (6.4-8.2)
[2020-05-18] MEDS ORDERED: traMADol HCL 50 MG TAB PO PRN (10:00)
[2020-05-18] MEDS ORDERED: metroNIDAZOLE 500 MG TAB PO ONE (10:00)
[2020-05-18] MEDS ORDERED: PROMETHAZINE HCL 25 MG/ML 1ML IV PRN (10:00)
[2020-05-18] MEDS ORDERED: NEOMYCIN SULFATE 500 MG TAB PO ONE (10:00)
[2020-05-18] MEDS: PANTOPRAZOLE 40 MG TAB PO SCH (10:49)
[2020-05-18] MEDS: SODIUM CHLORIDE 0.9% 1,000 ML IV SCH ×2 (10:50→20:00)
[2020-05-18 13:25] LABS: Urine Bacteria NONE SEEN /hpf (None Seen); Urine Blood 2+ /uL (Negative); Urine Mucus FEW (None Seen); Urine Specific Gravity 1.015 (1.001-1.035); Urine WBC 4 /hpf (0 - 5)
[2020-05-18] MEDS: metroNIDAZOLE 500 MG TAB PO SCH ×2 (14:06→22:08)
[2020-05-18] MEDS: NEOMYCIN SULFATE 500 MG TAB PO SCH ×2 (14:29→22:09)
[2020-05-18] MEDS: LACTULOSE 20Gm/30ML SOLN PO SCH ×2 (18:21→23:44)
[2020-05-18] MEDS: rifAXIMin 550 MG TAB PO SCH (22:09)
[2020-05-18] MEDS ORDERED: LORazepam 2MG/ML-1ML VIAL IV ONE (23:45)
[2020-05-19 05:00] VITALS: BP 125/81
[2020-05-19] MEDS: NEOMYCIN SULFATE 500 MG TAB PO SCH ×3 (06:00→22:00)
[2020-05-19] MEDS: SODIUM CHLORIDE 0.9% 1,000 ML IV SCH ×2 (06:04→16:00)
[2020-05-19] MEDS: metroNIDAZOLE 500 MG TAB PO SCH ×3 (06:06→22:00)
[2020-05-19] MEDS: LACTULOSE 20Gm/30ML SOLN PO SCH ×3 (06:06→17:37)
[2020-05-19 07:30] LABS: Basophils # (auto) 0 10 ^3/uL (0-0.2); Eosinophils # (auto) 0.1 10 ^3/uL (0-0.8); Eosinophils % (auto) 1.9 % (0.0-7.0); Hematocrit 25.7 % (36.0-46.0); Hemoglobin 8.9 g/dL (12.2-16.2); Lymphocytes # (auto) 0.9 10 ^3/uL (0.4-5.4); Lymphocytes % (auto) 24.5 % (10.0-50.0); Mean Corpuscular Hemoglobin 33.7 pg (28.0-32.0); Mean Corpuscular Hgb Conc. 34.5 g/dL (32.0-36.0); Mean Corpuscular Volume 97.7 fL (80.0-100.0); Monocytes # (auto) 0.3 10 ^3/uL (0-1.3); Monocytes % (auto) 9.6 % (0.0-12.0); Neutrophils # (auto) 2.2 10 ^3/uL (1.6-8.6); Platelet Count (auto) 141 10^3/uL (140-450); Red Blood Cells 2.63 10^6/uL (4.0-5.20); Red Cell Distribution Width 18.1 % (11.8-14.3); White Blood Cell 3.6 10^3/uL (4.4-10.8)
[2020-05-19 07:52] LABS: Albumin 2.8 g/dL (3.4-5.0); BUN/Creatinine Ratio 14.9; Calcium 8.7 mg/dL (8.5-10.1); Potassium 3.7 mmol/L (3.5-5.1)
[2020-05-19 07:56] LABS: Bilirubin, Total 4.3 mg/dL (0.2-1.0); Total Protein 6.9 g/dL (6.4-8.2)
[2020-05-19] MEDS: PANTOPRAZOLE 40 MG TAB PO SCH (09:14)
[2020-05-19] MEDS: rifAXIMin 550 MG TAB PO SCH ×2 (10:19→22:00)
[2020-05-19 12:00] VITALS: BP 126/80
[2020-05-19] MEDS ORDERED: FOLIC ACID 1 MG, MULTIPLE VITAMIN 10 ML, MAGNESIUM SULF SDV 50% 8 MEQ, THIAMINE INJ 100... INJ SCH ×5 (12:00)
[2020-05-19] MEDS: FOLIC ACID 1 MG, MULTIPLE VITAMIN 10 ML, MAGNESIUM SULF SDV 50% 8 MEQ, THIAMINE INJ 100... INJ SCH ×5 (13:53)
[2020-05-19] MEDS ORDERED: LORazepam 2MG/ML-1ML VIAL IV PRN ×2 (14:00)
[2020-05-19 14:31] LABS: Urine Bacteria NONE SEEN /hpf (None Seen); Urine Blood 2+ /uL (Negative); Urine Mucus FEW (None Seen); Urine Specific Gravity 1.018 (1.001-1.035); Urine WBC 12 /hpf (0 - 5)
[2020-05-19 17:43] VITALS: BP 142/88
[2020-05-19 22:00] VITALS: BP 110/65
[2020-05-20] MEDS: SODIUM CHLORIDE 0.9% 1,000 ML IV SCH ×2 (02:00→12:03)
[2020-05-20 05:43] VITALS: BP 129/76
[2020-05-20] MEDS: LACTULOSE 20Gm/30ML SOLN PO SCH ×3 (06:00→12:52)
[2020-05-20] MEDS: NEOMYCIN SULFATE 500 MG TAB PO SCH ×2 (06:00→12:52)
[2020-05-20] MEDS: metroNIDAZOLE 500 MG TAB PO SCH ×2 (06:00→12:52)
[2020-05-20 09:00] VITALS: BP 122/77
[2020-05-20] MEDS: rifAXIMin 550 MG TAB PO SCH (09:32)
[2020-05-20] MEDS: PANTOPRAZOLE 40 MG TAB PO SCH (09:32)
[2020-05-20 11:16] VITALS: BP 122/77
[2020-05-20] MEDS: FOLIC ACID 1 MG, MULTIPLE VITAMIN 10 ML, MAGNESIUM SULF SDV 50% 8 MEQ, THIAMINE INJ 100... INJ SCH ×5 (12:03)
[2020-05-20 13:00] VITALS: BP 126/71
== END 2020-05-20 14:12 | disposition home or self-care (01) | DRG 442 ==
LOC: ER 05:36 → TELE 05:37 → TELE-WESTW 23:53
PROVIDERS: ADMIT Internal Medicine; ATTEND Internal Medicine
DX: K72.00 Acute and subacute hepatic failure without coma (principal); R18.8 Other ascites; E72.20 Disorder of urea cycle metabolism, unspecified; K74.60 Unspecified cirrhosis of liver; D72.819 Decreased white blood cell count, unspecified; D64.9 Anemia, unspecified; R16.1 Splenomegaly, not elsewhere classified; R56.9 Unspecified convulsions; K80.20 Calculus of gallbladder without cholecystitis without obstruction; K43.9 Ventral hernia without obstruction or gangrene; Z90.710 Acquired absence of both cervix and uterus; Z79.899 Other long term (current) drug therapy; Z72.89 Other problems related to lifestyle; Z80.9 Family history of malignant neoplasm, unspecified
CPT/HCPCS: 36415; 70450; 71045; 74176; 80053; 80320; 81001; 82140; 85025; 85610; 85730; 99291; G0378

== ENCOUNTER → 2020-05-28 | Outpatient (CLI) | payer BC, MEDICAID ==
[2020-05-28 10:33] LABS: Potassium 3.3 mmol/L (3.5-5.1)
[2020-05-28 10:46] LABS: Albumin 2.8 g/dL (3.4-5.0); Bilirubin, Total 1.8 mg/dL (0.2-1.0); Calcium 8.5 mg/dL (8.5-10.1)
== END | disposition home or self-care (01) ==
LOC: LAB 09:02
PROVIDERS: ATTEND Internal Medicine Nephrology
DX: K74.60 Unspecified cirrhosis of liver (principal); K72.90 Hepatic failure, unspecified without coma
CPT/HCPCS: 36415; 80053; 82140

== ENCOUNTER → 2020-06-01 | Day surgery (SDC) | payer BC, MEDICAID ==
[2020-05-30 14:45] LABS: Basophils # (auto) 0 10 ^3/uL (0-0.2); Eosinophils # (auto) 0.1 10 ^3/uL (0-0.8); Eosinophils % (auto) 2.5 % (0.0-7.0); Hematocrit 30.1 % (36.0-46.0); Lymphocytes # (auto) 1.3 10 ^3/uL (0.4-5.4); Lymphocytes % (auto) 27.3 % (10.0-50.0); Mean Corpuscular Hemoglobin 33.2 pg (28.0-32.0); Mean Corpuscular Hgb Conc. 33.4 g/dL (32.0-36.0); Mean Corpuscular Volume 99.5 fL (80.0-100.0); Monocytes # (auto) 0.5 10 ^3/uL (0-1.3); Monocytes % (auto) 9.6 % (0.0-12.0); Neutrophils # (auto) 2.9 10 ^3/uL (1.6-8.6); Neutrophils % (auto) 59.6 % (37.0-80.0); Platelet Count (auto) 172 10^3/uL (140-450); Red Blood Cells 3.03 10^6/uL (4.0-5.20); Red Cell Distribution Width 17.7 % (11.8-14.3); White Blood Cell 4.8 10^3/uL (4.4-10.8)
[2020-05-30 14:57] LABS: INR 1.4 (0.9-1.15); Partial Thromboplastin Time 34.7 sec (23.64-32.05)
[~2020-06-01] VITALS: Ht 154.9 cm; Wt 52.2 kg
[~2020-06-01] MED LIST changes: -AMOX500T86 PO; +LIDOCAINE VISCOUS 2% 15ML UD ONE; +SODIUM CHLORIDE LOCK 10 ML ONE; +diphenhdrAMINE HCL 50 MG/1 ML VL ONE
[2020-06-01] MEDS: fentaNYL CITRATE 100 MCG/2 ML VL ONE ×2 (12:23→12:26)
[2020-06-01] MEDS: MIDAZOLAM HCL 5 MG/ML-1ML VIAL ONE ×2 (12:23→12:26)
[2020-06-01 13:06] VITALS: BP 115/74
== END | disposition home or self-care (01) ==
LOC: GI 11:07
PROVIDERS: ATTEND Internal Medicine Gastroenterology
DX: D64.9 Anemia, unspecified (principal); K44.9 Diaphragmatic hernia without obstruction or gangrene; K22.10 Ulcer of esophagus without bleeding; K29.70 Gastritis, unspecified, without bleeding; K31.9 Disease of stomach and duodenum, unspecified; G40.909 Epilepsy, unspecified, not intractable, without status epilepticus; Z90.710 Acquired absence of both cervix and uterus; N28.9 Disorder of kidney and ureter, unspecified; Z11.59 Encounter for screening for other viral diseases
CPT/HCPCS: 36415; 43239; 85025; 85610; 85730; J1200; J2250; J3010; J7030; U0003

== ENCOUNTER → 2020-07-16 | Outpatient (CLI) | payer BC, MEDICAID ==
[~2020-07-16] MED LIST changes: -LIDOCAINE VISCOUS 2% 15ML UD ONE; -SODIUM CHLORIDE LOCK 10 ML ONE; -diphenhdrAMINE HCL 50 MG/1 ML VL ONE
[2020-07-16 09:47] LABS: Basophils # (auto) 0 10 ^3/uL (0-0.2); Basophils % (auto) 0.9 % (0.0-2.0); Eosinophils # (auto) 0.2 10 ^3/uL (0-0.8); Eosinophils % (auto) 5.4 % (0.0-7.0); Hematocrit 34.1 % (36.0-46.0); Hemoglobin 11.8 g/dL (12.2-16.2); Lymphocytes # (auto) 1.5 10 ^3/uL (0.4-5.4); Lymphocytes % (auto) 33.3 % (10.0-50.0); Mean Corpuscular Hemoglobin 31.7 pg (28.0-32.0); Mean Corpuscular Hgb Conc. 34.8 g/dL (32.0-36.0); Mean Corpuscular Volume 91.3 fL (80.0-100.0); Monocytes # (auto) 0.4 10 ^3/uL (0-1.3); Monocytes % (auto) 8.5 % (0.0-12.0); Neutrophils # (auto) 2.3 10 ^3/uL (1.6-8.6); Neutrophils % (auto) 51.9 % (37.0-80.0); Platelet Count (auto) 117 10^3/uL (140-450); Red Blood Cells 3.73 10^6/uL (4.0-5.20); Red Cell Distribution Width 15.6 % (11.8-14.3); White Blood Cell 4.5 10^3/uL (4.4-10.8)
[2020-07-16 09:50] LABS: Urine Blood Negative /uL (Negative); Urine Specific Gravity 1.021 (1.001-1.035)
[2020-07-16 10:30] LABS: Calcium 9.4 mg/dL (8.5-10.1); Creatinine, Urine 113 mg/dL (30.0-125.0); Potassium 3.5 mmol/L (3.5-5.1); Protein, Urine 21.3 mg/dL (0.0-11.9)
[2020-07-16 10:35] LABS: BUN/Creatinine Ratio 17.2
== END | disposition home or self-care (01) ==
LOC: LAB 09:18
PROVIDERS: ATTEND Student in an Organized Health Care Education/Training Program
DX: N18.3 Chronic kidney disease, stage 3 (moderate) (principal); E78.5 Hyperlipidemia, unspecified; E56.9 Vitamin deficiency, unspecified; R76.0 Raised antibody titer; R79.82 Elevated C-reactive protein (CRP); D63.1 Anemia in chronic kidney disease; R80.9 Proteinuria, unspecified
CPT/HCPCS: 36415; 80048; 80061; 81003; 82306; 82570; 84156; 85025

== ENCOUNTER → 2020-07-23 | Outpatient (CLI) | payer BC, MEDICAID | END | disposition home or self-care (01) | LOC: LAB 12:38 | PROVIDERS: ATTEND Internal Medicine Nephrology | DX: K72.90 Hepatic failure, unspecified without coma (principal) | CPT/HCPCS: 82140 ==

== ENCOUNTER → 2024-11-29 | Outpatient (CLI) | payer MEDICAID ==
[~2024-11-29] MED LIST changes: +SPIR25TA PO; -SPIR25TA88 PO
[2024-11-29 08:56] LABS: Basophils # (auto) 0 10 ^3/uL (0-0.2); Basophils % (auto) 0.7 % (0.0-2.0); Eosinophils # (auto) 0.3 10 ^3/uL (0-0.8); Eosinophils % (auto) 4.2 % (0.0-7.0); Hematocrit 43.5 % (36.0-46.0); Hemoglobin 15.1 g/dL (12.2-16.2); Lymphocytes # (auto) 1.7 10 ^3/uL (0.4-5.4); Lymphocytes % (auto) 25.9 % (10.0-50.0); Mean Corpuscular Hemoglobin 33.8 pg (28.0-32.0); Mean Corpuscular Hgb Conc. 34.6 g/dL (32.0-36.0); Mean Corpuscular Volume 97.7 fL (80.0-100.0); Monocytes # (auto) 0.5 10 ^3/uL (0-1.3); Monocytes % (auto) 7.2 % (0.0-12.0); Neutrophils # (auto) 4.1 10 ^3/uL (1.6-8.6); Nucleated Red Blood Cells % 0.1 %; Platelet Count (auto) 166 10^3/uL (140-450); Red Blood Cells 4.45 10^6/uL (4.0-5.20); Red Cell Distribution Width 12.9 % (11.8-14.3); White Blood Cell 6.6 10^3/uL (4.4-10.8)
[2024-11-29 09:07] LABS: Urine Bacteria FEW /hpf (None Seen); Urine Blood Negative /uL (Negative); Urine Clarity Clear (Clear); Urine Color Colorless (Yellow); Urine Protein, UAD Negative (Negative); Urine Specific Gravity 1.007 (1.001-1.035); Urine Squamous Epithelial Cell FEW /hpf (<5); Urine Urobilinogen Normal (Negative); Urine WBC 1 /hpf (0 - 5)
[2024-11-29 09:12] LABS: INR 1.07 (0.9-1.15); Partial Thromboplastin Time 28.7 SEC (24.5-34.5); Prothrombin Time 11.3 sec (9.3-11.8)
[2024-11-29 09:24] LABS: % Iron Saturation 48.9 % (15-50)
[2024-11-29 09:29] LABS: Alanine Aminotransferase 32 U/L (7-40); Albumin 4.6 g/dL (3.2-4.8); Alkaline Phosphatase 107 U/L (46-116); Anion Gap 10 (5-15); Aspartate Aminotransferase 37 U/L (13-40); BUN/Creatinine Ratio 14.6 (10.0-20.0); Blood Urea Nitrogen 12 mg/dL (9-23); Calcium 10.2 mg/dL (8.7-10.4); Carbon Dioxide 23 mmol/L (20-31); Chloride 107 mmol/L (98-107); Glucose 86 mg/dL (74-106); Sodium 140 mmol/L (136-145); Total Protein 7.8 g/dL (5.7-8.2); Triglycerides 65 mg/dL (< 150)
[2024-11-29 09:45] LABS: Bilirubin, Total 1.3 mg/dL (0.2-1.0); Cholesterol 218 mg/dL (< 200); HDL Cholesterol 104 mg/dL (40-59); LDL Cholesterol 105 mg/dL (< 100)
[2024-11-29 09:56] LABS: Folate (Folic Acid) 19.12 ng/mL (>5.38)
[2024-11-30 07:06] LABS: AFP Serum Tumor Marker 2.4 ng/mL (0.0-6.4); RPR Non Reactive (Non Reactive)
[2024-12-01 10:41] LABS: Hepatitis B Core Total AB Negative (Negative)
[2024-12-01 12:37] LABS: Hepatitis A Total Antibody Negative (Negative); Hepatitis B Surface Antibody Negative (Negative); Hepatitis B Surface Antigen Negative (Negative); Hepatitis C Antibody Negative (Negative)
== END | disposition home or self-care (01) ==
LOC: LAB 08:04
DX: Z00.01 Encounter for general adult medical examination with abnormal findings (principal); Z11.3 Encounter for screening for infections with a predominantly sexual mode of transmission; N39.0 Urinary tract infection, site not specified; K70.30 Alcoholic cirrhosis of liver without ascites; R56.9 Unspecified convulsions
CPT/HCPCS: 36415; 80053; 80061; 81001; 82105; 82274; 82306; 82607; 82746; 82977; 83036; 83540; 83550; 84443; 85025; 85610; 85730; 86592; 86703; 86704; 86706; 86708; 86803; 87086; 87340

== ENCOUNTER → 2025-03-23 | Outpatient (CLI) | payer MEDICAID ==
[2025-03-23 08:31] LABS: Urine Bacteria FEW /hpf (None Seen); Urine Blood Negative /uL (Negative); Urine Clarity Clear (Clear); Urine Color Colorless (Yellow); Urine Protein, UAD Negative (Negative); Urine Specific Gravity 1.005 (1.001-1.035); Urine Squamous Epithelial Cell FEW /hpf (<5); Urine Urobilinogen Normal (Negative); Urine WBC 1 /HPF (0-5)
[2025-03-23 08:37] LABS: Alanine Aminotransferase 19 U/L (7-40); Albumin 4.3 g/dL (3.2-4.8); Alkaline Phosphatase 92 U/L (46-116); Anion Gap 7 (5-15); Aspartate Aminotransferase 23 U/L (13-40); BUN/Creatinine Ratio 14.3 (10.0-20.0); Blood Urea Nitrogen 12 mg/dL (9-23); Calcium 9.7 mg/dL (8.7-10.4); Carbon Dioxide 25 mmol/L (20-31); Chloride 107 mmol/L (98-107); Glucose 88 mg/dL (74-106); LDL Cholesterol 83 mg/dL (< 100); Potassium 4.2 mmol/L (3.5-5.1); Sodium 139 mmol/L (136-145); Triglycerides 53 mg/dL (< 150)
[2025-03-23 08:38] LABS: Basophils # (auto) 0 10 ^3/uL (0-0.2); Basophils % (auto) 0.9 % (0.0-2.0); Cholesterol 215 mg/dL (< 200); Eosinophils # (auto) 0.2 10 ^3/uL (0-0.8); Eosinophils % (auto) 4.8 % (0.0-7.0); HDL Cholesterol 111 mg/dL (40-59); Hematocrit 40.4 % (36.0-46.0); Lymphocytes # (auto) 1.3 10 ^3/uL (0.4-5.4); Lymphocytes % (auto) 28.8 % (10.0-50.0); Mean Corpuscular Hemoglobin 34.7 pg (28.0-32.0); Mean Corpuscular Hgb Conc. 34.5 g/dL (32.0-36.0); Mean Corpuscular Volume 100.6 fL (80.0-100.0); Monocytes # (auto) 0.4 10 ^3/uL (0-1.3); Neutrophils # (auto) 2.5 10 ^3/uL (1.6-8.6); Neutrophils % (auto) 55.5 % (37.0-80.0); Platelet Count (auto) 164 10^3/uL (140-450); Red Blood Cells 4.02 10^6/uL (4.0-5.20); Red Cell Distribution Width 13.4 % (11.8-14.3); White Blood Cell 4.4 10^3/uL (4.4-10.8)
== END | disposition home or self-care (01) ==
LOC: LAB 07:54
PROVIDERS: ATTEND Nurse Practitioner Family
DX: E55.9 Vitamin D deficiency, unspecified (principal); E78.5 Hyperlipidemia, unspecified; D69.6 Thrombocytopenia, unspecified; R73.03 Prediabetes
CPT/HCPCS: 36415; 80053; 80061; 81001; 82306; 83036; 84443; 85025